=== PATIENT | female | born 1985 | race Caucasian/White ===

== ENCOUNTER 2020-02-16 10:28 | Inpatient (IN) | payer OTHER, SELFPAY ==
[2020-02-16] VITALS (7 sets, daily range): BP systolic 119–142; BP diastolic 69–89; PULSE 59–74; RESP 16–18; TEMP 36.6–37.2; O2SAT 94–100; BMI 49.7; BMI 49.4
--- NOTE | 2020-02-16 10:40 | CT_ITS ---
STUDY: CT ABDOMEN AND PELVIS WITH CONTRAST REASON FOR EXAM: Female, 34 years old. LLQ PAIN, ABSCESS, CHILLS RADIATION DOSAGE (If Supplied By Facility): CTDIvol = ( 17.06 ) mGy, DLP = ( 1476.28 ) mGycm TECHNIQUE: Transaxial images were obtained from the dome of the diaphragm to the symphysis pubis without oral contrast. IV 100mL Isovue-300 was administered. Sagittal and coronal images were reconstructed. Individualized dose optimization techniques were used for this CT. COMPARISON: None. FINDINGS: The visualized lung bases are unremarkable. The visualized portions of the heart are within normal limits. There is decreased attenuation of the liver consistent with steatosis. Normal gallbladder and extrahepatic biliary system. Normal spleen. Normal pancreas. Normal bilateral adrenal glands. Normal right kidney. Normal left kidney. Normal visualized stomach. Normal small intestine. Normal colon. The appendix is visualized and appears normal. Normal abdominal aorta. Normal inferior vena cava. There is borderline retroperitoneal lymphadenopathy with enlarged nodes no greater than 10mm in the short axis diameter. Normal urinary bladder. Small inguinal lymph nodes bilaterally. There is a 6.6 x 12.8 cm area of the subcutaneous edematous changes overlying the left groin. This is suggestive of cellulitis. No tracey abscess is seen. Normal abdominal wall. There are degenerative changes of the visualized lumbar spine. CT/Abdomen/Pelvis W IV Cont ONLY IMPRESSION: Findings suggest cellulitis in the area of the left groin as described. Electronically Signed: Brandon Darnell, at 12:17 EDT , Service support ,
[2020-02-16 11:00] LABS: Absolute Lymphocyte Count 3.99 X10^3/uL (0.83-4.51); Absolute Neutrophil Count 13.8 X10^3/uL (2.0-7.7); Basophil# 0.07 X10^3/uL; Basophil% 0.4 % (0-1); Eosinophil# 0.12 X10^3/uL; Eosinophils% 0.6 % (0-5); Hematocrit 46.3 % (37-47); Hemoglobin 15.3 g/dL (12.0-15.0); Lymphocyte # 3.99 X10^3/ul (4.0); Lymphocyte % 20.3 % (19-41); Mean Corpuscular Hgb 29.4 pg (27.0-32.0); Mean Platelet Vol. 11.6 fl (6.2-12.0); Monocyte# 1.64 X10^3/uL; Monocyte% 8.3 % (0-10); NRBC Flagged by Analyzer 0 % (0-5); Neutrophil # 13.75 X10^3/uL (2.7-7.7); Neutrophil % 69.7 % (47-70); POSITIVE DIFFERENTIAL YES; Platelet Count 220 K/mm3 (150-450); RBC Distribution Width CV 13.1 % (11.6-14.6); RBC Distribution Width SD 42.4 fl (35.1-43.9); White Blood Count 19.7 K/mm3 (4.4-11.0)
[2020-02-16 11:01] LABS: Differential Indicated SCAN CRITERIA MET
[2020-02-16 11:08] LABS: Bacteria 0 SEEN /hpf (None Seen); Mucous, Urine 0 SEEN /hpf (<or=2+); White Blood Cells 0 SEEN /hpf (0-5)
[2020-02-16] MEDS: Ondansetron 4 MG/2 ML Vial IV (11:09)
[2020-02-16] MEDS: Morphine 4 MG/ML Syringe IV (11:09)
[2020-02-16] MEDS: 0.9% Normal Saline 1,000 ML 1000 ML IV (11:09)
[2020-02-16 11:13] LABS: Anion Gap 6 (5-15); BUN 11 mg/dL (7-18); Calcium,Total 9.4 mg/dL (8.5-10.1); Chloride 102 mmol/L (98-107); Creatinine, Serum 0.85 mg/dL (0.55-1.02); EST Glomerular Filtration Rate 81 mL/min (>60); Est Glom Filt Rate - Afr Amer 98 mL/min (>60); Glucose 300 mg/dL (74-106); Potassium 4.2 mmol/L (3.5-5.1); Sodium Level 132 mmol/L (136-145)
--- NOTE | 2020-02-16 11:17 | ED.VISSUMM ---
- ER Visit Summary Date of Service: 02/16/20 Chief Complaint: Elevated blood sugar and left abdominal wall abscess History of Present Illness: The patient is a 34 F presenting to the ED for elevated blood sugars and abdominal wall abscess. She states she has had these abscesses in the past. She has had subjective fever and chills at home. She talked to her doctor yesterday who advised her to come in due to her blood sugar running high. She was started on Bactrim yesterday. Denies other complaints. Physical Examination: Vitals are stable. Patient is afebrile. Alert no acute distress. HEENT exam is unremarkable. Neck is supple. Lungs are clear and equal bilaterally. Heart is regular rate and rhythm. Abdomen is soft obese, left lower quadrant tenderness and induration Extremities are unremarkable. Skin is warm and dry. Remainder of exam is unremarkable. Emergency Department Course and Treatment: Patient was given IV fluids, morphine, Zofran. CBC shows white count 19.7. Chemistries show sodium 132, glucose 300. Urinalysis shows 0 white cells, 0-5 white blood cells, glucose. Blood cultures were sent. CT abdomen pelvis shows there is a 6.6 x 12.8 cm area of the subcutaneous edematous changes overlying the left groin. This is suggestive of cellulitis. No tracey abscess is seen. Patient was given Ancef IV. Discussed with hospitalist for observation. Disposition: Observation Impression: Abdominal wall cellulitis This note was generated with [employer] dictation software. It may contain incorrect words, spelling, and punctuation that were not noted in review of the chart prior to signing ED Disposition - Plan for ED Patient: Referrals: Amanda Wilkes MD [Primary Care Provider] -
[2020-02-16 11:52] LABS: Color, Urine Yellow (Yellow); Glucose, Dipstick 1000 mg/dl (Normal); Ketone-Dipstick 50 mg/dl (Negative); Leukocyte Esterase-Dipstick Negative /ul (Negative); Nitrite-Dipstick Negative (Negative); Occult Blood-Urine 25 /ul (Negative); Protein-Dipstick 30 mg/dl (Negative); Urine Bilirubin Dipstick Negative (Negative); Urine Clarity Sl. Cloudy (Clear); Urine Urobilinogen Normal (Normal)
[2020-02-16 12:04] LABS: Red Blood Cells-Urine 0-5 SEEN /hpf (0-5); Squamous Epithelial Cells - UA 0-5 SEEN /hpf (5-10)
[2020-02-16] MEDS: Cefazolin 1 GM/50 ML BAG IV ×2 (13:22→15:30)
--- NOTE | 2020-02-16 13:22 | NURSING ---
DR AMBROCIO CUTLER
--- NOTE | 2020-02-16 13:30 | NURSING ---
MED SURG OBS TERBETO ABD WALL CELLULITIS
--- NOTE | 2020-02-16 14:33 | PCM.HP.STD ---
Problem List (1) Type 2 diabetes mellitus Status: Chronic (2) Hyperlipidemia Status: Chronic (3) Hypertension Status: Chronic History of Present Illness Date of Admission: 02/16/20 Chief Complaint: Left groin redness. The patient is a 34 year old F who presents emergency room due to left groin/abdomen redness, firmness and pain. Patient reports she felt a bump in that area and now it is very painful to touch with increasing redness and induration. She reports fever and chills at home. Denies drainage in that area. She has a history of hidradenitis suppurativa requiring abscess drainage in the past. Patient reports her blood glucose has been out of control recently. She reports her last hemoglobin A1c was 13%. She denies nausea, vomiting. Denies other associated complaints. She has a past medical history of hypertension, hyperlipidemia, uncontrolled type 2 diabetes mellitus. Past Medical History Past Medical History (Chronic Problems): Chronic Problems Type 2 diabetes mellitus (Chronic) Hyperlipidemia (Chronic) Hypertension (Chronic) Allergies No Known Allergies Allergy (Verified 02/16/20 10:29) Home Medications: Ambulatory Orders Medication Instructions Recorded Atorvastatin Calcium [Lipitor] 40 mg PO QHS 02/16/20 Dulaglutide [Trulicity] 0.75 mg SQ QWEEK 02/16/20 Ergocalciferol [Vitamin D] 1 cap PO QWEEK 02/16/20 Insulin Glargine,Hum.rec.anlog 14 unit SUBCUT QHS 02/16/20 [Basaglar Kwikpen U-100] Labetalol HCl 100 mg PO BID 02/16/20 Sulfamethoxazole/Trimethoprim 1 ea PO BID 02/16/20 [Sulfamethoxazole-Tmp Ds Tablet] metFORMIN HCl [Glucophage] 1,000 mg PO BID 02/16/20 Surgical History: no surgical history Psychiatric History: No pertinent psych hx MENTAL TELEPATHIST History: No pertinent MENTAL TELEPATHIST history Lives: Alone Smoking Status: Current some day smoker Tobacco Use: Cigarettes Alcohol: None Drugs: None - *Family History Maternal History Items: - - Denies known maternal medical history including cardiac history. Paternal History Items: Diabetes, Heart Disease, Hypertension Review of Systems Constitutional: Reports: Chills, Fever. Denies: Weight Change HEENT: Denies: Head Aches, Sinus Congestion, Sinus Drainage Cardiovascular: Denies: Chest Pain, Palpitations Respiratory: Denies: Cough, Shortness of breath at rest, Sputum production Gastrointestinal: Denies: Abdominal Pain, Nausea, Vomiting Genitourinary: Denies: Dysuria Musculoskeletal: Denies: Joint Pain, Joint Tenderness Skin: Reports: - - Left groin/abdomen redness, firmness, pain. Neurological: Denies: Numbness, Tingling, Focal weakness Psychiatric: Denies: Anxiety, Depression, Homicidal Ideations, Suicidal Ideations Hematologic/ Lymphatic: Denies: Easy Bruising, Easy Bleeding VTE Information - Inpt Only VTE Present on Admission: No VTE Mechan Device Prophylaxis: None VTE Pharm Prophylaxis ordered?: No Reason prophylaxis not ordered:: Treatment Not Indicated - Physical Exam Vitals/I&O's: Vital Signs Temp Pulse Resp BP Pulse Ox 98.1 F 60 18 119/72 100 02/16/20 14:25 02/16/20 14:25 02/16/20 14:25 02/16/20 14:25 02/16/20 14:25 Oxygen Delivery Method Room Air Weight: 325 lb Body Mass Index (BMI) 49.4 Intake and Output for Last 24 Hours 02/14/20 02/15/20 02/16/20 23:59 23:59 23:59 Intake Total 1050 / 1050 Balance 1050 / 1050 General: Alert, Oriented x3, Cooperative HEENT: Atraumatic, PERRLA, EOMI, Normocephalic Neck: Supple, No JVD, Negative Carotid Bruits Lungs: Clear to auscultation, Normal air movement Cardiovascular: Regular rate, No murmurs Abdomen: Bowel Sounds Present, Soft, Non Tender, Non-Distended, Obese Extremities: No clubbing, No cyanosis, No edema, Capillary Refill Less than 3 Seconds Skin: - - Left groin and abdomen redness with large area of induration. Musculoskeletal: No Tenderness to Palpation of Joints or Extremities Neurological: Cranial nerves II-XII grossly intact Psych/Mental Status: Normal Affect, Appropriate Laboratory Results 02/16/20 10:49: WBC 19.7 H, RBC 5.20, Hgb 15.3 H, Hct 46.3, MCV 89.0, MCH 29.4, MCHC 33.0, RDW Std Deviation 42.4, RDW Coeff of Violeta 13.1, Plt Count 220, MPV 11.6, Immature Gran % (Auto) 0.700, Neut % (Auto) 69.7, Lymph % (Auto) 20.3, [place] % (Auto) 8.3, Eos % (Auto) 0.6, Baso % (Auto) 0.4, Absolute Neuts (auto) 13.8 H, Absolute Lymphs (auto) 3.99, Nucleated RBC % 0, Differential Comment COMMENT, Diff Path Review January02/16/20 10:49: Sodium 132 L, Potassium 4.2, Chloride 102, Carbon Dioxide 24.0, Anion Gap 6, BUN 11, Creatinine 0.85, Estim Creat Clear Calc 92.30, Est GFR (MDRD) Af Amer 98, Est GFR (MDRD) Non-Af 81, BUN/Creatinine Ratio 13.0, Glucose 300 H, Calcium 9.4 02/16/20 11:04: Urine Color Yellow, Urine Clarity Sl. Cloudy, Urine pH 6.0, Ur Specific [place] 1.020, Urine Protein 30 H, Urine Glucose (UA) 1000 H, Urine Ketones 50 H, Urine Occult Blood 25 H, Urine Nitrite Negative, Urine Bilirubin Negative, Urine Urobilinogen Normal, Ur Leukocyte Esterase Negative, Urine RBC 0-5 SEEN, Urine WBC 0 SEEN, Ur Squamous Epith Cells 0-5 SEEN, Urine Bacteria 0 SEEN, Urine Mucus 0 SEEN Current Medications Atorvastatin Calcium (Lipitor) 40 mg PO QHS [facility] Dextrose (D50w Syringe) 0 gm IV X1 PRN; Protocol PRN Reason: Hypoglycemia Glucagon () 1 mg IM .X1 PRN PRN Reason: Hypoglycemia Cefazolin Sodium 2 gm/ Sodium (Chloride) 110 mls @ 150 mls/hr IV Q8 [facility] Sodium Chloride () 250 mls @ 15 mls/hr IV .[id number] PRN PRN Reason: Saline Flush Sodium Chloride () 250 mls @ 15 mls/hr IV .[id number] PRN PRN Reason: Additional IVPB Infusion Cefazolin Sodium () 1 gm in 50 mls @ 150 mls/hr IV X1 ONE Stop: 02/16/20 15:04 Insulin Glargine (Lantus (Bkc)) 14 units SC QHS [facility] Insulin Human Lispro (Humalog Kwikpen (Bkc)) 0 unit SC ACHS [facility]; Protocol Labetalol HCl (Trandate) 100 mg PO BID [facility]formin [facility] ([facility]) [facility] Ondansetron HCl (Zofran) 4 mg IV Q8H PRN PRN PRN Reason: NAUSEA/VOMITING Oxycodone HCl (Oxyir) 10 mg PO Q4H PRN PRN PRN Reason: Pain Score 6-10/10 Sodium Chloride () 10 - 40 ml IV UD PRN PRN Reason: SALINE FLUSH Assessment/Plan 1. Sepsis secondary to abdominal wall cellulitis, history of hidradenitis suppurativa-CT of abdomen pelvis shows cellulitis, no abscess. Warm compress. IV cefazolin. PRN pain regimen. 2. Uncontrolled type 2 diabetes mellitus-on metformin, Trulicity with recent addition of Basaglar. Will increase long-acting to 20 units nightly with further titration. 3. Morbid obesity-encouraged diet lifestyle applications. 4. Hyperlipidemia-continue statin. 5. Tobacco dependence-current pack per day smoker. Encouraged cessation. Declines nicotine replacement patch. DVT prophylaxis-not indicated, low risk This patient was seen by SAUL Garces under the supervision of Dr. Miller.
[2020-02-16] MEDS: 0.9% Saline Lock 10 ML Syringe IV ×3 (15:30→21:07)
[2020-02-16] MEDS: Insulin Lispro 100 UNIT/ML INSULN.PEN SC ×2 (15:31→21:10)
[2020-02-16 15:41] LABS: Bedside Glucose 243 mg/dL (70-110)
[2020-02-16] MEDS: Ibuprofen 600 MG Tablet PO ×2 (16:17→23:15)
[2020-02-16] MEDS: metFORMIN HCl 1,000 MG Tablet 1000 MG PO (16:17)
[2020-02-16] MEDS: oxyCODONE 5 MG Tablet 10 MG PO (17:32)
[2020-02-16] MEDS: Cefazolin 2 GM in 0.9% Normal Saline 100 ML IV (21:07)
[2020-02-16] MEDS: Atorvastatin Calcium 40 MG Tablet PO (21:17)
[2020-02-16] MEDS: Labetalol 100 MG Tablet PO (21:17)
[2020-02-16 21:51] LABS: Bedside Glucose 248 mg/dL (70-110)
[2020-02-17] MEDS: 0.9% Saline Lock 10 ML Syringe IV ×6 (05:20→23:11)
[2020-02-17] MEDS: Ibuprofen 600 MG Tablet PO ×3 (05:20→23:11)
[2020-02-17] MEDS: Cefazolin 2 GM in 0.9% Normal Saline 100 ML IV ×3 (05:20→23:11)
[2020-02-17 05:25] VITALS: BP 138/75; PULSE 64; RESP 16; TEMP 37; O2SAT 99
[2020-02-17 05:46] LABS: Absolute Lymphocyte Count 3.98 X10^3/uL (0.83-4.51); Absolute Neutrophil Count 13.3 X10^3/uL (2.0-7.7); Basophil# 0.12 X10^3/uL; Basophil% 0.6 % (0-1); Eosinophil# 0.21 X10^3/uL; Eosinophils% 1.1 % (0-5); Hematocrit 46.1 % (37-47); Hemoglobin 14.6 g/dL (12.0-15.0); Lymphocyte # 3.98 X10^3/ul (4.0); Lymphocyte % 20.2 % (19-41); Mean Corp Hgb Conc 31.7 g/dL (32-36); Mean Corpuscular Hgb 29.1 pg (27.0-32.0); Mean Platelet Vol. 11.7 fl (6.2-12.0); Monocyte# 1.92 X10^3/uL; Monocyte% 9.7 % (0-10); NRBC Flagged by Analyzer 0 % (0-5); Neutrophil # 13.34 X10^3/uL (2.7-7.7); Neutrophil % 67.7 % (47-70); POSITIVE DIFFERENTIAL YES; Platelet Count 184 K/mm3 (150-450); RBC Distribution Width CV 13.2 % (11.6-14.6); RBC Distribution Width SD 44.7 fl (35.1-43.9); Red Blood Count 5.01 M/mm3 (4.2-5.4); White Blood Count 19.7 K/mm3 (4.4-11.0)
[2020-02-17 05:47] LABS: Differential Indicated SCAN CRITERIA MET
[2020-02-17 06:37] LABS: Differential Comment SCANNED
[2020-02-17] MEDS: Insulin Lispro 100 UNIT/ML INSULN.PEN SC ×4 (06:48→21:37)
[2020-02-17] MEDS: Ondansetron 4 MG/2 ML Vial IV (06:53)
[2020-02-17 06:55] LABS: Bedside Glucose 204 mg/dL (70-110)
[2020-02-17] MEDS: metFORMIN HCl 1,000 MG Tablet 1000 MG PO ×2 (08:04→15:59)
[2020-02-17 09:00] VITALS: BP 121/77; PULSE 76; RESP 16; RESP 18; TEMP 37; O2SAT 99
[2020-02-17 09:59] LABS: Pathologist Review Reviewed
[2020-02-17 10:01] LABS: Pathologist Review Reviewed
[2020-02-17] MEDS: Labetalol 100 MG Tablet PO ×2 (10:56→21:36)
[2020-02-17] MEDS: HYDROcodone Bitartrate/Apap 5/325 Tablet PO ×2 (11:25→18:24)
[2020-02-17 12:10] LABS: Bedside Glucose 238 mg/dL (70-110)
[2020-02-17] MEDS: Doxycycline 100 MG CAPSULE PO ×2 (12:28→21:36)
--- NOTE | 2020-02-17 13:49 | PCM.PN.HOSP ---
Reason for Visit: L groin cellulitis Subjective: Pt feels that the abx have not had any affect. She c/o swelling, pain, and warmth at the left groin. Hx HS with right groin wound requiring surgical drainage. No collection on CT. Pt c/o chills. Mild nausea. No vomiting. No diarrhea. No SOB/cough. Vitals/I&O's: Vital Signs Temp Pulse Resp BP Pulse Ox 98.6 F 76 18 121/77 H 99 02/17/20 09:00 02/17/20 09:00 02/17/20 09:00 02/17/20 09:00 02/17/20 09:00 Oxygen Delivery Method Room Air Weight: 325 lb Body Mass Index (BMI) 49.4 Intake and Output for Last 24 Hours 02/15/20 02/16/20 02/17/20 23:59 23:59 23:59 Intake Total 1210 / 1510 1523.50 / 1523.50 Balance 1210 / 1510 1523.50 / 1523.50 General: Alert, Oriented x3, Cooperative HEENT: Atraumatic, PERRLA, EOMI, Normocephalic Neck: Supple, No JVD, Negative Carotid Bruits Lungs: Clear to auscultation, Normal air movement Cardiovascular: Regular rate, No murmurs Abdomen: Bowel Sounds Present, Soft, Non Tender, Obese Extremities: No edema, Capillary Refill Less than 3 Seconds Skin: No rashes, No breakdown, - - left groin with warmth, erythema, tenderness, and induration. Musculoskeletal: No Tenderness to Palpation of Joints or Extremities Neurological: Cranial nerves II-XII grossly intact Psych/Mental Status: Normal Affect, Appropriate Laboratory Results 02/16/20 10:49: Diff Path Review Reviewed 02/16/20 15:27: POC Glucose 243 H 02/16/20 21:06: POC Glucose 248 H 02/17/20 05:14: WBC 19.7 H, RBC 5.01, Hgb 14.6, Hct 46.1, MCV 92.0, MCH 29.1, MCHC 31.7 L, RDW Std Deviation 44.7 H, RDW Coeff of Violeta 13.2, Plt Count 184, MPV 11.7, Immature Gran % (Auto) 0.700, Neut % (Auto) 67.7, Lymph % (Auto) 20.2, [place] % (Auto) 9.7, Eos % (Auto) 1.1, Baso % (Auto) 0.6, Absolute Neuts (auto) 13.3 H, Absolute Lymphs (auto) 3.98, Nucleated RBC % 0, Differential Comment SCANNED, Diff Path Review Reviewed 02/17/20 06:48: POC Glucose 204 H 02/17/20 12:05: POC Glucose 238 H Current Medications Hydrocodone Bitart/Acetaminophen ([place] 5mg-325mg) 2 tablet PO Q6H PRN PRN PRN Reason: Pain Score 6-10/10 Last Admin: 02/17/20 11:25 Dose: 2 tablet Documented by: Atorvastatin Calcium (Lipitor) 40 mg PO QHS [facility] Last Admin: 02/16/20 21:17 Dose: 40 mg Documented by: Dextrose (D50w Syringe) 0 gm IV X1 PRN; Protocol PRN Reason: Hypoglycemia Doxycycline Monohydrate (Doxycycline) 100 mg PO BID [facility] Last Admin: 02/17/20 12:28 Dose: 100 mg Documented by: Glucagon () 1 mg IM .X1 PRN PRN Reason: Hypoglycemia Sodium Chloride () 250 mls @ 15 mls/hr IV .[id number] PRN PRN Reason: Saline Flush Last Infusion: 02/17/20 06:57 Dose: 0 mls/hr Documented by: Sodium Chloride () 250 mls @ 15 mls/hr IV .[id number] PRN PRN Reason: Additional IVPB Infusion Ibuprofen (Motrin) 600 mg PO Q6H PRN PRN PRN Reason: Pain Score 1-10/10 Last Admin: 02/17/20 05:20 Dose: 600 mg Documented by: Insulin Glargine (Lantus (Bkc)) 25 units SC QHS [facility] Last Admin: 02/16/20 21:12 Dose: 25 u Documented by: Insulin Human Lispro (Humalog Kwikpen (Bk)) 0 unit SC [facility]; Protocol Last Admin: 02/17/20 12:21 Dose: 6 units Documented by: Labetalol HCl (Trandate) 100 mg PO BID [facility] Last Admin: 02/17/20 10:56 Dose: 100 mg Documented by: Metformin HCl (Glucophage) 1,000 mg PO BIDCM [facility] Last Admin: 02/17/20 08:04 Dose: 1,000 mg Documented by: Nicotine (Nicoderm Cq (Pbkc)) 21 mg TRANSDERM. DAILY [facility] Last Admin: 02/17/20 11:00 Dose: 21 mg Documented by: Ondansetron HCl (Zofran) 4 mg IV Q8H PRN PRN PRN Reason: NAUSEA/VOMITING Last Admin: 02/17/20 06:53 Dose: 4 mg Documented by: Sodium Chloride () 10 - 40 ml IV UD PRN PRN Reason: SALINE FLUSH Last Admin: 02/17/20 06:53 Dose: 10 ml Documented by: Medical Necessity - Tobacco Use Smoking Status: Current some day smoker Tobacco Use: Cigarettes Assessment/Plan 1. L groin cellulitis 2/2 Hydradenitis Suppuritiva - change abx from ancef to doxy. WBC persistently elevated. No fever/Minimal improvement. CT without collection. Pt needs weight loss and smoking cessation. Took 1 day of bactrim prior to admission. 2. Nicotine abuse - patch added 3. T2DM with Morbid obesity - review consultant consult. Metformin, Lantus, SSI. 4. HTN - o/p labetalol continued. 5. HLD - lipitor DVT ppx: early ambulation DC planning: minimal improvement. maintain on abx overnight. This patient was seen by Matthias Torres PA-C under the supervision of Dr. Miller
[2020-02-17 16:00] VITALS: BP 151/99; PULSE 65; RESP 16; TEMP 36.7; O2SAT 100
[2020-02-17 16:15] LABS: Bedside Glucose 262 mg/dL (70-110)
[2020-02-17] MEDS: Nicotine Polacrilex 2 MG GUM PO ×2 (18:13→20:35)
[2020-02-17 20:41] VITALS: BP 121/70; PULSE 63; RESP 16; TEMP 37.1; O2SAT 98
[2020-02-17] MEDS: Atorvastatin Calcium 40 MG Tablet PO (21:38)
[2020-02-17 21:46] LABS: Bedside Glucose 209 mg/dL (70-110)
[2020-02-18] VITALS (7 sets, daily range): BP systolic 109–157; BP diastolic 65–89; PULSE 58–78; RESP 16–18; TEMP 36.6–38.2; O2SAT 94–98
[2020-02-18] MEDS: HYDROcodone Bitartrate/Apap 5/325 Tablet PO ×3 (05:29→17:58)
[2020-02-18] MEDS: 0.9% Saline Lock 10 ML Syringe IV ×3 (05:29→14:06)
[2020-02-18] MEDS: Cefazolin 2 GM in 0.9% Normal Saline 100 ML IV (05:29)
[2020-02-18] MEDS: Nicotine Polacrilex 2 MG GUM PO ×5 (05:33→21:42)
[2020-02-18 05:57] LABS: Absolute Lymphocyte Count 3.68 X10^3/uL (0.83-4.51); Absolute Neutrophil Count 11.5 X10^3/uL (2.0-7.7); Basophil# 0.06 X10^3/uL; Basophil% 0.4 % (0-1); Eosinophils% 1.2 % (0-5); Hemoglobin 14.8 g/dL (12.0-15.0); Lymphocyte # 3.68 X10^3/ul (4.0); Lymphocyte % 21.6 % (19-41); Mean Corp Hgb Conc 30.8 g/dL (32-36); Mean Corpuscular Hgb 28.5 pg (27.0-32.0); Mean Corpuscular Volume 92.3 fL (81-99); Mean Platelet Vol. 11.8 fl (6.2-12.0); Monocyte# 1.43 X10^3/uL; Monocyte% 8.4 % (0-10); NRBC Flagged by Analyzer 0 % (0-5); Neutrophil % 67.6 % (47-70); Platelet Count 223 K/mm3 (150-450); RBC Distribution Width SD 44.2 fl (35.1-43.9)
[2020-02-18] MEDS: Insulin Lispro 100 UNIT/ML INSULN.PEN SC ×4 (06:39→16:41)
[2020-02-18 06:45] LABS: Bedside Glucose 230 mg/dL (70-110)
[2020-02-18] MEDS: metFORMIN HCl 1,000 MG Tablet 1000 MG PO ×2 (07:34→16:42)
[2020-02-18] MEDS: Ibuprofen 600 MG Tablet PO ×2 (10:18→23:47)
[2020-02-18] MEDS: Labetalol 100 MG Tablet PO ×2 (10:19→21:51)
[2020-02-18] MEDS: Doxycycline 100 MG CAPSULE PO (10:19)
--- NOTE | 2020-02-18 10:35 | PCM.PN.HOSP ---
Reason for Visit: L groin HS Subjective: Pt feels that her cellulitis is not improved. She has ongoing severe pain. There is no open area or drainage. She has no fever/chills. No N/V/D. No cough/SOB Vitals/I&O's: Vital Signs Temp Pulse Resp BP Pulse Ox 98.0 F 58 L 18 123/76 H 98 02/18/20 09:13 02/18/20 09:13 02/18/20 10:12 02/18/20 09:13 02/18/20 09:13 Oxygen Delivery Method Room Air Weight: 325 lb Body Mass Index (BMI) 49.4 Intake and Output for Last 24 Hours 02/16/20 02/17/20 02/18/20 23:59 23:59 23:59 Intake Total 1210 / 1510 2159.25 / 2159.25 1568.0 / 1568.0 Balance 1210 / 1510 2159.25 / 2159.25 1568.0 / 1568.0 General: Alert, Oriented x3, Cooperative HEENT: Atraumatic, PERRLA, EOMI, Normocephalic Neck: Supple, No JVD, Negative Carotid Bruits Lungs: Clear to auscultation, Normal air movement Cardiovascular: Regular rate, No murmurs Abdomen: Bowel Sounds Present, Soft, Non Tender, Obese Extremities: No edema, Capillary Refill Less than 3 Seconds Skin: - - somewhat less indurated today. otherwise no change. Musculoskeletal: No Tenderness to Palpation of Joints or Extremities Neurological: Cranial nerves II-XII grossly intact Psych/Mental Status: Normal Affect, Appropriate Laboratory Results 02/17/20 12:05: POC Glucose 238 H 02/17/20 15:57: POC Glucose 262 H 02/17/20 21:35: POC Glucose 209 H 02/18/20 05:20: WBC 17.0 H, RBC 5.20, Hgb 14.8, Hct 48.0 H, MCV 92.3, MCH 28.5, MCHC 30.8 L, RDW Std Deviation 44.2 H, RDW Coeff of Violeta 13.0, Plt Count 223, MPV 11.8, Immature Gran % (Auto) 0.800, Neut % (Auto) 67.6, Lymph % (Auto) 21.6, [place] % (Auto) 8.4, Eos % (Auto) 1.2, Baso % (Auto) 0.4, Absolute Neuts (auto) 11.5 H, Absolute Lymphs (auto) 3.68, Nucleated RBC % 0 02/18/20 06:38: POC Glucose 230 H Current Medications Hydrocodone Bitart/Acetaminophen ([place] 5mg-325mg) 2 tablet PO Q6H PRN PRN PRN Reason: Pain Score 6-10/10 Last Admin: 02/18/20 05:29 Dose: 2 tablet Documented by: Atorvastatin Calcium (Lipitor) 40 mg PO QHS [facility] Last Admin: 02/17/20 21:38 Dose: 40 mg Documented by: Dextrose (D50w Syringe) 0 gm IV X1 PRN; Protocol PRN Reason: Hypoglycemia Doxycycline Monohydrate (Doxycycline) 100 mg PO BID [facility] Last Admin: 02/18/20 10:19 Dose: 100 mg Documented by: Glucagon () 1 mg IM .X1 PRN PRN Reason: Hypoglycemia Sodium Chloride () 250 mls @ 15 mls/hr IV .[id number] PRN PRN Reason: Saline Flush Last Infusion: 02/18/20 06:47 Dose: 0 mls/hr Documented by: Sodium Chloride () 250 mls @ 15 mls/hr IV .[id number] PRN PRN Reason: Additional IVPB Infusion Ampicillin Sodium/Sulbactam (Sodium 3 gm/ Sodium Chloride) 112 mls @ 150 mls/hr IV Q8 [facility] Ibuprofen (Motrin) 600 mg PO Q6H PRN PRN PRN Reason: Pain Score 1-10/10 Last Admin: 02/18/20 10:18 Dose: 600 mg Documented by: Insulin Glargine (Lantus (Bkc)) 25 units SC QHS [facility] Last Admin: 02/17/20 21:37 Dose: 25 u Documented by: Insulin Human Lispro (Humalog Kwikpen (Bkc)) 0 unit SC [facility]; Protocol Last Admin: 02/18/20 06:39 Dose: 6 units Documented by: Labetalol HCl (Trandate) 100 mg PO BID [facility] Last Admin: 02/18/20 10:19 Dose: 100 mg Documented by: [facility] Last Admin: 02/18/20 07:34 Dose: 1,000 mg Documented by: Nicotine (Nicoderm Cq (Pbkc)) 21 mg TRANSDERM. DAILY [facility] Last Admin: 02/18/20 10:18 Dose: 21 mg Documented by: Nicotine Polacrilex ([place] Nicotine (Bkc)) 2 mg PO Q2H PRN PRN PRN Reason: Nicotine Craving Last Admin: 02/18/20 10:21 Dose: 2 mg Documented by: Ondansetron HCl (Zofran) 4 mg IV Q8H PRN PRN PRN Reason: NAUSEA/VOMITING Last Admin: 02/17/20 06:53 Dose: 4 mg Documented by: Sodium Chloride () 10 - 40 ml IV UD PRN PRN Reason: SALINE FLUSH Last Admin: 02/18/20 05:29 Dose: 10 ml Documented by: STROKE Vital Signs/Narrative: Vital Signs Temp Pulse Resp BP Pulse Ox 02/18/20 10:12 18 02/18/20 09:13 98.0 F 58 L 16 123/76 H 98 Medical Necessity - Tobacco Use Smoking Status: Current some day smoker Tobacco Use: Cigarettes Assessment/Plan 1. L groin cellulitis 2/2 Hydradenitis Suppurativa - ancef changed to unasyn. continue doxy. consult Dr. Asencio. WBC slightly improved. afeb. 2. Nicotine abuse - patch, gum. 3. T2DM with Morbid obesity - shoe repairer apprentice consult. Metformin, Lantus, SSI. 4. HTN - o/p labetalol continued. 5. HLD - lipitor DVT ppx: early ambulation DC planning: pt may need surgery. This patient was seen by Matthias Torres PA-C under the supervision of Dr. Franz
[2020-02-18 11:40] LABS: Bedside Glucose 233 mg/dL (70-110)
[2020-02-18 13:17] LABS: Erythrocyte Sedimentation Rate 72 mm/hr (0-20)
--- NOTE | 2020-02-18 13:28 | CASEMGMT ---
RN CM ASSISTANT EDUCATION DIRECTOR CM to room to meet with patient for initial transition planning/care coordination assessment. RN ROSI introduced self and role at [facility]. Pt voices understanding and consents to assessment at this time. Pt resting in bed in no distress at this time. Pt is A/O at this time and answers all questions appropriately. Care providers, pharmacy, and demographics verified/updated at this time. PCP: Dr Wilkes Specialists: None Preferred Pharmacy: [facility] Insurance: [facility] Prescription Benefit: Yes Living Will/HPOA: States does not have LW or HCPOA . Interested in more information and would like to talk with SW. SW, Ivis Resendiz, made aware. Pt also provided information on advanced directives and given Social Service rac card with number to call as an out-pt, if SW is unable to talk with her prior to being discharged. Pt voices understanding. LNOK: Mom, Humaira Sher Living Arrangements: Lives with her significant other in 2nd story apartment. States she does not have any difficulty with the stairs. State her significant other has cerebral palsy and she helps to care for him. Pt is independent. Transportation: Pt states drives self and states no transportation concerns at this time. States her car is here @ [facility] and plans on driving herself home if able to @ d/c. Pt states if she is unable to drive herself home, that she does have someone she can call to take her home. DME: Has a glucometer--states it is working properly and she has all the needed supplies. HHC/SNF: No history of either. Tonnage Compilation Clerk has been consulted d/t DM. Pt made aware eligibility manager would be coming to talk with her and also provided her with Rac Card for [facility]. Pt wishes to return home and states has no concerns with going home at time of discharge. CM to follow for any discharge planning/needs. Pt voices no concerns/needs at this time. Advised pt to ask for CM if any further questions/concerns/needs arise. Voices understanding. PLAN: Home Order has been placed for C/S Dr Asencio. Pt may need surgery. Unkown at this time if pt will need wound vac or assistance w/dressing changes. CM to follow and re-assess for any discharge needs. Sita MARTINEZ RN, CM
[2020-02-18 13:56] LABS: Hemoglobin A1c 11.7 % (3.8-5.6)
[2020-02-18 13:58] LABS: ALB/GLOB Ratio 0.6 RATIO (0.9-2.4); AST(SGOT) 26 U/L (15-37); Alanine Aminotransfer ALT/SGPT 39 U/L (13-56); Albumin, Serum 2.8 g/dL (3.2-5.0); Alkaline Phosphatase 83 U/L (45-117); Anion Gap 8 (5-15); BUN 13 mg/dL (7-18); BUN/Creat Ratio 17.7 RATIO (10-20); Calcium,Total 9.1 mg/dL (8.5-10.1); Chloride 105 mmol/L (98-107); Creatinine, Serum 0.74 mg/dL (0.55-1.02); EST Glomerular Filtration Rate 95 mL/min (>60); Est Glom Filt Rate - Afr Amer 115 mL/min (>60); Estimated Creatinine Clearance 106.02 ml/min; Globulin 4.8 g/dL (2.2-4.2); Glucose 214 mg/dL (74-106); Magnesium 1.7 mg/dL (1.6-2.6); Potassium 3.8 mmol/L (3.5-5.1); Protein, Total 7.6 g/dL (6.4-8.2); Sodium Level 136 mmol/L (136-145)
[2020-02-18] MEDS: HYDROmorphone 0.5 MG/0.5 ML SYRINGE IV ×2 (14:06→21:32)
--- NOTE | 2020-02-18 14:26 | CASEMGMT ---
Social Work Note SW received referral for advanced directives. SW in to speak with pt. SW introduced self and role at [facility]. Pt completed HCPOA only, denied wanting to complete Living Will at this time. Original HCPOA provided to pt, copy on pt's chart. Ivis Resendiz ELECTRONIC GAME DEVELOPER, DONKEY DOCTOR
--- NOTE | 2020-02-18 14:48 | PCM.RX.CS ---
Consult Pharmacy has been consulted to manage selected antiobiotic: Vancomycin Type of Consult: New start Suspected Infection: Skin/Soft tissue Prior Doses of Antibiotics Received/Current Regimen: Received loading dose of 2gm iv x1. Labs: Sodium 136 mmol/L (136-145) 02/18/20 13:06 Potassium 3.8 mmol/L (3.5-5.1) 02/18/20 13:06 Chloride 105 mmol/L (98-107) 02/18/20 13:06 Carbon Dioxide 23.0 mmol/L (21.0-32.0) 02/18/20 13:06 Anion Gap 8 (5-15) 02/18/20 13:06 BUN 13 mg/dL (7-18) 02/18/20 13:06 Creatinine 0.74 mg/dL (0.55-1.02) 02/18/20 13:06 Est GFR (MDRD) Af Amer 115 mL/min (>60) 02/18/20 13:06 Est GFR (MDRD) Non-Af 95 mL/min (>60) 02/18/20 13:06 BUN/Creatinine Ratio 17.7 RATIO (10-20) 02/18/20 13:06 Glucose 214 mg/dL (74-106) H 02/18/20 13:06 Microbiology: Microbiology 02/16/20 13:15 Blood Culture (Wb) - Right Forearm Blood Culture - Preliminary No growth in 48 hours. 02/16/20 13:20 Blood Culture (Wb) - Right Hand Blood Culture - Preliminary No growth in 48 hours. Weight used for dosin kg Estimated Creatinine Clearance: 92ml/min Goal Trough: 15-20 mcg/mL Pharmacy Plan for Drug Dosing: Will begin 1250mg iv q8h starting 8hrs after loading dose. Trough level ordered for before 4th total dose on 02.19.20. Pharmacy Service will continue to monitor and adjust dosing as required. Follow-Up Labs: Trough Vancomycin - 02.19.20 @1330 before 1400 dose
[2020-02-18 16:26] LABS: Bedside Glucose 203 mg/dL (70-110)
[2020-02-18] MEDS: Atorvastatin Calcium 40 MG Tablet PO (21:50)
[2020-02-18 23:46] LABS: Bedside Glucose 203 mg/dL (70-110)
[2020-02-19] MEDS: HYDROmorphone 0.5 MG/0.5 ML SYRINGE IV ×4 (05:18→18:05)
[2020-02-19] MEDS: Nicotine Polacrilex 2 MG GUM PO ×4 (05:25→20:17)
[2020-02-19 05:30] VITALS: BP 143/70; PULSE 64; RESP 18; TEMP 36.4; O2SAT 95
[2020-02-19] MEDS: HYDROcodone Bitartrate/Apap 5/325 Tablet PO ×3 (07:11→21:47)
[2020-02-19] MEDS: 0.9% Saline Lock 10 ML Syringe IV ×4 (07:14→23:16)
[2020-02-19 07:15] VITALS: TEMP 36.4
[2020-02-19 07:52] LABS: Absolute Lymphocyte Count 4.11 X10^3/uL (0.83-4.51); Absolute Neutrophil Count 10.4 X10^3/uL (2.0-7.7); Basophil# 0.05 X10^3/uL; Basophil% 0.3 % (0-1); Eosinophil# 0.24 X10^3/uL; Eosinophils% 1.5 % (0-5); Hematocrit 44.7 % (37-47); Hemoglobin 14.1 g/dL (12.0-15.0); Lymphocyte # 4.11 X10^3/ul (4.0); Lymphocyte % 25.2 % (19-41); Mean Corp Hgb Conc 31.5 g/dL (32-36); Mean Corpuscular Hgb 28.5 pg (27.0-32.0); Mean Corpuscular Volume 90.5 fL (81-99); Mean Platelet Vol. 11.8 fl (6.2-12.0); Monocyte# 1.43 X10^3/uL; Monocyte% 8.8 % (0-10); NRBC Flagged by Analyzer 0 % (0-5); Neutrophil # 10.39 X10^3/uL (2.7-7.7); Neutrophil % 63.7 % (47-70); Platelet Count 264 K/mm3 (150-450); RBC Distribution Width SD 42.9 fl (35.1-43.9); Red Blood Count 4.94 M/mm3 (4.2-5.4); White Blood Count 16.3 K/mm3 (4.4-11.0)
[2020-02-19] MEDS: Insulin Lispro 100 UNIT/ML INSULN.PEN SC ×5 (08:04→16:40)
[2020-02-19 08:06] LABS: Bedside Glucose 215 mg/dL (70-110)
[2020-02-19 08:34] LABS: Anion Gap 4 (5-15); BUN 9 mg/dL (7-18); BUN/Creat Ratio 13.8 RATIO (10-20); Calcium,Total 9.1 mg/dL (8.5-10.1); Chloride 107 mmol/L (98-107); Cholesterol 89 mg/dL (200); Creatinine, Serum 0.65 mg/dL (0.55-1.02); EST Glomerular Filtration Rate 109 mL/min (>60); Est Glom Filt Rate - Afr Amer 132 mL/min (>60); Glucose 208 mg/dL (74-106); High Density Lipoprotein 20 mg/dL; Potassium 4.3 mmol/L (3.5-5.1); Sodium Level 137 mmol/L (136-145); Triglycerides 117 mg/dL; Very Low Density Lipoprotein 23 mg/dL (5-40)
--- NOTE | 2020-02-19 08:43 | CON.PCM_ITS ---
Reason for Consult Date of Consultation: 02/19/20 History of Present Illness: The patient is a 34 year old F presented to the ER due to left groin pain/cellulitis. Patient states her discomfort started on Friday and continued to get worse. Patient was placed on p.o. antibiotics initially yesterday was changed to Zosyn and Vanco as her white blood cell count did not change too much from admission she was 19s initially on admission and yesterday she was still 17. Patient's initial CT of abdomen pelvis on admit showed inflammation/cellulitis with CT no obvious fluid collection. Patient is a diabetic her blood sugars are not controlled her A1c is 11.5 patient states at home her blood sugars running at 300s currently here other in the 200s. Patient states she does have history of hidradenitis her last issue was in 2018 she states she has had a previous I&D it was in the right groin but denies any further surgery or treatment for this. Patient states the discomfort started more medially and increased laterally. Yesterday patient did have some serous drainage from this area initial bedside ultrasound not showing obvious fluid collection some edema and small areas of the tracks. Patient states that last night the area that had the serous drainage opened up and was draining purulent foul-smelling material. Patient's white blood cell count this morning is mid 16. Patient is scheduled for surgery with Dr. Asencio with plastics on Friday at 1 PM. Past Medical History Past Medical History (Chronic Problems): Chronic Problems Type 2 diabetes mellitus (Chronic) Hyperlipidemia (Chronic) Hypertension (Chronic) Allergies No Known Allergies Allergy (Verified 02/16/20 10:29) Home Medications: Ambulatory Orders Medication Instructions Recorded Atorvastatin Calcium [Lipitor] 40 mg PO QHS 02/16/20 Dulaglutide [Trulicity] 0.75 mg SQ QWEEK 02/16/20 Ergocalciferol [Vitamin D] 1 cap PO QWEEK 02/16/20 Insulin Glargine,Hum.rec.anlog 14 unit SUBCUT QHS 02/16/20 [Basaglar Kwikpen U-100] Labetalol HCl 100 mg PO BID 02/16/20 Sulfamethoxazole/Trimethoprim 1 ea PO BID 02/16/20 [Sulfamethoxazole-Tmp Ds Tablet] metFORMIN HCl [Glucophage] 1,000 mg PO BID 02/16/20 Surgical History: no surgical history Psychiatric History: No pertinent psych hx 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 Paternal History Items: Diabetes, Heart Disease, Hypertension Review of Systems Constitutional: Denies: Anorexia, Fever HEENT: Denies: Difficulty Swallowing Cardiovascular: Denies: Chest Pain Respiratory: Denies: Shortness of Breath Gastrointestinal: Reports: Abdominal Pain - Left groin left lower abdomen. Denies: Nausea, Vomiting Genitourinary: Denies: Dysuria Musculoskeletal: Denies: Joint Tenderness Skin: Reports: - - Erythema to the left groin, open wound draining purulent material Neurological: Denies: Balance problems Psychiatric: Denies: Anxiety, Depression Hematologic/ Lymphatic: Denies: Easy Bruising, Easy Bleeding - Physical Exam Vitals/I&O's: Vital Signs Temp Pulse Resp BP Pulse Ox 97.5 F L 64 18 143/70 H 95 02/19/20 07:15 02/19/20 05:30 02/19/20 05:30 02/19/20 05:30 02/19/20 05:30 Oxygen Delivery Method Room Air Weight: 325 lb Body Mass Index (BMI) 49.4 Intake and Output for Last 24 Hours 02/17/20 02/18/20 02/19/20 23:59 23:59 23:59 Intake Total 2159.25 / 2159.25 5283.0 / 5283.0 1325 / 1325 Balance 2159.25 / 2159.25 5283.0 / 5283.0 1325 / 1325 General: Alert, Oriented x3, Cooperative, No apparent distress HEENT: Atraumatic Lungs: Normal air movement Cardiovascular: Regular rate Abdomen: Soft, Non-Distended, Obese, Tender - Tender in the left lower abdomen adjacent to the left groin, left groin has open wound about 7 cm x 7 cm has a current tissue plug but with slight pressure will drain purulent material, erythema extends about 8 cm medially and 10 to 15 cm lateral from this open wound., Positive tenderness palpation Skin: - - See abdomen for description of left groin abscess/open wound draining Neurological: Cranial nerves II-XII grossly intact Psych/Mental Status: Normal Affect Microbiology Past 72 Hours 02/16/20 13:15 Blood Culture (Wb) - Right Forearm Blood Culture - Preliminary No growth in 48 hours. 02/16/20 13:20 Blood Culture (Wb) - Right Hand Blood Culture - Preliminary No growth in 48 hours. Laboratory Results 02/18/20 05:20: ESR 72 H 02/18/20 05:20: Hemoglobin A1c 11.7 H 02/18/20 11:34: POC Glucose 233 H 02/18/20 13:06: Sodium 136, Potassium 3.8, Chloride 105, Carbon Dioxide 23.0, Anion Gap 8, BUN 13, Creatinine 0.74, Estim Creat Clear Calc 106.02, Est GFR (MDRD) Af Amer 115, Est GFR (MDRD) Non-Af 95, BUN/Creatinine Ratio 17.7, Glucose 214 H, Calcium 9.1, Magnesium 1.7, Total Bilirubin 0.30, AST 26, ALT 39, Alkaline Phosphatase 83, C-React Prot Ext Range 148.00 H, Total Protein 7.6, Albumin 2.8 L, Globulin 4.8 H, Albumin/Globulin Ratio 0.6 L 02/18/20 16:20: POC Glucose 203 H 02/18/20 21:48: POC Glucose 203 H 02/19/20 06:50: WBC 16.3 H, RBC 4.94, Hgb 14.1, Hct 44.7, MCV 90.5, MCH 28.5, MCHC 31.5 L, RDW Std Deviation 42.9, RDW Coeff of Violeta 13.0, Plt Count 264, MPV 11.8, Immature Gran % (Auto) 0.500, Neut % (Auto) 63.7, Lymph % (Auto) 25.2, [place] % (Auto) 8.8, Eos % (Auto) 1.5, Baso % (Auto) 0.3, Absolute Neuts (auto) 10.4 H, Absolute Lymphs (auto) 4.11, Nucleated RBC % 0 02/19/20 06:50: Sodium 137, Potassium 4.3, Chloride 107, Carbon Dioxide 26.0, Anion Gap 4 L, BUN 9, Creatinine 0.65, Estim Creat Clear Calc 120.70, Est GFR (MDRD) Af Amer 132, Est GFR (MDRD) Non-Af 109, BUN/Creatinine Ratio 13.8, Glucose 208 H, Calcium 9.1, Triglycerides 117, Cholesterol 89, LDL Cholesterol 46, VLDL Cholesterol 23, HDL Cholesterol 20 L 02/19/20 07:59: POC Glucose 215 H Current Medications Hydrocodone Bitart/Acetaminophen ([place] 5mg-325mg) 2 tablet PO Q6H PRN PRN PRN Reason: Pain Score 3-5/10 Last Admin: 02/19/20 07:11 Dose: 2 tablet Documented by: Atorvastatin Calcium (Lipitor) 40 mg PO QHS [facility] Last Admin: 02/18/20 21:50 Dose: 40 mg Documented by: Dextrose (D50w Syringe) 0 gm IV X1 PRN; Protocol PRN Reason: Hypoglycemia Glucagon () 1 mg IM .X1 PRN PRN Reason: Hypoglycemia Hydromorphone HCl (Dilaudid Inj) 0.5 mg IV Q3H PRN PRN PRN Reason: Pain Score 6-10/10 Last Admin: 02/19/20 05:18 Dose: 0.5 mg Documented by: Sodium Chloride () 250 mls @ 15 mls/hr IV .[id number] PRN PRN Reason: Saline Flush Last Infusion: 02/18/20 06:47 Dose: 0 mls/hr Documented by: Sodium Chloride () 250 mls @ 15 mls/hr IV .[id number] PRN PRN Reason: Additional IVPB Infusion Vancomycin IV Pharmacy to Dose (1 ea/ Sodium Chloride) 500 mls @ 250 mls/hr IV PRN PRN; Protocol PRN Reason: Rx to Dose Piperacillin Sod/Tazobactam (Sod 3.375 gm/ Sodium Chloride) 50 mls @ 12.5 mls/hr IV Q8 [facility] Last Admin: 02/19/20 07:50 Dose: 12.5 mls/hr Documented by: Vancomycin HCl 1,250 mg/ (Sodium Chloride) 275 mls @ 167 mls/hr IV Q8H [facility] Last Infusion: 02/19/20 07:24 Dose: Infused Documented by: Ibuprofen (Motrin) 600 mg PO Q6H PRN PRN PRN Reason: Pain Score 1-10/10 Last Admin: 02/18/20 23:47 Dose: 600 mg Documented by: Insulin Glargine (Lantus (Bkc)) 25 units SC QHS [facility] Last Admin: 02/18/20 21:49 Dose: 25 u Documented by: Insulin Human Lispro (Humalog Kwikpen (Bkc)) 0 unit SC TIDAC [facility]; Protocol Last Admin: 02/19/20 08:04 Dose: 6 units Documented by: Insulin Human Lispro (Humalog Kwikpen (Bkc)) 5 unit SC LUNCH [facility] Insulin Human Lispro (Humalog Kwikpen (Bkc)) 5 unit SC BREAKFAST [facility] Insulin Human Lispro (Humalog Kwikpen (Bkc)) 8 unit SC DINNER [facility] Labetalol HCl (Trandate) 100 mg PO BID [facility] Last Admin: 02/18/20 21:51 Dose: 100 mg Documented by: Lidocaine/Epinephrine (Lidocaine 2%/Epi 1:[id number] Mdv) 1 ml INFILT X1 ONE Stop: 02/19/20 08:40 [facility] Last Admin: 02/18/20 16:42 Dose: 1,000 mg Documented by: Nicotine (Nicoderm Cq ([facility])) 21 mg TRANSDERM. DAILY [facility] Last Admin: 02/18/20 10:18 Dose: 21 mg Documented by: Nicotine Polacrilex (Rugby Nicotine ([facility])) 2 mg PO Q2H PRN PRN PRN Reason: Nicotine Craving Last Admin: 02/19/20 05:25 Dose: 2 mg Documented by: Ondansetron HCl (Zofran) 4 mg IV Q8H PRN PRN PRN Reason: NAUSEA/VOMITING Last Admin: 02/17/20 06:53 Dose: 4 mg Documented by: Sodium Chloride () 10 - 40 ml IV UD PRN PRN Reason: SALINE FLUSH Last Admin: 02/19/20 07:14 Dose: 10 ml Documented by: Assessment/Plan 34-year-old female with left groin abscess history of hidradenitis Plan for incision and drainage of this area as it is open and draining and check a culture. Risk benefits were discussed with the patient and she agreed to proceed. Patient is on the schedule for Friday at [address] Asencio for likely excision of this area due to her hidradenitis. Celsa Lyons M.D. Pager: [phone] [facility] [address] [place] [address], [facility], [address] [place] [address] Office: [phone] Inpatient E&M: 49441 Init Hosp L2
[2020-02-19 08:48] VITALS: BP 152/82; PULSE 67; RESP 18; TEMP 36.6; O2SAT 98
[2020-02-19] MEDS: metFORMIN HCl 1,000 MG Tablet 1000 MG PO ×2 (08:51→16:40)
[2020-02-19] MEDS: Labetalol 100 MG Tablet PO (08:53)
--- NOTE | 2020-02-19 09:25 | PCM.OPRPT ---
Report of Operation Date of Procedure: 02/19/20 Pre-Operative Diagnosis: Left groin abscess, hidradenitis Post-Operative Diagnosis: Same Surgery/Procedure Performed:: Incision and drainage of left groin abscess Type of Anesthesia:: Local Special Medications: Patient previously on antibiotics on the floor Zosyn and vancomycin Specimen's removed: Culture of abscess fluid Estimated Blood Loss (mL): <10 cc Description of Procedure: 34-year-old female with a left groin abscess risk benefits were discussed patient she elected to proceed with incision and drainage Description of procedure: The left groin was already draining but did have a plug of tissue, the area was prepped with Betadine. Patient did receive a total of 1 mg of Dilaudid at the beginning of the procedure/during the procedure. The plug of tissue/purulent material was removed and patient had about 20 cc of purulent drainage, the initial wound opening was about 7 mm x 7 mm this was enlarged with a 15 blade scalpel after local anesthesia of 2% lidocaine with epinephrine total of 10 cc to 2-1/2 cm x 2 cm. The cavity did extend medially about 5 cm and laterally 3 cm, loculations were broken up/probed. Wound was copiously irrigated until it is no more purulent material obtained and the drainage was clear. Wound was packed with small Kerlix soaked in saline. This was dressed with an ABD pad. Patient tolerated procedure well. - Complications none
[2020-02-19 12:01] LABS: Bedside Glucose 170 mg/dL (70-110)
[2020-02-19 12:54] LABS: M R Staph aureus DNA By PCR Negative (Negative); Probe Check PASS; Specimen Processing Control PASS; Staph aureus DNA By PCR NEGATIVE (Negative)
--- NOTE | 2020-02-19 13:43 | PCM.PN.HOSP ---
Reason for Visit: left inguinal HS Vitals/I&O's: Vital Signs Temp Pulse Resp BP Pulse Ox 97.8 F 67 18 152/82 H 98 02/19/20 08:48 02/19/20 08:48 02/19/20 08:48 02/19/20 08:48 02/19/20 08:48 Oxygen Delivery Method Room Air Weight: 325 lb 0.017 oz Body Mass Index (BMI) 49.4 Intake and Output for Last 24 Hours 02/17/20 02/18/20 02/19/20 23:59 23:59 23:59 Intake Total 2159.25 / 215.25 5283.0 / 5283.0 1675 / 1675 Balance 2159.25 / 215.25 5283.0 / 5283.0 1675 / 1675 General: Alert, Oriented x3, Cooperative HEENT: Atraumatic, PERRLA, EOMI, Normocephalic Neck: Supple, No JVD, Negative Carotid Bruits Lungs: Clear to auscultation, Normal air movement Cardiovascular: Regular rate, No murmurs Abdomen: Bowel Sounds Present, Soft, Non Tender, Obese Extremities: No edema, Capillary Refill Less than 3 Seconds Skin: - - wound opened this AM, otherwise minimal change Musculoskeletal: No Tenderness to Palpation of Joints or Extremities Neurological: Cranial nerves II-XII grossly intact Psych/Mental Status: Normal Affect, Appropriate Microbiology Past 72 Hours 02/16/20 13:15 Blood Culture (Wb) - Right Forearm Blood Culture - Preliminary No growth in 48 hours. 02/16/20 13:20 Blood Culture (Wb) - Right Hand Blood Culture - Preliminary No growth in 48 hours. Laboratory Results 02/18/20 05:20: Hemoglobin A1c 11.7 H 02/18/20 13:06: Sodium 136, Potassium 3.8, Chloride 105, Carbon Dioxide 23.0, Anion Gap 8, BUN 13, Creatinine 0.74, Estim Creat Clear Calc 106.02, Est GFR (MDRD) Af Amer 115, Est GFR (MDRD) Non-Af 95, BUN/Creatinine Ratio 17.7, Glucose 214 H, Calcium 9.1, Magnesium 1.7, Total Bilirubin 0.30, AST 26, ALT 39, Alkaline Phosphatase 83, C-React Prot Ext Range 148.00 H, Total Protein 7.6, Albumin 2.8 L, Globulin 4.8 H, Albumin/Globulin Ratio 0.6 L 02/18/20 16:20: POC Glucose 203 H 02/18/20 21:48: POC Glucose 203 H 02/19/20 06:50: WBC 16.3 H, RBC 4.94, Hgb 14.1, Hct 44.7, MCV 90.5, MCH 28.5, MCHC 31.5 L, RDW Std Deviation 42.9, RDW Coeff of Violeta 13.0, Plt Count 264, MPV 11.8, Immature Gran % (Auto) 0.500, Neut % (Auto) 63.7, Lymph % (Auto) 25.2, [place] % (Auto) 8.8, Eos % (Auto) 1.5, Baso % (Auto) 0.3, Absolute Neuts (auto) 10.4 H, Absolute Lymphs (auto) 4.11, Nucleated RBC % 0 02/19/20 06:50: Sodium 137, Potassium 4.3, Chloride 107, Carbon Dioxide 26.0, Anion Gap 4 L, BUN 9, Creatinine 0.65, Estim Creat Clear Calc 120.70, Est GFR (MDRD) Af Amer 132, Est GFR (MDRD) Non-Af 109, BUN/Creatinine Ratio 13.8, Glucose 208 H, Calcium 9.1, Triglycerides 117, Cholesterol 89, LDL Cholesterol 46, VLDL Cholesterol 23, HDL Cholesterol 20 L 02/19/20 07:59: POC Glucose 215 H 02/19/20 08:53: S.aureus Protein A PCR NEGATIVE, MRSA (PCR) Negative 02/19/20 11:52: POC Glucose 170 H 02/19/20 13:15: Vancomycin Trough Pending Current Medications Hydrocodone Bitart/Acetaminophen ([place] 5mg-325mg) 2 tablet PO Q6H PRN PRN PRN Reason: Pain Score 3-5/10 Last Admin: 02/19/20 07:11 Dose: 2 tablet Documented by: Atorvastatin Calcium (Lipitor) 40 mg PO QHS [facility] Last Admin: 02/18/20 21:50 Dose: 40 mg Documented by: Dextrose (D50w Syringe) 0 gm IV X1 PRN; Protocol PRN Reason: Hypoglycemia Glucagon () 1 mg IM .X1 PRN PRN Reason: Hypoglycemia Hydromorphone HCl (Dilaudid Inj) 0.5 mg IV Q3H PRN PRN PRN Reason: Pain Score 6-10/10 Last Admin: 02/19/20 08:56 Dose: 0.5 mg Documented by: Sodium Chloride () 250 mls @ 15 mls/hr IV .[id number] PRN PRN Reason: Saline Flush Last Infusion: 02/18/20 06:47 Dose: 0 mls/hr Documented by: Sodium Chloride () 250 mls @ 15 mls/hr IV .[id number] PRN PRN Reason: Additional IVPB Infusion Vancomycin IV Pharmacy to Dose (1 ea/ Sodium Chloride) 500 mls @ 250 mls/hr IV PRN PRN; Protocol PRN Reason: Rx to Dose Piperacillin Sod/Tazobactam (Sod 3.375 gm/ Sodium Chloride) 50 mls @ 100 mls/hr IV Q8 [facility] Last Infusion: 02/19/20 12:15 Dose: Infused Documented by: Vancomycin HCl 1,250 mg/ (Sodium Chloride) 275 mls @ 167 mls/hr IV Q8H [facility] Last Infusion: 02/19/20 07:24 Dose: Infused Documented by: Ibuprofen (Motrin) 600 mg PO Q6H PRN PRN PRN Reason: Pain Score 1-10/10 Last Admin: 02/18/20 23:47 Dose: 600 mg Documented by: Insulin Glargine (Lantus (Bkc)) 25 units SC QHS [facility] Last Admin: 02/18/20 21:49 Dose: 25 u Documented by: Insulin Human Lispro (Humalog Kwikpen (Bkc)) 0 unit SC TIDAC [facility]; Protocol Last Admin: 02/19/20 11:54 Dose: 3 units Documented by: Insulin Human Lispro (Humalog Kwikpen ([facility])) 5 unit SC LUNCH [facility] Last Admin: 02/19/20 11:54 Dose: 5 units Documented by: Insulin Human Lispro (Humalog Kwikpen ([facility])) 5 unit SC BREAKFAST [facility] Last Admin: 02/19/20 08:52 Dose: 5 units Documented by: Insulin Human Lispro (Humalog Kwikpen (B[facility])) 8 unit SC DINNER [facility] Labetalol HCl (Trandate) 100 mg PO BID [facility] Last Admin: 02/19/20 08:53 Dose: 100 mg Documented by: Metformin HCl (Glucophage) 1,000 mg PO BIDCM [facility] Last Admin: 02/19/20 08:51 Dose: 1,000 mg Documented by: Nicotine (Nicoderm Cq ([facility])) 21 mg TRANSDERM. DAILY [facility] Last Admin: 02/19/20 08:52 Dose: 21 mg Documented by: Nicotine Polacrilex (Rugby Nicotine ([facility])) 2 mg PO Q2H PRN PRN PRN Reason: Nicotine Craving Last Admin: 02/19/20 09:04 Dose: 2 mg Documented by: Ondansetron HCl (Zofran) 4 mg IV Q8H PRN PRN PRN Reason: NAUSEA/VOMITING Last Admin: 02/17/20 06:53 Dose: 4 mg Documented by: Sodium Chloride () 10 - 40 ml IV UD PRN PRN Reason: SALINE FLUSH Last Admin: 02/19/20 07:14 Dose: 10 ml Documented by: Venlafaxine HCl (Effexor Xr) 75 mg PO DAILY [facility] Medical Necessity - Tobacco Use Smoking Status: Current some day smoker Tobacco Use: Cigarettes Assessment/Plan 1. L groin cellulitis 2/2 Hydradenitis Suppurativa - Vanc / Zosyn. Gen surgery lanced and drained it this AM. Cx sent. Surgery with Dr. Asencio Friday for further debridement. Minimal improvement in WBC count and pt did have fever 100.8 last night. ESR 72, CRP 148 2. Nicotine abuse - patch, gum. 3. 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 Metformin, Lantus, SSI. Insulin therapy is being adjusted to optimize blood sugar. A1C 11.7. 4. HTN - o/p labetalol continued. 5. HLD - lipitor 6. Depression - effexor started. DVT ppx: early ambulation DC planning: pt go to OR friday for further I/D. This patient was seen by Matthias Torres PA-C under the supervision of Dr. Franz
[2020-02-19] MEDS: Venlafaxine XR 75 MG Capsule PO (14:14)
[2020-02-19 14:23] VITALS: BP 144/72; PULSE 65; RESP 18; TEMP 36.8; O2SAT 98
[2020-02-19 14:30] LABS: Vancomycin, Trough Level 7.4 ug/mL (5.0-15.0)
--- NOTE | 2020-02-19 14:55 | PCM.RX.CS ---
Consult Pharmacy has been consulted to manage selected antiobiotic: Vancomycin Type of Consult: Follow-up Suspected Infection: Skin/Soft tissue Prior Doses of Antibiotics Received/Current Regimen: 1250MG IV GIVEN 02/18 @ 0530 AND 02/17 @ 2135 Labs: Sodium 137 mmol/L (136-145) 02/19/20 06:50 Potassium 4.3 mmol/L (3.5-5.1) 02/19/20 06:50 Chloride 107 mmol/L (98-107) 02/19/20 06:50 Carbon Dioxide 26.0 mmol/L (21.0-32.0) 02/19/20 06:50 Anion Gap 4 (5-15) L 02/19/20 06:50 BUN 9 mg/dL (7-18) 02/19/20 06:50 Creatinine 0.65 mg/dL (0.55-1.02) 02/19/20 06:50 Est GFR (MDRD) Af Amer 132 mL/min (>60) 02/19/20 06:50 Est GFR (MDRD) Non-Af 109 mL/min (>60) 02/19/20 06:50 BUN/Creatinine Ratio 13.8 RATIO (10-20) 02/19/20 06:50 Glucose 208 mg/dL (74-106) H 02/19/20 06:50 Vancomycin Trough 7.4 ug/mL (5.0-15.0) 02/19/20 13:15 Microbiology: Microbiology 02/16/20 13:15 Blood Culture (Wb) - Right Forearm Blood Culture - Preliminary No growth in 48 hours. 02/16/20 13:20 Blood Culture (Wb) - Right Hand Blood Culture - Preliminary No growth in 48 hours. Estimated Creatinine Clearance: 120 Goal Trough: 15-20 mcg/mL Pharmacy Plan for Drug Dosin. 8 hour trough came back subtherapeutic at 7.4 mg/kg (goal 15-20) 2. Will increase dose to 1750mg Q8H starting at 1500 3. Trough ordered prior to 4th dose 4. Pharmacy Service will continue to monitor and adjust dosing as required. Labs to be done on [date and time ordered]: 02/20/2020 @ 1436
[2020-02-19] MEDS: Insulin Lispro 100 UNIT/ML INSULN.PEN 8 UNIT SC (16:41)
[2020-02-19 17:01] LABS: Bedside Glucose 169 mg/dL (70-110)
[2020-02-19] MEDS: Magnesium Oxide 400 MG Tablet 800 MG PO (18:05)
[2020-02-19] MEDS: Lisinopril 5 MG Tablet PO (19:20)
[2020-02-19 21:37] LABS: Microalbumin,Random Urine 47.7 mg/L (NO RANGE EST.); Microalbumin:Creatinine Ratio 49.9 mg/g CRE (<30 mg/g CRE)
[2020-02-19] MEDS: Atorvastatin Calcium 40 MG Tablet PO (21:51)
[2020-02-19 22:25] LABS: Bedside Glucose 175 mg/dL (70-110)
[2020-02-19 22:56] VITALS: BP 158/84; PULSE 54; RESP 18; TEMP 37; O2SAT 97
[2020-02-20] MEDS: Nicotine Polacrilex 2 MG GUM PO ×3 (04:22→19:51)
[2020-02-20] MEDS: HYDROcodone Bitartrate/Apap 5/325 Tablet PO ×2 (04:29→11:33)
[2020-02-20 04:32] VITALS: BP 140/93; PULSE 54; RESP 18; TEMP 36.6; O2SAT 97
[2020-02-20] MEDS: 0.9% Saline Lock 10 ML Syringe IV ×3 (05:12→22:01)
[2020-02-20] MEDS: Enoxaparin 40 MG/0.4 ML Syringe SC (05:18)
[2020-02-20 06:24] LABS: Absolute Lymphocyte Count 3.92 X10^3/uL (0.83-4.51); Absolute Neutrophil Count 7.6 X10^3/uL (2.0-7.7); Basophil# 0.08 X10^3/uL; Basophil% 0.6 % (0-1); Eosinophil# 0.28 X10^3/uL; Eosinophils% 2.2 % (0-5); Hematocrit 43.7 % (37-47); Hemoglobin 13.9 g/dL (12.0-15.0); Lymphocyte # 3.92 X10^3/ul (4.0); Lymphocyte % 30.5 % (19-41); Mean Corp Hgb Conc 31.8 g/dL (32-36); Mean Corpuscular Hgb 28.9 pg (27.0-32.0); Mean Corpuscular Volume 90.9 fL (81-99); Monocyte# 0.91 X10^3/uL; Monocyte% 7.1 % (0-10); NRBC Flagged by Analyzer 0 % (0-5); Neutrophil # 7.59 X10^3/uL (2.7-7.7); Platelet Count 270 K/mm3 (150-450); RBC Distribution Width CV 12.7 % (11.6-14.6); RBC Distribution Width SD 42.5 fl (35.1-43.9); Red Blood Count 4.81 M/mm3 (4.2-5.4); White Blood Count 12.9 K/mm3 (4.4-11.0)
--- NOTE | 2020-02-20 08:54 | PN.SURG_ITS ---
Subjective: Patient states left groin feels much better, white blood count down to 12.9 - Physical Exam Vitals/I&O's: Vital Signs Temp Pulse Resp BP Pulse Ox 97.9 F 54 L 18 140/93 H 97 02/20/20 04:32 02/20/20 04:32 02/20/20 04:32 02/20/20 04:32 02/20/20 04:32 Oxygen Delivery Method Room Air Weight: 325 lb 0.017 oz Body Mass Index (BMI) 49.4 Intake and Output for Last 24 Hours 02/18/20 02/19/20 02/20/20 23:59 23:59 23:59 Intake Total 5283.0 / 5283.0 2400 / 2400 450 / 450 Balance 5283.0 / 5283.0 2400 / 2400 450 / 450 General: Alert, Oriented x3, Cooperative, No apparent distress Abdomen: - - Left groin erythema resolved, still having some purulent drainage on ABD, wet-to-dry dressing, tender to palpation, there is some thinning of the skin medially or the track goes. Microbiology Past 72 Hours 02/19/20 13:45 Mucosa - Nasopharyngeal Coronavirus COVID-19 PCR - Final 02/16/20 13:15 Blood Culture (Wb) - Right Forearm Blood Culture - Preliminary No growth in 48 hours. 02/16/20 13:20 Blood Culture (Wb) - Right Hand Blood Culture - Preliminary No growth in 48 hours. Laboratory Results 02/19/20 08:53: S.aureus Protein A PCR NEGATIVE, MRSA (PCR) Negative 02/19/20 11:52: POC Glucose 170 H 02/19/20 13:15: Vancomycin Trough 7.4 02/19/20 16:39: POC Glucose 169 H 02/19/20 21:02: Ur Random Microalbumin 47.7, Urine Creatinine 95.60, Microalb/Creat Ratio 49.9 H 02/19/20 21:49: POC Glucose 175 H 02/20/20 05:30: WBC 12.9 H, RBC 4.81, Hgb 13.9, Hct 43.7, MCV 90.9, MCH 28.9, MCHC 31.8 L, RDW Std Deviation 42.5, RDW Coeff of Violeta 12.7, Plt Count 270, MPV 12.0, Immature Gran % (Auto) 0.600, Neut % (Auto) 59.0, Lymph % (Auto) 30.5, [place] % (Auto) 7.1, Eos % (Auto) 2.2, Baso % (Auto) 0.6, Absolute Neuts (auto) 7.6, Absolute Lymphs (auto) 3.92, Nucleated RBC % 0 Current Medications Hydrocodone Bitart/Acetaminophen ([place] 5mg-325mg) 2 tablet PO Q6H PRN PRN PRN Reason: Pain Score 3-5/10 Last Admin: 02/20/20 04:29 Dose: 2 tablet Documented by: Atorvastatin Calcium (Lipitor) 40 mg PO QHS [facility] Last Admin: 02/19/20 21:51 Dose: 40 mg Documented by: Dextrose (D50w Syringe) 0 gm IV X1 PRN; Protocol PRN Reason: Hypoglycemia Enoxaparin Sodium (Lovenox) 40 mg SC DAILY@0600 [facility] Last Admin: 02/20/20 05:18 Dose: 40 mg Documented by: Glucagon () 1 mg IM .X1 PRN PRN Reason: Hypoglycemia Hydromorphone HCl (Dilaudid Inj) 0.5 mg IV Q3H PRN PRN PRN Reason: Pain Score 6-10/10 Last Admin: 02/19/20 18:05 Dose: 0.5 mg Documented by: Sodium Chloride () 250 mls @ 15 mls/hr IV .[id number] PRN PRN Reason: Saline Flush Last Infusion: 02/18/20 06:47 Dose: 0 mls/hr Documented by: Sodium Chloride () 250 mls @ 15 mls/hr IV .[id number] PRN PRN Reason: Additional IVPB Infusion Piperacillin Sod/Tazobactam (Sod 3.375 gm/ Sodium Chloride) 50 mls @ 12.5 mls/hr IV Q8 [facility] Last Admin: 02/20/20 05:12 Dose: 12.5 mls/hr Documented by: Insulin Glargine (Lantus (Bkc)) 27 units SC QHS [facility] Last Admin: 02/19/20 21:51 Dose: 27 u Documented by: Insulin Human Lispro (Humalog Kwikpen (Bk)) 0 unit SC TIDAC [facility]; Protocol Last Admin: 02/19/20 16:40 Dose: 3 units Documented by: Insulin Human Lispro (Humalog Kwikpen (Bkc)) 5 unit SC LUNCH [facility] Last Admin: 02/19/20 11:54 Dose: 5 units Documented by: Insulin Human Lispro (Humalog Kwikpen (Bkc)) 5 unit SC BREAKFAST [facility] Last Admin: 02/19/20 08:52 Dose: 5 units Documented by: Insulin Human Lispro (Humalog Kwikpen (Bk)) 8 unit SC DINNER [facility] Last Admin: 02/19/20 16:41 Dose: 8 units Documented by: Lisinopril (Zestril) 5 mg PO DAILY [facility] Metformin HCl (Glucophage) 1,000 mg PO BIDCM [facility] Last Admin: 02/19/20 16:40 Dose: 1,000 mg Documented by: Nicotine (Nicoderm Cq ([facility])) 21 mg TRANSDERM. DAILY [facility] Last Admin: 02/19/20 08:52 Dose: 21 mg Documented by: Nicotine Polacrilex ([place] Nicotine ([facility])) 2 mg PO Q2H PRN PRN PRN Reason: Nicotine Craving Last Admin: 02/20/20 04:22 Dose: 2 mg Documented by: Ondansetron HCl (Zofran) 4 mg IV Q8H PRN PRN PRN Reason: NAUSEA/VOMITING Last Admin: 02/17/20 06:53 Dose: 4 mg Documented by: Oxycodone HCl (Oxyir) 5 mg PO Q6H PRN PRN PRN Reason: Pain Score 6-10/10 Sodium Chloride () 10 - 40 ml IV UD PRN PRN Reason: SALINE FLUSH Last Admin: 02/20/20 05:12 Dose: 20 ml Documented by: Venlafaxine HCl (Effexor Xr) 75 mg PO DAILY [facility] Last Admin: 02/19/20 14:14 Dose: 75 mg Documented by: Medical Necessity - Tobacco Use Smoking Status: Current some day smoker Tobacco Use: Cigarettes Assessment/Plan 34-year-old female with left groin abscess history of hidradenitis Patient's erythema has resolved, still draining some purulent material, white blood cell count improved continue antibiotics, culture pending. Likely patient will still need wide excision by Dr. Asencio on Friday as her multiple tracks as part of the cavity. Celsa Lyons M.D. Pager: [phone] [facility] [address] [place] [address], Outpatient [place], [address] [place] [address] Office: [phone] Inpatient E&M: 50699 Subs Hosp L1
[2020-02-20 09:03] VITALS: BP 141/53; PULSE 54; RESP 16; TEMP 36.6; O2SAT 98
[2020-02-20] MEDS: Lisinopril 5 MG Tablet PO (09:10)
[2020-02-20] MEDS: Insulin Lispro 100 UNIT/ML INSULN.PEN SC ×4 (09:11→11:28)
[2020-02-20] MEDS: Venlafaxine XR 75 MG Capsule PO (09:11)
[2020-02-20] MEDS: metFORMIN HCl 1,000 MG Tablet 1000 MG PO ×2 (09:11→17:11)
[2020-02-20 09:21] LABS: Bedside Glucose 256 mg/dL (70-110)
[2020-02-20 11:40] LABS: Bedside Glucose 157 mg/dL (70-110)
--- NOTE | 2020-02-20 13:07 | PN_ITS ---
Reason for Visit: left inguinal HS Subjective: pt reports that she feels much improved today. She has significantly less groin pain. No issues overnight. Ambulating without issues. No fever or chills. No cough/SOB. Pt agreeable to OR tomorrow if necessary. Vitals/I&O's: Vital Signs Temp Pulse Resp BP Pulse Ox 97.8 F 54 L 16 141/53 H 98 02/20/20 09:03 02/20/20 09:03 02/20/20 09:03 02/20/20 09:03 02/20/20 09:03 Oxygen Delivery Method Room Air Weight: 325 lb 0.017 oz Body Mass Index (BMI) 49.4 Intake and Output for Last 24 Hours 02/18/20 02/19/20 02/20/20 23:59 23:59 23:59 Intake Total 5283.0 / 5283.0 2400 / 2400 1500 / 1500 Balance 5283.0 / 5283.0 2400 / 2400 1500 / 1500 General: Alert, Oriented x3, Cooperative HEENT: Atraumatic, PERRLA, EOMI, Normocephalic Neck: Supple, No JVD, Negative Carotid Bruits Lungs: Clear to auscultation, Normal air movement Cardiovascular: Regular rate, No murmurs Abdomen: Bowel Sounds Present, Soft, Non Tender, Obese Extremities: No edema, Capillary Refill Less than 3 Seconds Skin: - - erythema improved. tenderness improved. Musculoskeletal: No Tenderness to Palpation of Joints or Extremities Neurological: Cranial nerves II-XII grossly intact Psych/Mental Status: Normal Affect, Appropriate, Alert and oriented to time, place, person, mood and affect Microbiology Past 72 Hours 02/19/20 08:53 Wound - Abdominal Wound Culture - Preliminary No growth-Final to follow 02/19/20 13:45 Mucosa - Nasopharyngeal Coronavirus COVID-19 PCR - Final 02/16/20 13:15 Blood Culture (Wb) - Right Forearm Blood Culture - P reliminary No growth in 48 hours. 02/16/20 13:20 Blood Culture (Wb) - Right Hand Blood Culture - Preliminary No growth in 48 hours. Laboratory Results 02/19/20 13:15: Vancomycin Trough 7.4 02/19/20 16:39: POC Glucose 169 H 02/19/20 21:02: Ur Random Microalbumin 47.7, Urine Creatinine 95.60, Microalb/Creat Ratio 49.9 H 02/19/20 21:49: POC Glucose 175 H 02/20/20 05:30: WBC 12.9 H, RBC 4.81, Hgb 13.9, Hct 43.7, MCV 90.9, MCH 28.9, MCHC 31.8 L, RDW Std Deviation 42.5, RDW Coeff of Violeta 12.7, Plt Count 270, MPV 12.0, Immature Gran % (Auto) 0.600, Neut % (Auto) 59.0, Lymph % (Auto) 30.5, [place] % (Auto) 7.1, Eos % (Auto) 2.2, Baso % (Auto) 0.6, Absolute Neuts (auto) 7.6, Absolute Lymphs (auto) 3.92, Nucleated RBC % 0 02/20/20 09:02: POC Glucose 256 H 02/20/20 11:27: POC Glucose 157 H Current Medications Hydrocodone Bitart/Acetaminophen ([place] 5mg-325mg) 2 tablet PO Q6H PRN PRN PRN Reason: Pain Score 3-5/10 Last Admin: 02/20/20 11:33 Dose: 2 tablet Documented by: Atorvastatin Calcium (Lipitor) 40 mg PO QHS [facility] Last Admin: 02/19/20 21:51 Dose: 40 mg Documented by: Dextrose (D50w Syringe) 0 gm IV X1 PRN; Protocol PRN Reason: Hypoglycemia Enoxaparin Sodium (Lovenox) 40 mg SC DAILY@0600 [facility] Last Admin: 02/20/20 05:18 Dose: 40 mg Documented by: Glucagon () 1 mg IM .X1 PRN PRN Reason: Hypoglycemia Hydromorphone HCl (Dilaudid Inj) 0.5 mg IV Q3H PRN PRN PRN Reason: Pain Score 6-10/10 Last Admin: 02/19/20 18:05 Dose: 0.5 mg Documented by: Sodium Chloride () 250 mls @ 15 mls/hr IV .[id number] PRN PRN Reason: Saline Flush Last Infusion: 02/18/20 06:47 Dose: 0 mls/hr Documented by: Sodium Chloride () 250 mls @ 15 mls/hr IV .[id number] PRN PRN Reason: Additional IVPB Infusion Piperacillin Sod/Tazobactam (Sod 3.375 gm/ Sodium Chloride) 50 mls @ 12.5 mls/hr IV Q8 [facility] Last Infusion: 02/20/20 09:15 Dose: Infused Documented by: Insulin Glargine (Lantus ([facility])) 27 units SC QHS [facility] Last Admin: 02/19/20 21:51 Dose: 27 u Documented by: Insulin Human Lispro (Humalog Kwikpen ([facility])) 0 unit SC TIDAC [facility]; Protocol Last Admin: 02/20/20 11:28 Dose: 3 units Documented by: Insulin Human Lispro (Humalog Kwikpen ([facility])) 5 unit SC LUNCH [facility] Last Admin: 02/20/20 11:27 Dose: 5 units Documented by: Insulin Human Lispro (Humalog Kwikpen ([facility])) 5 unit SC BREAKFAST [facility] Last Admin: 02/20/20 09:11 Dose: 5 units Documented by: Insulin Human Lispro (Humalog Kwikpen ([facility])) 8 unit SC DINNER [facility] Last Admin: 02/19/20 16:41 Dose: 8 units Documented by: Lisinopril (Zestril) 5 mg PO DAILY [facility] Last Admin: 02/20/20 09:10 Dose: 5 mg Documented by: Metformin HCl (Glucophage) 1,000 mg PO BIDCM [facility] Last Admin: 02/20/20 09:11 Dose: 1,000 mg Documented by: Nicotine (Nicoderm Cq ([facility])) 21 mg TRANSDERM. DAILY [facility] Last Admin: 02/20/20 09:11 Dose: 21 mg Documented by: Nicotine Polacrilex ([place]ug[place] Nicotine ([facility])) 2 mg PO Q2H PRN PRN PRN Reason: Nicotine Craving Last Admin: 02/20/20 04:22 Dose: 2 mg Documented by: Ondansetron HCl (Zofran) 4 mg IV Q8H PRN PRN PRN Reason: NAUSEA/VOMITING Last Admin: 02/17/20 06:53 Dose: 4 mg Documented by: Oxycodone HCl (Oxyir) 5 mg PO Q6H PRN PRN PRN Reason: Pain Score 6-10/10 Sodium Chloride () 10 - 40 ml IV UD PRN PRN Reason: SALINE FLUSH Last Admin: 02/20/20 05:12 Dose: 20 ml Documented by: Venlafaxine HCl (Effexor Xr) 75 mg PO DAILY [facility] Last Admin: 02/20/20 09:11 Dose: 75 mg Documented by: Medical Necessity - Tobacco Use Smoking Status: Current some day smoker Tobacco Use: Cigarettes Assessment/Plan 1. L groin cellulitis 2/2 Hydradenitis Suppurativa - Vanc / Zosyn. Gen surgery lanced and drained it yesterday. Cx sent - no growth, blood cultures neg. Surgery with Dr. Asencio Friday for further debridement. Fever resolved. WBC markedly improved. 2. Nicotine abuse - patch, gum. 3. 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 Metformin, Lantus, SSI. Insulin therapy is being adjusted to optimize blood sugar. A1C 11.7. 4. HTN - lebatolol stopped, lisinopril started. likely can go up to 10 but will wait to see what her pressure does with surgery tomorrow. 5. HLD - lipitor 6. Depression - effexor started. DVT ppx: early ambulation DC planning: pt go to OR friday for further I/D. This patient was seen by Matthias Torres PA-C under the supervision of Dr. Franz
[2020-02-20 13:55] VITALS: BP 145/91; PULSE 69; RESP 16; TEMP 36.4; O2SAT 98
[2020-02-20 16:25] LABS: Bedside Glucose 107 mg/dL (70-110)
[2020-02-20] MEDS: Insulin Lispro 100 UNIT/ML INSULN.PEN 8 UNIT SC (17:10)
[2020-02-20] MEDS: oxyCODONE 5 MG Tablet PO (18:25)
[2020-02-20 20:00] VITALS: BP 135/65; PULSE 61; RESP 20; TEMP 36.8; O2SAT 99
[2020-02-20] MEDS: Atorvastatin Calcium 40 MG Tablet PO (22:00)
[2020-02-20 22:10] LABS: Bedside Glucose 131 mg/dL (70-110)
[2020-02-21] VITALS (13 sets, daily range): BP systolic 137–172; BP diastolic 75–101; PULSE 46–67; RESP 16–18; TEMP 36.4–36.8; O2SAT 92–100; BMI 49.4
[2020-02-21] MEDS: oxyCODONE 5 MG Tablet PO ×2 (03:11→20:01)
--- NOTE | 2020-02-21 05:00 | EKG12_ITS ---
Test Reason : AM EKG Blood Pressure : / mmHG Vent. Rate : 055 BPM Atrial Rate : 055 BPM P-R Int : 170 ms QRS Dur : 106 ms QT Int : 458 ms P-R-T Axes : 027 053 049 degrees QTc Int : 438 ms Sinus bradycardia Otherwise normal ECG No previous ECGs available Confirmed by INGA WORTHINGTON, ROXANNA ([id number]), editorial manager GANGA MA ([id number]) on 02/22/2020 1:50:04 PM Referred By: RONDA Confirmed By:ROXANNA XIONG MD
[2020-02-21 06:05] LABS: Absolute Lymphocyte Count 4.04 X10^3/uL (0.83-4.51); Absolute Neutrophil Count 6.8 X10^3/uL (2.0-7.7); Basophil# 0.06 X10^3/uL; Basophil% 0.5 % (0-1); Eosinophil# 0.34 X10^3/uL; Eosinophils% 2.8 % (0-5); Hematocrit 44.5 % (37-47); Hemoglobin 14.6 g/dL (12.0-15.0); Lymphocyte # 4.04 X10^3/ul (4.0); Lymphocyte % 33.3 % (19-41); Mean Corp Hgb Conc 32.8 g/dL (32-36); Mean Corpuscular Volume 88.5 fL (81-99); Mean Platelet Vol. 11.1 fl (6.2-12.0); Monocyte# 0.81 X10^3/uL; Monocyte% 6.7 % (0-10); NRBC Flagged by Analyzer 0 % (0-5); Neutrophil % 56.1 % (47-70); Platelet Count 334 K/mm3 (150-450); RBC Distribution Width CV 12.5 % (11.6-14.6); RBC Distribution Width SD 40.4 fl (35.1-43.9); Red Blood Count 5.03 M/mm3 (4.2-5.4); White Blood Count 12.1 K/mm3 (4.4-11.0)
[2020-02-21] MEDS: Nicotine Polacrilex 2 MG GUM PO ×3 (06:28→22:18)
[2020-02-21 06:35] LABS: Anion Gap 5 (5-15); BUN 9 mg/dL (7-18); BUN/Creat Ratio 13.7 RATIO (10-20); Calcium,Total 9.3 mg/dL (8.5-10.1); Chloride 101 mmol/L (98-107); Creatinine, Serum 0.66 mg/dL (0.55-1.02); EST Glomerular Filtration Rate 108 mL/min (>60); Est Glom Filt Rate - Afr Amer 130 mL/min (>60); Estimated Creatinine Clearance 118.87 ml/min; Glucose 143 mg/dL (74-106); Potassium 3.8 mmol/L (3.5-5.1); Sodium Level 137 mmol/L (136-145)
[2020-02-21 07:01] LABS: Bedside Glucose 137 mg/dL (70-110)
[2020-02-21 07:43] LABS: Internal QC Validated? YES +Cl - CLEAR BKGD
[2020-02-21 07:45] LABS: Pregnancy, Urine Negative Negative
--- NOTE | 2020-02-21 09:12 | NURSING ---
Pt resting in bed with eyes closed snoring. dressing to the left groin had been changed at 6am by sewing machines salesperson RN. pt being picked up for surgery at noon so will leave dressing in place. pt will most likely get a wound VAC post op.
--- NOTE | 2020-02-21 10:45 | NURSING ---
AM MEDS NOT GIVEN DUE TO PT NPO FOR OR TODAY
--- NOTE | 2020-02-21 11:16 | CON.PCM_ITS ---
Reason for Consult Date of Consultation: 02/21/20 Reason for Consultation: Draining hidradenitis abscess left lateral abdominal wall skin crease with extension into the inguinal area. REFERRING PHYSICIAN: Dr. Franz. ATTENDANT COIN OPERATED LAUNDRY: Dr. Asencio. History of Present Illness: The patient is a 34 year old F who was admitted because of a worsening hidradenits in her left groin/abdomen with increasing redness, firmness and pain. She had fever and chills at home. She has a history of hidradenitis suppurativa requiring abscess drainage in the past. Her WBC on admission was 19.7 and it has decreased to 12.1. She was started on Vancomycin and Zosyn. CT showed small inguinal lymph nodes bilaterally. There is a 6.6 x 12.8 cm area of the subcutaneous edematous changes overlying the left groin. This is suggestive of cellulitis. No tracey abscess is seen. On 02/19/20, there was some purulent drainage noted. Dr. Lyons from General Surgery performed an I&D procedure with improvement in her symptomatology. Saline wet to dry dressing changes were started. Wound culture thus far is negative. Her MRSA DNA by PCR was negative. The Vancomycin was stopped and she continues on Zosyn. Patient has diabetes mellitus and her HgbA1c at this admission was 11.7. I was asked to evaluate this patient for surgical options for treatment. Past Medical History Past Medical History (Chronic Problems): Chronic Problems Abdominal panniculus, symptomatic (Chronic) Smoker (Chronic) Obesity (Chronic) Hidradenitis (Chronic) Type 2 diabetes mellitus (Chronic) Hyperlipidemia (Chronic) Hypertension (Chronic) Allergies No Known Allergies Allergy (Verified 02/16/20 10:29) Home Medications: Ambulatory Orders Medication Instructions Recorded Atorvastatin Calcium [Lipitor] 40 mg PO QHS 02/16/20 Dulaglutide [Trulicity] 0.75 mg SQ QWEEK 02/16/20 Ergocalciferol [Vitamin D] 1 cap PO QWEEK 02/16/20 Insulin Glargine,Hum.rec.anlog 14 unit SUBCUT QHS 02/16/20 [Basaglar Kwikpen U-100] Labetalol HCl 100 mg PO BID 02/16/20 Sulfamethoxazole/Trimethoprim 1 ea PO BID 02/16/20 [Sulfamethoxazole-Tmp Ds Tablet] metFORMIN HCl [Glucophage] 1,000 mg PO BID 02/16/20 Surgical History: no surgical history Psychiatric History: No pertinent psych hx 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 Paternal History Items: Diabetes, Heart Disease, Hypertension Review of Systems Comment: Constitutional: Reports: Chills, Fever. Denies: Weight Change. HEENT: Denies: Head Aches, Sinus Congestion, Sinus Drainage. Cardiovascular: Denies: Chest Pain, Palpitations. Respiratory: Denies: Cough, Shortness of breath at rest, Sputum production. Gastrointestinal: Denies: Abdominal Pain, Nausea, Vomiting. Genitourinary: Denies: Dysuria. Musculoskeletal: Denies: Joint Pain, Joint Tenderness. Skin: Reports: - - Left groin/abdomen redness, firmness, pain. Neurological: Denies: Numbness, Tingling, Focal weakness. Psychiatric: Denies: Anxiety, Depression, Homicidal Ideations, Suicidal Ideations. Hematologic/ Lymphatic: Denies: Easy Bruising, Easy Bleeding Patient Problems: Active and Suspected Problems Panniculitis (Acute) Necrotizing soft tissue infection (Acute) Abdominal wall abscess (Acute) - Physical Exam Vitals/I&O's: General: Alert, Oriented x3, Cooperative HEENT: PERRLA, EOMI. Neck: Supple, Nontender. No cervical adenopathy. Lungs: Clear to auscultation. Cardiovascular: Regular rate. Abdomen: Soft, Non-Distended, Obese. In the left lateral abdominal wall skin crease is a draining hidradenitis abscess wound. A lot of tunnelling and undermining noted toward the inguinal area. Redness and induration has improved. Tenderness to palpation. Extremities: No clubbing, No cyanosis, No edema, Capillary Refill Less than 3 Seconds. Neurological: Cranial nerves II-XII grossly intact Psych/Mental Status: Normal Affect, Appropriate Vital Signs Temp Pulse Resp BP Pulse Ox 97.8 F 46 L 18 169/101 H 97 02/21/20 09:30 02/21/20 09:30 02/21/20 09:30 02/21/20 09:30 02/21/20 09:30 Oxygen Delivery Method Room Air Weight: 325 lb 0.017 oz Body Mass Index (BMI) 49.4 Intake and Output for Last 24 Hours 02/19/20 02/20/20 02/21/20 23:59 23:59 23:59 Intake Total 2400 / 2400 2550 / 2550 400 / 400 Balance 2400 / 2400 2550 / 2550 400 / 400 Microbiology Past 72 Hours 02/19/20 08:53 Wound - Abdominal Gram Stain - Final 02/19/20 08:53 Wound - Abdominal Wound Culture - Preliminary No growth-Final to follow 02/19/20 13:45 Mucosa - Nasopharyngeal Coronavirus COVID-19 PCR - Final 02/16/20 13:15 Blood Culture (Wb) - Right Forearm Blood Culture - Preliminary No growth in 48 hours. 02/16/20 13:20 Blood Culture (Wb) - Right Hand Blood Culture - Preliminary No growth in 48 hours. Laboratory Results 02/20/20 11:27: POC Glucose 157 H 02/20/20 16:19: POC Glucose 107 02/20/20 20:08: Urine Test Negative 02/20/20 22:04: POC Glucose 131 H 02/21/20 05:35: WBC 12.1 H, RBC 5.03, Hgb 14.6, Hct 44.5, MCV 88.5, MCH 29.0, MCHC 32.8, RDW Std Deviation 40.4, RDW Coeff of Violeta 12.5, Plt Count 334, MPV 11.1, Immature Gran % (Auto) 0.600, Neut % (Auto) 56.1, Lymph % (Auto) 33.3, [place] % (Auto) 6.7, Eos % (Auto) 2.8, Baso % (Auto) 0.5, Absolute Neuts (auto) 6.8, Absolute Lymphs (auto) 4.04, Nucleated RBC % 0 02/21/20 05:35: Sodium 137, Potassium 3.8, Chloride 101, Carbon Dioxide 31.0, Anion Gap 5, BUN 9, Creatinine 0.66, Estim Creat Clear Calc 118.87, Est GFR (MDRD) Af Amer 130, Est GFR (MDRD) Non-Af 108, BUN/Creatinine Ratio 13.7, Glucose 143 H, Calcium 9.3 02/21/20 06:54: POC Glucose 137 H Current Medications Acetaminophen (Tylenol) 650 mg PO Q6H PRN PRN PRN Reason: Pain or Fever Atorvastatin Calcium (Lipitor) 40 mg PO QHS COUNT INCLUDES THE [facility] Last Admin: 02/20/20 22:00 Dose: 40 mg Documented by: Dextrose (D50w Syringe) 0 gm IV X1 PRN; Protocol PRN Reason: Hypoglycemia Enoxaparin Sodium (Lovenox) 40 mg SC DAILY@0600 COUNT INCLUDES THE [facility] Last Admin: 02/21/20 06:13 Dose: Not Given Documented by: Glucagon () 1 mg IM .X1 PRN PRN Reason: Hypoglycemia Sodium Chloride () 250 mls @ 15 mls/hr IV .[id number] PRN PRN Reason: Saline Flush Last Infusion: 02/18/20 06:47 Dose: 0 mls/hr Documented by: Sodium Chloride () 250 mls @ 15 mls/hr IV .[id number] PRN PRN Reason: Additional IVPB Infusion Piperacillin Sod/Tazobactam (Sod 3.375 gm/ Sodium Chloride) 50 mls @ 12.5 mls/hr IV Q8 COUNT INCLUDES THE [facility] Last Infusion: 02/21/20 10:13 Dose: Infused Documented by: Insulin Glargine (Lantus (Bkc)) 28 units SC QHS COUNT INCLUDES THE [facility] Last Admin: 02/20/20 22:05 Dose: Not Given Documented by: Insulin Human Lispro (Humalog Kwikpen (Bkc)) 0 unit SC TIDAC COUNT INCLUDES THE [facility]; Protocol Last Admin: 02/21/20 06:55 Dose: Not Given Documented by: Insulin Human Lispro (Humalog Kwikpen (Bkc)) 5 unit SC LUNCH COUNT INCLUDES THE [facility] Last Admin: 02/20/20 11:27 Dose: 5 units Documented by: Insulin Human Lispro (Humalog Kwikpen (Bkc)) 5 unit SC BREAKFAST COUNT INCLUDES THE [facility] Last Admin: 02/21/20 10:25 Dose: Not Given Documented by: Insulin Human Lispro (Humalog Kwikpen (Bkc)) 8 unit SC DINNER COUNT INCLUDES THE [facility] Last Admin: 02/20/20 17:10 Dose: 8 units Documented by: Lisinopril (Zestril) 5 mg PO DAILY COUNT INCLUDES THE [facility] Last Admin: 02/20/20 09:10 Dose: 5 mg Documented by: Metformin HCl (Glucophage) 1,000 mg PO BIDCM COUNT INCLUDES THE [facility] Last Admin: 02/21/20 10:08 Dose: Not Given Documented by: Nicotine (Nicoderm Cq (Pbkc)) 21 mg TRANSDERM. DAILY COUNT INCLUDES THE [facility] Last Admin: 02/20/20 09:11 Dose: 21 mg Documented by: Nicotine Polacrilex (Rugby Nicotine (Bkc)) 2 mg PO Q2H PRN PRN PRN Reason: Nicotine Craving Last Admin: 02/21/20 06:28 Dose: 2 mg Documented by: Ondansetron HCl (Zofran) 4 mg IV Q8H PRN PRN PRN Reason: NAUSEA/VOMITING Last Admin: 02/17/20 06:53 Dose: 4 mg Documented by: Oxycodone HCl (Oxyir) 5 - 10 mg PO Q6H PRN PRN PRN Reason: Pain Score 6-10/10 Last Admin: 02/21/20 03:11 Dose: 5 mg Documented by: Sodium Chloride () 10 - 40 ml IV UD PRN PRN Reason: SALINE FLUSH Last Admin: 02/20/20 22:01 Dose: 10 ml Documented by: Venlafaxine HCl (Effexor Xr) 75 mg PO DAILY COUNT INCLUDES THE [facility] Last Admin: 02/20/20 09:11 Dose: 75 mg Documented by: Assessment/Plan All Active Problems Panniculitis (Acute) Necrotizing soft tissue infection (Acute) Abdominal wall abscess (Acute) 1. Draining hidradenitis abscess left lateral abdominal wall skin crease with extension into inguinal area. 2. Necrotizing soft tissue infection. 3. Hidradenitis. 4. Diabetes mellitus. 5. Obesity. 6. Smoker. 7. s/p I&D of hidradenitis abscess. 8. Abdominal panniculus with panniculitis. Continue Zosyn antibiotics. The wound culture is negative thus far. At present, getting saline wet to dry dressing changes to the draining hidradenitis abscess wound left lateral abdominal wall skin crease. Patient needs wider excision of this draining hidradenitis abscess including surrounding sinus tracts with debridement of skin, subcutaneous tissue, and fascia for necrotizing soft tissue infection. Any extension into the inguinal area and/or vulval area will be excised as well. A panniculectomy may be needed. The wound will be left open and wound care started with the VAC. Tissue that is removed at the time of surgery will be sent to Pathology for analysis to rule out carcinoma and to Microbiology for culture. A positive culture will necessitate antibiotic therapy. Patient is aware the wound will be left open initially and it may be large. She voices understanding. After discharge, will followup at the [facility]. If there is a plateau in the healing process, can then proceed with delayed closure with skin grafting. However, before proceeding with an elective skin graft in the future, her HgbA1c needs to be less than 8. At present it is 11.7. Anticipate increased metabolic demands from the infection and surgery. Will check a Prealbumin. Encourage nutritional supplementation with protein to help the healing process. Surgery will be done urgently today under general anesthesia. The patient is at risk for developing necrotizing infection that may extend to the fascia and muscle. Patient was informed of the risks and complications of the procedure including alternatives to surgery. These were discussed with the patient personally. Patient voices understanding and wishes to proceed. Encouraged patient to stop smoking as it may have deleterious effects on wound healing. Procedure Criteria Procedure Type: Essential Procedure Essential: Yes Criteria Statement: On 12/07/2019 the [facility] [place] [facility] Health ([facility]) Public Order signed by [facility] Director Aaliyah Verma M.D., regarding the Management of Non-Essential Surgeries and Procedures for the purpose of preserving Personal Protective Equipment (PPE) and critical hospital capacity and resources within [place] went into effect as of 12/08/2019 at 5:00PM. According to the [facility] Public Order: This action will remain in full force and effect until the State of Emergency declared by the Governor no longer exists or the Director of the [facility] rescinds or modifies this Order. This [facility] order stated all non-essential or elective surgeries and procedures that utilize PPE should be delayed unless there is undue risk to the current or future health of a patient. After reviewing the aforementioned [facility] Public Order and the patient's clinical case, I have determined that the scheduled procedure meets the criteria to go forward. Risk to Patient if Procedure Delayed: Risk of rapidly worsening to severe symptoms if delayed Inpatient E&M: 54401 Init Hosp L3 - -57 Modifier ICD-10 - L02.211, L73.2, M79.89, E11.9, E66.9, E65, M79.3, F17.200
[2020-02-21] MEDS: Lisinopril 5 MG Tablet PO (11:27)
--- NOTE | 2020-02-21 11:28 | NURSING ---
PT BP 162/101 - DR HOWARD NOTIFIED, ORDERED TO GIVE LISINOPRIL WITH SIP OF H2O
[2020-02-21 11:45] LABS: Bedside Glucose 137 mg/dL (70-110)
[2020-02-21] MEDS: Lactated Ringers 1,000 ML 100 ML IV (12:15)
--- NOTE | 2020-02-21 13:00 | HID_PTH ---
PATIENT: ROSALINO BRUSH LOC: MS3 U#:[id number] AGE/SX: 34/F ROOM: [facility] RE02/18/[address]: Dr. Jr Krishna MD : [id number] BED: 1 DIS: 02/22/2020 SPEC #: [id number] RECD: 02/22/20 07:25 STATUS: SERGEY REQ #: [id number] VICENTA: 02/21/20 13:[address]: Gibson Asencio DEPT: SURGICAL PATHOLOGY RECD BY: Guillermo Gonzalez ENTERED: 02/22/20 09:36 SP TYPE: Hidradenit OTHR DR: MD Dr. Jeff Bolton DO Dr. Prakash Chand, MD Dr. Tamera Robotham, MD Tissues: Abdomen, NOS Procedures: Special Stain Group I Surgery Specimen Level III AFB Stain (control) GMS Stain (control) HEADER OPERATION: Excisional debridement skin, subcutaneous tissue and fascia PRE-OP DIAGNOSIS: Draining hidradenitis abscess left lateral abdominal wall skin crease with extension into inguinal area TISSUE SUBMITTED: Left lateral abdominal wall skin crease / left inguinal area tissue MICROSCOPIC DIAGNOSIS Left lateral abdominal wall skin crease/left inguinal area tissue, debridement: A piece of skin with underlying tissue with ulceration, acute and chronic inflammation and abscess formation. Special stains for acid fast bacilli and fungi are negative for organisms; matched controls are appropriate. SJ:joselin 02/23/20 MICROSCOPIC DESCRIPTION Slides are reviewed. GROSS DESCRIPTION Received in fixative is one container labeled with the patient's name and designated skin and soft tissue of left lateral abdominal wall/inguinal region. The specimen consists of an irregular fragment of pink-frost skin with attached yellow fatty tissue measuring 19 x 13 cm and a depth of excision measuring 5 cm. The cutaneous surface displays a linear scar measuring 16.8 cm in length. Two areas within the scar show ulceration. The smaller ulcerated area measures 1.5 cm in greatest dimension. The larger ulcer measures 3 x 1.5 cm and has a depth of 2 cm. No cutaneous mass lesions are identified. Serial sections of the remainder of the tissue do not reveal mass lesions. Waterproof Bag Cutting Machine Operator sections from both ulcerated areas are submitted in two cassettes as follows: 1 - larger ulcerated area, 2 - smaller ulcerated area. / AM:joselin 02/22/20 TC:2 CPT: 87528, 12782 x2
--- NOTE | 2020-02-21 14:13 | OP.PCM_ITS ---
Report of Operation Date of Procedure: 02/21/20 Pre-Operative Diagnosis: 1. Draining hidradenitis abscess left lateral ab dominal wall skin crease with extension into inguinal area. 2. Necrotizing soft tissue infection. 3. Hidradenitis. 4. Diabetes mellitus. 5. Obesity. 6. Smoker. 7. s/p I&D of hidradenitis abscess. 8. Abdominal panniculus with panniculitis. Post-Operative Diagnosis: 1. Draining hidradenitis abscess left lateral abdominal wall skin crease. 2. Hidradenitis abscess left inguinal area. 3. Necrotizing soft tissue infection. 4. Hidradenitis. 5. Diabetes mellitus. 6. Obesity. 7. Smoker. 8. s/p I&D of hidradenitis abscess. 9. Abdominal panniculus with panniculitis. Surgery/Procedure Performed:: 1. Surgical preparation left abdominal wall skin crease with excisional debridement skin, subcutaneous tissue, and fascia for necrotizing soft tissue hidradenitis abscess infection. 2. Surgical preparation left inguinal area with excision necrotizing soft tissue hidradenitis abscess infection. Description of Surgical Findings:: The patient is a 34 year old F who was admitted because of a worsening hidradenits in her left groin/abdomen with increasing redness, firmness and pain. She had fever and chills at home. She has a history of hidradenitis suppurativa requiring abscess drainage in the past. Her WBC on admission was 19.7 and it has decreased to 12.1. She was started on Vancomycin and Zosyn. CT showed small inguinal lymph nodes bilaterally. There is a 6.6 x 12.8 cm area of the subcutaneous edematous changes overlying the left groin. This is suggestive of cellulitis. No tracey abscess is seen. On 02/19/20, there was some purulent drainage noted. Dr. Lyons from General Surgery performed an I&D procedure with improvement in her symptomatology. Saline wet to dry dressing changes were started. Wound culture thus far is negative. Her MRSA DNA by PCR was negative. The Vancomycin was stopped and she continues on Zosyn. Patient has diabetes mellitus and her HgbA1c at this admission was 11.7. I was asked to evaluate this patient for surgical options for treatment. Patient was informed of the risks and complications of the procedure including alternatives to surgery. These were discussed with the patient personally. Patient voices understanding and wishes to proceed. Encouraged patient to stop smoking as it may have deleterious effects on wound healing. Size of left abdominal wall and left inguinal area defect - 13 x 31 x 5 cm. boom stick man: None Type of Anesthesia:: General Specimen's removed: Left abdominal wall skin crease and left inguinal hidradenitis abscess infection to Pathology and Microbiology. Drains: None. Estimated Blood Loss (mL): 50 ml. Description of Procedure: Patient was taken to OR in supine position and was placed under general anesthesia. The left abdominal wall, left inguinal area and left vulval area were prepped and draped in the usual fashion. SCD's were placed for DVT prophylaxis. Perioperative antibiotics were given intravenously. Using xylocaine with epinephrine, the draining abscess area was infiltrated. After waiting 5 minutes for the anesthetic to take effect, I proceeded with incision and drainage around the draining abscess area left abdominal wall skin crease. Some pus was seen in the subcutaneous tissue. A lot of fat necrosis was present. The necrotic tissue extended past Kendall's fascia down to the abdomi nal wall fascia. The abdominal wall fascia appeared viable. The fat necrosis was excised and debrided. There was a lot of undermining and surrounding induration that was also excised and debrided to open up any further areas of infection and to make the wound care easier after surgery with the VAC. There was extension of the infection into the left inguinal area. Further incision and drainage was performed in the left inguinal area. Some pus was seen in the subcutaneous tissue. A lot of fat necrosis was present. The necrotic tissue extended down to the muscular fascia which appeared viable. Infection extended medially toward the vulval and mons pubis area but did not involve the vulva at this time. The fat necrosis was excised and debrided. There was a thin skin bridge between the left abdominal wall skin crease area wound and the left inguinal area wound which was excised to make it one larger wound to help with wound care with the VAC postoperatively. Some of the tissue was sent to Pathology for analysis to rule out carcinoma and some of the tissue was sent to Microbiology for culture. A positive culture may necessitate antibiotic therapy. Hemostasis was obtained with electrocautery. The wound was irrigated with saline. The size of the defect involving the left abdominal wall skin crease area and the left inguinal area was 13 x 31 x 5 cm or 403 cm2. The large wound was dressed with Mepitel nonadherent dressing followed by Kerlix gauze and Betadine followed by dry Kerlix gauze and ABD pads compression dressing followed by a compression KIERAN wrap. Patient tolerated the procedure well and was sent to PACU in satisfactory condition. Patient will be sent upstairs for continued postop care. The VAC will be applied tomorrow. After discharge, she will followup at the Wound Center. If a plateau develops in the healing process, then can proceed with delayed closure with skin grafting. For any skin grafting procedure, the HgbA1c needs to be less than 8. During this admission it was 11.7. Anticipate increased metabolic demands from the infection and from the surgical wound. Will encourage nutritional supplementation with protein to help the healing process. Grafts/Implants Used: None. - Complications None. - Admit VTE Documentation VTE Present on Admission: No VTE Mechan Device Prophylaxis: SCD's VTE Pharm Prophylaxis ordered?: Yes Surgery Charges CPT - 78531 ICD-10 - L02.211, L73.2, M79.89, E11.9, E66.9, E65, M79.3, F17.200 61705 L02.214, L73.2, M79.89, E11.9, E66.9, E65, M79.3, F17.200
--- NOTE | 2020-02-21 14:34 | PN_ITS ---
<Matthias Torres - Last Filed: 02/21/20 14:34> Patient Problems: Active and Suspected Problems Panniculitis (Acute) Necrotizing soft tissue infection (Acute) Abdominal wall abscess (Acute) Reason for Visit: left groin HS Subjective: Patient seen and examined pre op in chair at bedside in [facility]. pain improved. no fever/chills. no cough/SOB. agreeable to surgery. Vitals/I&O's: Vital Signs Temp Pulse Resp BP Pulse Ox 98.2 F 67 16 156/96 H 94 02/21/20 14:26 02/21/20 14:26 02/21/20 14:26 02/21/20 14:26 02/21/20 14:26 Oxygen Delivery Method Room Air Weight: 325 lb 0.017 oz Body Mass Index (BMI) 49.4 Intake and Output for Last 24 Hours 02/19/20 02/20/20 02/21/20 23:59 23:59 23:59 Intake Total 2400 / 2400 2550 / 2550 400 / 400 Balance 2400 / 2400 2550 / 2550 400 / 400 General: Alert, Oriented x3, Cooperative HEENT: Atraumatic, PERRLA, EOMI, Normocephalic Neck: Supple, No JVD, Negative Carotid Bruits Lungs: Clear to auscultation, Normal air movement Cardiovascular: Regular rate, No murmurs Abdomen: Bowel Sounds Present, Soft, Non Tender, Obese Extremities: No edema, Capillary Refill Less than 3 Seconds Skin: No rashes, No breakdown Musculoskeletal: No Tenderness to Palpation of Joints or Extremities Neurological: Cranial nerves II-XII grossly intact Psych/Mental Status: Normal Affect, Appropriate, Alert and oriented to time, place, person, mood and affect Microbiology Past 72 Hours 02/16/20 13:15 Blood Culture (Wb) - Right Forearm Blood Culture - Final No growth in 5 days. 02/16/20 13:20 Blood Culture (Wb) - Right Hand Blood Culture - Final No growth in 5 days. 02/19/20 08:53 Wound - Abdominal Gram Stain - Final 02/19/20 08:53 Wound - Abdominal Wound Culture - Preliminary No growth-Final to follow 02/19/20 13:45 Mucosa - Nasopharyngeal Coronavirus COVID-19 PCR - Final Laboratory Results 02/20/20 16:19: POC Glucose 107 02/20/20 20:08: Urine Test Negative 02/20/20 22:04: POC Glucose 131 H 02/21/20 05:35: WBC 12.1 H, RBC 5.03, Hgb 14.6, Hct 44.5, MCV 88.5, MCH 29.0, MCHC 32.8, RDW Std Deviation 40.4, RDW Coeff of Violeta 12.5, Plt Count 334, MPV 11.1, Immature Gran % (Auto) 0.600, Neut % (Auto) 56.1, Lymph % (Auto) 33.3, Park % (Auto) 6.7, Eos % (Auto) 2.8, Baso % (Auto) 0.5, Absolute Neuts (auto) 6.8, Absolute Lymphs (auto) 4.04, Nucleated RBC % 0 02/21/20 05:35: Sodium 137, Potassium 3.8, Chloride 101, Carbon Dioxide 31.0, Anion Gap 5, BUN 9, Creatinine 0.66, Estim Creat Clear Calc 118.87, Est GFR (MDRD) Af Amer 130, Est GFR (MDRD) Non-Af 108, BUN/Creatinine Ratio 13.7, Glucose 143 H, Calcium 9.3 02/21/20 06:54: POC Glucose 137 H 02/21/20 11:25: POC Glucose 137 H Current Medications Acetaminophen (Tylenol) 650 mg PO Q6H PRN PRN PRN Reason: Pain or Fever Atorvastatin Calcium (Lipitor) 40 mg PO QHS [facility] Last Admin: 02/20/20 22:00 Dose: 40 mg Documented by: Dextrose (D50w Syringe) 0 gm IV X1 PRN; Protocol PRN Reason: Hypoglycemia Enoxaparin Sodium (Lovenox) 40 mg SC DAILY@0600 [facility] Last Admin: 02/21/20 06:13 Dose: Not Given Documented by: Glucagon () 1 mg IM .X1 PRN PRN Reason: Hypoglycemia Sodium Chloride () 250 mls @ 15 mls/hr IV .[id number] PRN PRN Reason: Saline Flush Last Infusion: 02/18/20 06:47 Dose: 0 mls/hr Documented by: Sodium Chloride () 250 mls @ 15 mls/hr IV .[id number] PRN PRN Reason: Additional IVPB Infusion Piperacillin Sod/Tazobactam (Sod 3.375 gm/ Sodium Chloride) 50 mls @ 12.5 mls/hr IV Q8 [facility] Last Admin: 02/21/20 14:01 Dose: 12.5 mls/hr Documented by: Lactated Ringer's () 1,000 mls @ 100 mls/hr IV .Q10H [facility] Last Admin: 02/21/20 12:15 Dose: 100 mls/hr Documented by: Insulin Glargine (Lantus (Bk)) 28 units SC QHS [facility] Last Admin: 02/20/20 22:05 Dose: Not Given Documented by: Insulin Human Lispro (Humalog Kwikpen ([facility])) 0 unit SC TIDAC [facility]; Protocol Last Admin: 02/21/20 06:55 Dose: Not Given Documented by: Insulin Human Lispro (Humalog Kwikpen ([facility])) 5 unit SC LUNCH [facility] Last Admin: 02/20/20 11:27 Dose: 5 units Documented by: Insulin Human Lispro (Humalog Kwikpen ([facility])) 5 unit SC BREAKFAST [facility] Last Admin: 02/21/20 10:25 Dose: Not Given Documented by: Insulin Human Lispro (Humalog Kwikpen ([facility])) 8 unit SC DINNER [facility] Last Admin: 02/20/20 17:10 Dose: 8 units Documented by: Lisinopril (Zestril) 5 mg PO DAILY [facility] Last Admin: 02/21/20 11:27 Dose: 5 mg Documented by: Metformin HCl (Glucophage) 1,000 mg PO BIDCM [facility] Last Admin: 02/21/20 10:08 Dose: Not Given Documented by: Nicotine (Nicoderm Cq (kc)) 21 mg TRANSDERM. DAILY [facility] Last Admin: 02/20/20 09:11 Dose: 21 mg Documented by: Nicotine Polacrilex (Rugby Nicotine (Bkc)) 2 mg PO Q2H PRN PRN PRN Reason: Nicotine Craving Last Admin: 02/21/20 06:28 Dose: 2 mg Documented by: Ondansetron HCl (Zofran) 4 mg IV Q8H PRN PRN PRN Reason: NAUSEA/VOMITING Last Admin: 02/17/20 06:53 Dose: 4 mg Documented by: Oxycodone HCl (Oxyir) 5 - 10 mg PO Q6H PRN PRN PRN Reason: Pain Score 6-10/10 Last Admin: 02/21/20 03:11 Dose: 5 mg Documented by: Sodium Chloride () 10 - 40 ml IV UD PRN PRN Reason: SALINE FLUSH Last Admin: 02/20/20 22:01 Dose: 10 ml Documented by: Venlafaxine HCl (Effexor Xr) 75 mg PO DAILY [facility] Last Admin: 02/20/20 09:11 Dose: 75 mg Documented by: STROKE Vital Signs/Narrative: Vital Signs Temp Pulse Resp BP Pulse Ox 02/21/20 14:26 98.2 F 67 16 156/96 H 94 02/21/20 11:29 97.9 F 47 L 18 162/101 H 98 02/21/20 11:21 97.9 F 47 L 18 162/101 H 98 Medical Necessity - Tobacco Use Smoking Status: Current some day smoker Tobacco Use: Cigarettes Assessment/Plan All Active Problems Panniculitis (Acute) Necrotizing soft tissue infection (Acute) Abdominal wall abscess (Acute) 1. L groin cellulitis 2/2 Hydradenitis Suppurativa - Vanc / Zosyn. Gen surgery lanced and drained it yesterday. Cx sent - no growth, blood cultures neg. Surgery with Dr. Asencio today POD#0: surgical excision. Fever resolved. WBC improved. Covid neg. 2. Nicotine abuse - patch, gum. 3. T2DM with Morbid obesity - orthotics prosthetics technician consult. Metformin, Lantus, SSI. Insulin therapy is being adjusted to optimize blood sugar. A1C 11.7. 4. HTN - lebatolol stopped, lisinopril started. 5. HLD - lipitor 6. Depression - effexor started. DVT ppx: early ambulation DC planning: Monitor post op overnight This patient was seen by Matthias Torres PA-C under the supervision of Dr. Krishna <Jr Krishna - Last Filed: 02/21/20 15:24> Reason for Visit: Follow-up for left groin hidradenitis. History of hidradenitis supra T. Briana in bilateral axillary and groin region Vitals/I&O's: Vital Signs Temp Pulse Resp BP Pulse Ox 98.2 F 46 L 18 171/98 H 95 02/21/20 14:26 02/21/20 15:00 02/21/20 15:00 02/21/20 15:00 02/21/20 15:00 Oxygen Flow Rate (L/min) 2 Oxygen Delivery Method Nasal Cannula Weight: 325 lb 0.017 oz Body Mass Index (BMI) 49.4 Intake and Output for Last 24 Hours 02/19/20 02/20/20 02/21/20 23:59 23:59 23:59 Intake Total 2400 / 2400 2550 / 2550 570 / 570 Balance 2400 / 2400 2550 / 2550 570 / 570 General: Alert, Oriented x3, Cooperative HEENT: Atraumatic, PERRLA, EOMI, Normocephalic Neck: Supple, No JVD, Negative Carotid Bruits Lungs: Clear to auscultation, Normal air movement Cardiovascular: Regular rate, No murmurs Abdomen: Bowel Sounds Present, Soft, Non Tender, Obese Extremities: No edema, Capillary Refill Less than 3 Seconds Skin: Ulcer/ Wound - Ulcer over the left groin region with abscess, purulent drainage, induration, tenderness suggestive of cellulitis of surrounding region Musculoskeletal: No Tenderness to Palpation of Joints or Extremities Neurological: Cranial nerves II-XII grossly intact Psych/Mental Status: Normal Affect, Appropriate Microbiology Past 72 Hours 02/16/20 13:15 Blood Culture (Wb) - Right Forearm Blood Culture - Final No growth in 5 days. 02/16/20 13:20 Blood Culture (Wb) - Right Hand Blood Culture - Final No growth in 5 days. 02/19/20 08:53 Wound - Abdominal Gram Stain - Final 02/19/20 08:53 Wound - Abdominal Wound Culture - Preliminary No growth-Final to follow 02/19/20 13:45 Mucosa - Nasopharyngeal Coronavirus COVID-19 PCR - Final Laboratory Results 02/20/20 16:19: POC Glucose 107 02/20/20 20:08: Urine Test Negative 02/20/20 22:04: POC Glucose 131 H 02/21/20 05:35: WBC 12.1 H, RBC 5.03, Hgb 14.6, Hct 44.5, MCV 88.5, MCH 29.0, MCHC 32.8, RDW Std Deviation 40.4, RDW Coeff of Violeta 12.5, Plt Count 334, MPV 11.1, Immature Gran % (Auto) 0.600, Neut % (Auto) 56.1, Lymph % (Auto) 33.3, Park % (Auto) 6.7, Eos % (Auto) 2.8, Baso % (Auto) 0.5, Absolute Neuts (auto) 6.8, Absolute Lymphs (auto) 4.04, Nucleated RBC % 0 02/21/20 05:35: Sodium 137, Potassium 3.8, Chloride 101, Carbon Dioxide 31.0, Anion Gap 5, BUN 9, Creatinine 0.66, Estim Creat Clear Calc 118.87, Est GFR (MDRD) Af Amer 130, Est GFR (MDRD) Non-Af 108, BUN/Creatinine Ratio 13.7, Glucose 143 H, Calcium 9.3 02/21/20 06:54: POC Glucose 137 H 02/21/20 11:25: POC Glucose 137 H 02/21/20 14:32: POC Glucose 143 H Current Medications Acetaminophen (Tylenol) 650 mg PO Q6H PRN PRN PRN Reason: Pain or Fever Atorvastatin Calcium (Lipitor) 40 mg PO QHS [facility] Last Admin: 02/20/20 22:00 Dose: 40 mg Documented by: Dextrose (D50w Syringe) 0 gm IV X1 PRN; Protocol PRN Reason: Hypoglycemia Enoxaparin Sodium (Lovenox) 40 mg SC DAILY@0600 [facility] Last Admin: 02/21/20 06:13 Dose: Not Given Documented by: Glucagon () 1 mg IM .X1 PRN PRN Reason: Hypoglycemia Sodium Chloride () 250 mls @ 15 mls/hr IV .[id number] PRN PRN Reason: Saline Flush Last Infusion: 02/18/20 06:47 Dose: 0 mls/hr Documented by: Sodium Chloride () 250 mls @ 15 mls/hr IV .[id number] PRN PRN Reason: Additional IVPB Infusion Piperacillin Sod/Tazobactam (Sod 3.375 gm/ Sodium Chloride) 50 mls @ 12.5 mls/hr IV Q8 [facility] Last Infusion: 02/21/20 15:00 Dose: Infused Documented by: Lactated Ringer's () 1,000 mls @ 100 mls/hr IV .Q10H [facility] Last Admin: 02/21/20 12:15 Dose: 100 mls/hr Documented by: Insulin Glargine (Lantus (Bkc)) 28 units SC QHS [facility] Last Admin: 02/20/20 22:05 Dose: Not Given Documented by: Insulin Human Lispro (Humalog Kwikpen ([facility])) 0 unit SC TIDAC [facility]; Protocol Last Admin: 02/21/20 06:55 Dose: Not Given Documented by: Insulin Human Lispro (Humalog Kwikpen ([facility])) 5 unit SC LUNCH [facility] Last Admin: 02/20/20 11:27 Dose: 5 units Documented by: Insulin Human Lispro (Humalog Kwikpen ([facility])) 5 unit SC BREAKFAST [facility] Last Admin: 02/21/20 10:25 Dose: Not Given Documented by: Insulin Human Lispro (Humalog Kwikpen ([facility])) 8 unit SC DINNER [facility] Last Admin: 02/20/20 17:10 Dose: 8 units Documented by: Lisinopril (Zestril) 5 mg PO DAILY [facility] Last Admin: 02/21/20 11:27 Dose: 5 mg Documented by: Metformin HCl (Glucophage) 1,000 mg PO BIDCM [facility] Last Admin: 02/21/20 10:08 Dose: Not Given Documented by: Nicotine (Nicoderm Cq ([facility])) 21 mg TRANSDERM. DAILY [facility] Last Admin: 02/20/20 09:11 Dose: 21 mg Documented by: Nicotine Polacrilex (Rugby Nicotine ([facility])) 2 mg PO Q2H PRN PRN PRN Reason: Nicotine Craving Last Admin: 02/21/20 06:28 Dose: 2 mg Documented by: Ondansetron HCl (Zofran) 4 mg IV Q8H PRN PRN PRN Reason: NAUSEA/VOMITING Last Admin: 02/17/20 06:53 Dose: 4 mg Documented by: Oxycodone HCl (Oxyir) 5 - 10 mg PO Q4H PRN PRN PRN Reason: Pain Score 4-10/10 Sodium Chloride () 10 - 40 ml IV UD PRN PRN Reason: SALINE FLUSH Last Admin: 02/20/20 22:01 Dose: 10 ml Documented by: Venlafaxine HCl (Effexor Xr) 75 mg PO DAILY [facility] Last Admin: 02/20/20 09:11 Dose: 75 mg Documented by: STROKE Vital Signs/Narrative: Vital Signs Temp Pulse Resp BP Pulse Ox 02/21/20 15:00 46 L 18 171/98 H 95 02/21/20 14:45 48 L 18 172/75 H 97 02/21/20 14:30 64 16 154/91 H 92 02/21/20 14:26 98.2 F 67 16 156/96 H 94 02/21/20 11:29 97.9 F 47 L 18 162/101 H 98 02/21/20 11:21 97.9 F 47 L 18 162/101 H 98 Assessment/Plan This patient was seen in conjunction with Matthias KEY. I have independently interviewed and examined the patient and reviewed pertinent history, examination findings, laboratory and plan of management. I have reviewed the note and agree with the documented findings with the few additional points. In brief, patient is admitted for left inguinal region hidradenitis abscess involving left lateral abdominal wall skin crease, necrotizing soft tissue infection/deep tissue infection. Patient on broad-spectrum antibiotic vancomycin and Zosyn. Dr. Asencio is consulted. Patient had excisional debridement of skin, subcutaneous tissue and fascia for necrotizing deep tissue infection and drainage of abscess. Surgical tissue cultures are pending. Patient has other chronic comorbidities which include type 2 diabetes mellitus, morbid obesity, hypertension, dyslipidemia and depression. I have discussed my assessment with Matthias KEY and orders have been reviewed. Inpatient E&M: [id number] Subs Hosp L2
[2020-02-21 14:36] LABS: Bedside Glucose 143 mg/dL (70-110)
[2020-02-21] MEDS: Venlafaxine XR 75 MG Capsule PO (16:08)
[2020-02-21] MEDS: 0.9% Saline Lock 10 ML Syringe IV (16:12)
[2020-02-21] MEDS: HYDROmorphone 1 MG/ML Syringe IV ×2 (16:12→22:18)
[2020-02-21 17:05] LABS: Bedside Glucose 123 mg/dL (70-110)
[2020-02-21] MEDS: 0.9% Normal Saline 1,000 ML 100 ML IV (17:47)
[2020-02-21] MEDS: metFORMIN HCl 1,000 MG Tablet 1000 MG PO (17:48)
[2020-02-21] MEDS: Insulin Lispro 100 UNIT/ML INSULN.PEN 8 UNIT SC (17:48)
[2020-02-21] MEDS: Atorvastatin Calcium 40 MG Tablet PO (22:10)
[2020-02-21 22:20] LABS: Bedside Glucose 152 mg/dL (70-110)
[2020-02-22] MEDS: oxyCODONE 5 MG Tablet PO ×3 (03:45→15:40)
[2020-02-22 03:51] VITALS: BP 143/89; PULSE 47; RESP 16; TEMP 36.6; O2SAT 97
[2020-02-22 05:40] LABS: Absolute Lymphocyte Count 3.93 X10^3/uL (0.83-4.51); Absolute Neutrophil Count 8.2 X10^3/uL (2.0-7.7); Basophil# 0.08 X10^3/uL; Basophil% 0.6 % (0-1); Eosinophil# 0.33 X10^3/uL; Eosinophils% 2.4 % (0-5); Hematocrit 42.1 % (37-47); Hemoglobin 13.5 g/dL (12.0-15.0); Lymphocyte # 3.93 X10^3/ul (4.0); Lymphocyte % 28.8 % (19-41); Mean Corp Hgb Conc 32.1 g/dL (32-36); Mean Corpuscular Hgb 29.1 pg (27.0-32.0); Mean Corpuscular Volume 90.7 fL (81-99); Mean Platelet Vol. 10.9 fl (6.2-12.0); Monocyte# 0.96 X10^3/uL; NRBC Flagged by Analyzer 0 % (0-5); Neutrophil # 8.24 X10^3/uL (2.7-7.7); Neutrophil % 60.5 % (47-70); Platelet Count 318 K/mm3 (150-450); RBC Distribution Width CV 12.5 % (11.6-14.6); RBC Distribution Width SD 41.7 fl (35.1-43.9); Red Blood Count 4.64 M/mm3 (4.2-5.4); White Blood Count 13.6 K/mm3 (4.4-11.0)
[2020-02-22] MEDS: Enoxaparin 40 MG/0.4 ML Syringe SC (06:00)
[2020-02-22 06:09] LABS: Anion Gap 7 (5-15); BUN 11 mg/dL (7-18); BUN/Creat Ratio 18.1 RATIO (10-20); Calcium,Total 8.6 mg/dL (8.5-10.1); Chloride 100 mmol/L (98-107); Creatinine, Serum 0.61 mg/dL (0.55-1.02); EST Glomerular Filtration Rate 118 mL/min (>60); Est Glom Filt Rate - Afr Amer 143 mL/min (>60); Estimated Creatinine Clearance 128.61 ml/min; Glucose 133 mg/dL (74-106); Potassium 4.1 mmol/L (3.5-5.1); Prealbumin 10.8 mg/dL (20.0-40.0); Sodium Level 136 mmol/L (136-145)
[2020-02-22] MEDS: HYDROmorphone 1 MG/ML Syringe IV (07:55)
[2020-02-22] MEDS: 0.9% Saline Lock 10 ML Syringe IV (07:56)
[2020-02-22 07:58] VITALS: BP 165/102; PULSE 58; RESP 18; TEMP 36.6; O2SAT 94
[2020-02-22] MEDS: metFORMIN HCl 1,000 MG Tablet 1000 MG PO (08:09)
[2020-02-22] MEDS: Insulin Lispro 100 UNIT/ML INSULN.PEN SC ×2 (08:11→12:22)
[2020-02-22] MEDS: Nicotine Polacrilex 2 MG GUM PO (08:12)
[2020-02-22 08:21] LABS: Bedside Glucose 146 mg/dL (70-110)
--- NOTE | 2020-02-22 10:30 | NURSING ---
Pt had been up in the bathroom and was able to void prior to this nurse placing the wound VAC. pt tolerated VAC application well.
--- NOTE | 2020-02-22 10:55 | NURSING ---
wound photo: left lower abdomen
--- NOTE | 2020-02-22 10:59 | DCINST_ITS ---
- Discharge Diagnoses Current Active Problems: Current Active and Chronic Problems Type 2 diabetes mellitus (Chronic) Hyperlipidemia (Chronic) Hypertension (Chronic) You will use the following diet at home:: Calorie/Carbohydrate Controlled (specify 1200, 1400, etc) - 1800 yasmin / day, Cardiac Your food should be the consistency of: Regular Your liquids should be the consistency of: Regular/Thin Discharge Activity: Return to Normal Activity, - - You need complete smoking cessation to prevent recurrence and to help facilitate wound healing. Allergies/Adverse Reactions: Allergies No Known Allergies Allergy (Verified 02/16/20 10:29) Medications to take at Discharge Atorvastatin Calcium [Lipitor] 40 mg PO QHS 02/16/20 Dulaglutide [Trulicity] 0.75 mg SQ QWEEK 02/16/20 Ergocalciferol [Vitamin D] 1 cap PO QWEEK 02/16/20 metFORMIN HCl [Glucophage] 1,000 mg PO BID 02/16/20 Acetaminophen [Tylenol Tablet] 650 mg PO Q6H PRN PRN tablet 02/22/20 Amox/Clavulanate Tablet [Augmentin Tablet] 875 mg PO Q12H #20 tab 02/22/20 Doxycycline [Vibramycin] 100 mg PO BID #20 cap 02/22/20 Insulin Glargine [Lantus SoloStar Pen] 28 units SC QHS pen 02/22/20 Lisinopril [Zestril] 5 mg PO DAILY #30 tab 02/22/20 Venlafaxine XR [Effexor Xr] 75 mg PO DAILY #30 cap 02/22/20 The following prescriptions were given: Amox/Clavulanate Tablet [Augmentin Tablet] 875 mg PO Q12H #20 tab Transmission Status: Pending to [facility] Venlafaxine XR [Effexor Xr] 75 mg PO DAILY #30 cap Transmission Status: Pending to [facility] Doxycycline [Vibramycin] 100 mg PO BID #20 cap Transmission Status: Pending to [facility] Lisinopril [Zestril] 5 mg PO DAILY #30 tab Transmission Status: Pending to [facility] Primary Care Physician: Amanda Wilkes MD [Primary Care Provider] - Please follow up with your Primary Care Physician in: 1-2 weeks Test Results: Test results from this visit will be discussed in further detail at your follow- up appointment, if applicable. Please Follow Up With: Gibson Asencio MD When: 1-2 weeks Proposed Discharge Date: 02/22/20
[2020-02-22] MEDS: Venlafaxine XR 75 MG Capsule PO (11:44)
[2020-02-22] MEDS: Lisinopril 5 MG Tablet PO (11:44)
--- NOTE | 2020-02-22 11:45 | CASEMGMT ---
Addendum entered by Ivis Dooley 02/22/20 14:46: DELROY ARANDA received call back from [facility] and they are able to accept the patient. DELROY ARANDA updated patient and wound nurse regarding HHC setup with [facility]. Original Note: DELROY ARANDA updated by wound nurse that patient will need HHC for wound vac changes. DELROY ARANDA in to discuss HHC with patient. List of HHC agencies given to patient and she would like [facility]. DELROY ARANDA sent referral to [facility] and awaiting acceptance.
[2020-02-22 12:11] LABS: Bedside Glucose 148 mg/dL (70-110)
--- NOTE | 2020-02-22 13:27 | PCM.DC.SUM ---
<Matthias Torres - Last Filed: 02/22/20 13:40> Discharge Date and Diagnosis Date of Admission: 02/16/20 Date of Discharge: 02/22/20 - Primary Discharge Diagnosis Acute Problems: Left groin hydradenitis suppuritiva with cellulitis and abscess gram positive sal Nicotine abuse T2DM with morbid obesity HTN HLD Depression - Secondary Discharge Diagnosis Chronic Problems: Chronic Problems Abdominal panniculus, symptomatic (Chronic) Smoker (Chronic) Obesity (Chronic) Hidradenitis (Chronic) Type 2 diabetes mellitus (Chronic) Hyperlipidemia (Chronic) Hypertension (Chronic) Hospital Course and Treatment Imaging Results: CT/Abdomen/Pelvis W IV Cont ONLY IMPRESSION: Findings suggest cellulitis in the area of the left groin as described. Consultations 02/19/20 19:08 Consult: Onc/Wound/pest control service sales agent Routine Comment: Reason for Consult:: wound dressing Plastics: Luis M Gen Surgery: [facility] Operations: - - excisional debridement left groin Procedures: - Summary of Care Provided: Hospital Course: The patient is a 34 year old F with pmhx of hydradenitis suppuritiva with prior debridement of right groin wounds, who presented to the ER with left groin redness and pain. She had leukocytosis of 19.7k and ultimately had fever. She was felt to have cellulitis of the left groin 2/2 [address] She had a [address] that did not demonstrate an underlying abcess. She was placed on ancef and failed to have significant improvement. Doxy was added and she continued to have increased pain with minimal improvement of the left groin. She was placed on vanc and zosyn. Gen surgery was consulted and opened the wound at the bedside with copious foul smelling pus. A significant amount of wound tracking was appreciated and further debridement in the OR was recommended. Dr. Asencio took her to the OR for excisional debridement 02/21/20. A wound vac was placed. She did well post op with good improvement in pain and leukocytosis. She was transitioned to 10 days of augmentin and doxy to complete as an outpatient. She will need follow up with the wound care center and Dr. Asencio in 1-2 weeks and with her PCP in 1-2 weeks. Also of note she had very poorly controlled blood sugars while here and she had significant increases to lantus made that she will need to continue at home. She was provided with diabetic diet education. She also had notable evidence of depression and was started on venlafaxine. She was transitioned from lebatolol to lisinopril for blood pressure control. She was educated on the importance of quitting smoking and controlling her blood sugars with regards to wound healing and control of HS. She was discharged home in stable condition with home health care and a wound vac. This patient was seen by Matthias Torres PA-C under the supervision of Dr. Krishna. [] - Physical Exam Vitals/I&O's: Vital Signs Temp Pulse Resp BP Pulse Ox 97.8 F 58 L 18 165/102 H 94 02/22/20 07:58 02/22/20 07:58 02/22/20 07:58 02/22/20 07:58 02/22/20 07:58 Oxygen Flow Rate (L/min) 2 Oxygen Delivery Method Room Air Weight: 325 lb 0.017 oz Body Mass Index (BMI) 49.4 Intake and Output for Last 24 Hours 02/20/20 02/21/20 02/22/20 23:59 23:59 23:59 Intake Total 2550 / 2550 485 / 485 Balance 2550 / 2550 485 / 485 General: Alert, Oriented x3, Cooperative HEENT: Atraumatic, PERRLA, EOMI, Normocephalic Neck: Supple, No JVD, Negative Carotid Bruits Lungs: Clear to auscultation, Normal air movement Cardiovascular: Regular rate, No murmurs Abdomen: Bowel Sounds Present, Soft, Non Tender, Obese Extremities: No edema, Capillary Refill Less than 3 Seconds Skin: No rashes, No breakdown Musculoskeletal: No Tenderness to Palpation of Joints or Extremities Neurological: Cranial nerves II-XII grossly intact Psych/Mental Status: Normal Affect, Appropriate, Alert and oriented to time, place, person, mood and affect Microbiology Past 72 Hours 02/19/20 08:53 Wound - Abdominal Gram Stain - Final 02/19/20 08:53 Wound - Abdominal Wound Culture - Preliminary Gram positive sal 02/21/20 Unknown Tissue - Abdominal Gram Stain - Final 02/21/20 Unknown Tissue - Abdominal Wound Culture - Preliminary No growth-Final to follow 02/16/20 13:15 Blood Culture (Wb) - Right Forearm Blood Culture - Final No growth in 5 days. 02/16/20 13:20 Blood Culture (Wb) - Right Hand Blood Culture - Final No growth in 5 days. 02/19/20 13:45 Mucosa - Nasopharyngeal Coronavirus COVID-19 PCR - Final Laboratory Results 02/21/20 14:32: POC Glucose 143 H 02/21/20 16:59: POC Glucose 123 H 02/21/20 22:12: POC Glucose 152 H 02/22/20 05:15: WBC 13.6 H, RBC 4.64, Hgb 13.5, Hct 42.1, MCV 90.7, MCH 29.1, MCHC 32.1, RDW Std Deviation 41.7, RDW Coeff of Violeta 12.5, Plt Count 318, MPV 10.9, Immature Gran % (Auto) 0.700, Neut % (Auto) 60.5, Lymph % (Auto) 28.8, [place] % (Auto) 7.0, Eos % (Auto) 2.4, Baso % (Auto) 0.6, Absolute Neuts (auto) 8.2 H, Absolute Lymphs (auto) 3.93, Nucleated RBC % 0 02/22/20 05:15: Sodium 136, Potassium 4.1, Chloride 100, Carbon Dioxide 29.0, Anion Gap 7, BUN 11, Creatinine 0.61, Estim Creat Clear Calc 128.61, Est GFR (MDRD) Af Amer 143, Est GFR (MDRD) Non-Af 118, BUN/Creatinine Ratio 18.1, Glucose 133 H, Calcium 8.6, Prealbumin 10.8 L 02/22/20 08:00: POC Glucose 146 H 02/22/20 11:54: POC Glucose 148 H Current Medications Acetaminophen (Tylenol) 650 mg PO Q6H PRN PRN PRN Reason: Pain or Fever Atorvastatin Calcium (Lipitor) 40 mg PO QHS COUNTS INCLUDE 234 BEDS AT THE [facility] Last Admin: 02/21/20 22:10 Dose: 40 mg Documented by: Dextrose (D50w Syringe) 0 gm IV X1 PRN; Protocol PRN Reason: Hypoglycemia Diazepam (Valium) 5 mg PO 4X/DAY PRN PRN PRN Reason: SPASMS Enoxaparin Sodium (Lovenox) 40 mg SC DAILY@0600 COUNTS INCLUDE 234 BEDS AT THE [facility] Last Admin: 02/22/20 06:00 Dose: 40 mg Documented by: Glucagon () 1 mg IM .X1 PRN PRN Reason: Hypoglycemia Hydromorphone HCl (Dilaudid Inj) 1 mg IV Q3H PRN PRN PRN Reason: Pain Score 6-10/10 Last Admin: 02/22/20 07:55 Dose: 1 mg Documented by: Sodium Chloride () 250 mls @ 15 mls/hr IV .[id number] PRN PRN Reason: Saline Flush Last Infusion: 02/21/20 15:21 Dose: Infused Documented by: Sodium Chloride () 250 mls @ 15 mls/hr IV .[id number] PRN PRN Reason: Additional IVPB Infusion Piperacillin Sod/Tazobactam (Sod 3.375 gm/ Sodium Chloride) 50 mls @ 12.5 mls/hr IV Q8 COUNTS INCLUDE 234 BEDS AT THE [facility] Last Infusion: 02/22/20 10:00 Dose: Infused Documented by: Sodium Chloride () 1,000 mls @ 100 mls/hr IV .Q10H COUNTS INCLUDE 234 BEDS AT THE [facility] Last Infusion: 02/22/20 06:01 Dose: 0 mls/hr Documented by: Insulin Glargine (Lantus (Bkc)) 28 units SC QHS COUNTS INCLUDE 234 BEDS AT THE [facility] Last Admin: 02/21/20 22:10 Dose: 28 units Documented by: Insulin Human Lispro (Humalog Kwikpen (Bkc)) 0 unit SC TIDAC COUNTS INCLUDE 234 BEDS AT THE [facility]; Protocol Last Admin: 02/22/20 12:04 Dose: Not Given Documented by: Insulin Human Lispro (Humalog Kwikpen (Bkc)) 5 unit SC LUNCH COUNTS INCLUDE 234 BEDS AT THE [facility] Last Admin: 02/22/20 12:22 Dose: 5 units Documented by: Insulin Human Lispro (Humalog Kwikpen (Bkc)) 5 unit SC BREAKFAST COUNTS INCLUDE 234 BEDS AT THE [facility] Last Admin: 02/22/20 08:11 Dose: 5 units Documented by: Insulin Human Lispro (Humalog Kwikpen (Bkc)) 8 unit SC DINNER COUNTS INCLUDE 234 BEDS AT [facility] Last Admin: 02/21/20 17:48 Dose: 8 units Documented by: Lisinopril (Zestril) 5 mg PO DAILY COUNTS INCLUDE 234 BEDS AT [facility] Last Admin: 02/22/20 11:44 Dose: 5 mg Documented by: Metformin HCl (Glucophage) 1,000 mg PO BIDCM COUNTS INCLUDE 234 BEDS AT THE [facility] Last Admin: 02/22/20 08:09 Dose: 1,000 mg Documented by: Nicotine (Nicoderm Cq (Pbkc)) 21 mg TRANSDERM. DAILY COUNTS INCLUDE 234 BEDS AT THE [facility] Last Admin: 02/22/20 11:44 Dose: 21 mg Documented by: Nicotine Polacrilex (Rugby Nicotine (Bkc)) 2 mg PO Q2H PRN PRN PRN Reason: Nicotine Craving Last Admin: 02/22/20 08:12 Dose: 2 mg Documented by: Nutritional Formula ([facility] - [place] Flavor) [facility] Last Admin: 02/22/20 08:09 Dose: 1 packet Documented by: Ondansetron HCl (Zofran) 4 mg IV Q8H PRN PRN PRN Reason: NAUSEA/VOMITING Last Admin: 02/17/20 06:53 Dose: 4 mg Documented by: Oxycodone HCl (Oxyir) 5 - 10 mg PO Q4H PRN PRN PRN Reason: Pain Score 4-10/10 Last Admin: 02/22/20 11:52 Dose: 10 mg Documented by: Sodium Chloride () 10 - 40 ml IV UD PRN PRN Reason: SALINE FLUSH Last Admin: 02/22/20 07:56 Dose: 10 ml Documented by: Venlafaxine HCl (Effexor Xr) 75 mg PO DAILY COUNTS INCLUDE 234 BEDS AT THE [facility] Last Admin: 02/22/20 11:44 Dose: 75 mg Documented by: Discharge Diet: Low fat/ Low Cholesterol, 1800 Calorie Control Diet, 2000 mg Sodium Diet Discharge Activity: Return to Normal Activity, - - You need complete smoking cessation to prevent recurrence and to help facilitate wound healing. Home Medications: Medications to take at Discharge Atorvastatin Calcium [Lipitor] 40 mg PO QHS 02/16/20 Dulaglutide [Trulicity] 0.75 mg SQ QWEEK 02/16/20 Ergocalciferol [Vitamin D] 1 cap PO QWEEK 02/16/20 metFORMIN HCl [Glucophage] 1,000 mg PO BID 02/16/20 Acetaminophen [Tylenol Tablet] 650 mg PO Q6H PRN PRN tab 02/22/20 Amox/Clavulanate Tablet [Augmentin Tablet] 875 mg PO Q12H #20 tab 02/22/20 Doxycycline [Vibramycin] 100 mg PO BID #20 cap 02/22/20 Insulin Glargine [Lantus SoloStar Pen] 28 units SUBCUT QHS pen 06/02/20 Lisinopril [Zestril] 5 mg PO DAILY #30 tab 02/22/20 Oxycodone [Oxyir] 5 mg PO Q4H PRN PRN 3 Days #18 tab 02/22/20 Venlafaxine XR [Effexor Xr] 75 mg PO DAILY #30 cap 02/22/20 Following Prescrptions Were Given to Patient: Amox/Clavulanate Tablet [Augmentin Tablet] 875 mg PO Q12H #20 tab Transmission Status: Received by [address] Venlafaxine XR [Effexor Xr] 75 mg PO DAILY #30 cap Transmission Status: Received by [address] Oxycodone [Oxyir] 5 mg PO Q4H PRN PRN 3 Days #18 tab PRN Reason: Pain Score 6-10/10 Transmission Status: Received by [address] Doxycycline [Vibramycin] 100 mg PO BID #20 cap Transmission Status: Received by [address] Lisinopril [Zestril] 5 mg PO DAILY #30 tab Transmission Status: Received by [address] Primary Care Physician: Amanda Wilkes MD [Primary Care Provider] - Please follow up with your Primary Care Physician in: 1-2 weeks Please Follow Up With: Gibson Asencio MD When: 1-2 weeks Disposition: Home with Home Health Minutes spent on discharge:: 35 Patient Condition:: Stable Medical Necessity - Tobacco Use Smoking Status: Current some day smoker Tobacco Use: Cigarettes Meaningful Use Info Meaningful Use Diagnoses (Choose all that apply): None applicable <Jr Krishna - Last Filed: 02/22/20 14:09> Discharge Date and Diagnosis - Secondary Discharge Diagnosis Chronic Problems: Chronic Problems Abdominal panniculus, symptomatic (Chronic) Smoker (Chronic) Obesity (Chronic) Hidradenitis (Chronic) Type 2 diabetes mellitus (Chronic) Hyperlipidemia (Chronic) Hypertension (Chronic) Hospital Course and Treatment Consultations 02/19/20 19:08 Consult: Onc/Wound/pest control service sales agent Routine Comment: Reason for Consult:: wound dressing Summary of Care Provided: This patient was seen in conjunction with Matthias KEY. I have independently interviewed and examined the patient and reviewed pertinent history, examination findings, laboratory and plan of management. I have reviewed the note and agree with the documented findings with the few additional points. In brief, patient is admitted for left inguinal region hidradenitis abscess involving left lateral abdominal wall skin crease, necrotizing soft tissue infection/deep tissue infection. Patient on broad-spectrum antibiotic vancomycin and Zosyn. Dr. Asencio is consulted. Patient had excisional debridement of skin, subcutaneous tissue and fascia for necrotizing deep tissue infection and drainage of abscess. Preliminary wound culture from 02/18 shows gram-positive sal 2+. Surgical tissue culture from 02/20 are still pending with Gram stain showing no growth. Discussed with ID. Patient is discharged on 10 days of Augmentin and doxycycline with follow-up with wound care center and Dr. Asencio in 1 week. Patient has poorly controlled diabetes mellitus type 2 with A1c 11.7%. While in the hospital blood sugar was controlled, last Accu-Chek glucose 133. Advised to follow-up PCP and pressure sealer and tester. Patient has other chronic comorbidities which include morbid obesity, hypertension, dyslipidemia and depression. I have discussed my assessment with Matthias KEY and orders have been reviewed. [] Discharge medication reconciliation done. Discharge follow-up instructions completed. Discharge process discussed with the patient and all questions were answered to patient's satisfaction. Total time spent, exact 35 minutes on discharge meds reconciliation, examination, coordination of care with nurses and ancillary staff, review of imaging and blood test and discussion with the patient on follow-up instructions Objective: In the morning patient had difficulty in voiding urine with retention of urine. Patient had bowel movement yesterday. No fever or chills. - Physical Exam Vitals/I&O's: Vital Signs Temp Pulse Resp BP Pulse Ox 97.8 F 58 L 18 165/102 H 94 02/22/20 07:58 02/22/20 07:58 02/22/20 07:58 02/22/20 07:58 02/22/20 07:58 Oxygen Flow Rate (L/min) 2 Oxygen Delivery Method Room Air Weight: 325 lb 0.017 oz Body Mass Index (BMI) 49.4 Intake and Output for Last 24 Hours 02/20/20 02/21/20 02/22/20 23:59 23:59 23:59 Intake Total 2550 / 2550 485 / 485 Balance 2550 / 2550 485 / 485 General: Alert, Oriented x3, Cooperative HEENT: Atraumatic, PERRLA, EOMI, Normocephalic Neck: Supple, No JVD, Negative Carotid Bruits Lungs: Clear to auscultation, Normal air movement Cardiovascular: Regular rate, Regular Rhythm, Normal S1, Normal S2, No murmurs Abdomen: Bowel Sounds Present, Soft, Non Tender, Obese Extremities: No edema, Capillary Refill Less than 3 Seconds Skin: Ulcer/ Wound - Surgical debridement wound over left groin/inguinal region. Chronic hidradenitis scar over right inguinal region. Musculoskeletal: No Tenderness to Palpation of Joints or Extremities, No Muscle Wasting Neurological: Cranial nerves II-XII grossly intact, Deep Tendon Reflexes 2+/4 and Symmetrical, Neuro grossly intact Psych/Mental Status: Normal Affect, Appropriate Microbiology Past 72 Hours 02/19/20 08:53 Wound - Abdominal Gram Stain - Final 02/19/20 08:53 Wound - Abdominal Wound Culture - Preliminary Gram positive sal 02/21/20 Unknown Tissue - Abdominal Gram Stain - Final 02/21/20 Unknown Tissue - Abdominal Wound Culture - Preliminary No growth-Final to follow 02/16/20 13:15 Blood Culture (Wb) - Right Forearm Blood Culture - Final No growth in 5 days. 02/16/20 13:20 Blood Culture (Wb) - Right Hand Blood Culture - Final No growth in 5 days. 02/19/20 13:45 Mucosa - Nasopharyngeal Coronavirus COVID-19 PCR - Final Laboratory Results 02/21/20 14:32: POC Glucose 143 H 02/21/20 16:59: POC Glucose 123 H 02/21/20 22:12: POC Glucose 152 H 02/22/20 05:15: WBC 13.6 H, RBC 4.64, Hgb 13.5, Hct 42.1, MCV 90.7, MCH 29.1, MCHC 32.1, RDW Std Deviation 41.7, RDW Coeff of Violeta 12.5, Plt Count 318, MPV 10.9, Immature Gran % (Auto) 0.700, Neut % (Auto) 60.5, Lymph % (Auto) 28.8, [place] % (Auto) 7.0, Eos % (Auto) 2.4, Baso % (Auto) 0.6, Absolute Neuts (auto) 8.2 H, Absolute Lymphs (auto) 3.93, Nucleated RBC % 0 02/22/20 05:15: Sodium 136, Potassium 4.1, Chloride 100, Carbon Dioxide 29.0, Anion Gap 7, BUN 11, Creatinine 0.61, Estim Creat Clear Calc 128.61, Est GFR (MDRD) Af Amer 143, Est GFR (MDRD) Non-Af 118, BUN/Creatinine Ratio 18.1, Glucose 133 H, Calcium 8.6, Prealbumin 10.8 L 02/22/20 08:00: POC Glucose 146 H 02/22/20 11:54: POC Glucose 148 H Current Medications Acetaminophen (Tylenol) 650 mg PO Q6H PRN PRN PRN Reason: Pain or Fever Atorvastatin Calcium (Lipitor) 40 mg PO QHS COUNTS INCLUDE 234 BEDS AT [facility] Last Admin: 02/21/20 22:10 Dose: 40 mg Documented by: Dextrose (D50w Syringe) 0 gm IV X1 PRN; Protocol PRN Reason: Hypoglycemia Diazepam (Valium) 5 mg PO 4X/DAY PRN PRN PRN Reason: SPASMS Enoxaparin Sodium (Lovenox) 40 mg SC DAILY@0600 COUNTS INCLUDE 234 BEDS AT [facility] Last Admin: 02/22/20 06:00 Dose: 40 mg Documented by: Glucagon () 1 mg IM .X1 PRN PRN Reason: Hypoglycemia Hydromorphone HCl (Dilaudid Inj) 1 mg IV Q3H PRN PRN PRN Reason: Pain Score 6-10/10 Last Admin: 02/22/20 07:55 Dose: 1 mg Documented by: Sodium Chloride () 250 mls @ 15 mls/hr IV .[id number] PRN PRN Reason: Saline Flush Last Infusion: 02/21/20 15:21 Dose: Infused Documented by: Sodium Chloride () 250 mls @ 15 mls/hr IV .[id number] PRN PRN Reason: Additional IVPB Infusion Piperacillin Sod/Tazobactam (Sod 3.375 gm/ Sodium Chloride) 50 mls @ 12.5 mls/hr IV Q8 COUNTS INCLUDE 234 BEDS AT [facility] Last Infusion: 02/22/20 10:00 Dose: Infused Documented by: Sodium Chloride () 1,000 mls @ 100 mls/hr IV .Q10H COUNTS INCLUDE 234 BEDS AT [facility] Last Infusion: 02/22/20 06:01 Dose: 0 mls/hr Documented by: Insulin Glargine (Lantus (Bkc)) 28 units SC QHS COUNTS INCLUDE 234 BEDS AT [facility] Last Admin: 02/21/20 22:10 Dose: 28 units Documented by: Insulin Human Lispro (Humalog Kwikpen ([facility])) 0 unit SC TIDAC COUNTS INCLUDE 234 BEDS AT [facility]; Protocol Last Admin: 02/22/20 12:04 Dose: Not Given Documented by: Insulin Human Lispro (Humalog Kwikpen ([facility])) 5 unit SC LUNCH COUNTS INCLUDE 234 BEDS AT [facility] Last Admin: 02/22/20 12:22 Dose: 5 units Documented by: Insulin Human Lispro (Humalog Kwikpen ([facility])) 5 unit SC BREAKFAST COUNTS INCLUDE 234 BEDS AT [facility] Last Admin: 02/22/20 08:11 Dose: 5 units Documented by: Insulin Human Lispro (Humalog Kwikpen ([facility])) 8 unit SC DINNER COUNTS INCLUDE 234 BEDS AT [facility] Last Admin: 02/21/20 17:48 Dose: 8 units Documented by: Lisinopril (Zestril) 5 mg PO DAILY COUNTS INCLUDE 234 BEDS AT [facility] Last Admin: 02/22/20 11:44 Dose: 5 mg Documented by: Metformin HCl (Glucophage) 1,000 mg PO BIDCM COUNTS INCLUDE 234 BEDS AT [facility] Last Admin: 02/22/20 08:09 Dose: 1,000 mg Documented by: Nicotine (Nicoderm Cq ([facility])) 21 mg TRANSDERM. DAILY COUNTS INCLUDE 234 BEDS AT [facility] Last Admin: 02/22/20 11:44 Dose: 21 mg Documented by: Nicotine Polacrilex (Rugby Nicotine ([facility])) 2 mg PO Q2H PRN PRN PRN Reason: Nicotine Craving Last Admin: 02/22/20 08:12 Dose: 2 mg Documented by: Nutritional Formula (Juan - [place] Flavor) 1 packet PO BIDCM COUNTS INCLUDE 234 BEDS AT [facility] Last Admin: 02/22/20 08:09 Dose: 1 packet Documented by: Ondansetron HCl (Zofran) 4 mg IV Q8H PRN PRN PRN Reason: NAUSEA/VOMITING Last Admin: 02/17/20 06:53 Dose: 4 mg Documented by: Oxycodone HCl (Oxyir) 5 - 10 mg PO Q4H PRN PRN PRN Reason: Pain Score 4-10/10 Last Admin: 02/22/20 11:52 Dose: 10 mg Documented by: Sodium Chloride () 10 - 40 ml IV UD PRN PRN Reason: SALINE FLUSH Last Admin: 02/22/20 07:56 Dose: 10 ml Documented by: Venlafaxine HCl (Effexor Xr) 75 mg PO DAILY COUNTS INCLUDE 234 BEDS AT [facility] Last Admin: 02/22/20 11:44 Dose: 75 mg Documented by: Inpatient E&M: [id number] SNF Disch >30 Min
--- NOTE | 2020-02-22 14:44 | NURSING ---
Pt switched over to the home VAC. reviewed alarms, leaks, etc. with patient. proof of delivery form signed and faxed back to [facility]. Pt denies further questions or concerns at this time.
[2020-02-22 15:40] VITALS: BP 158/89; PULSE 68; RESP 18; TEMP 36.7; O2SAT 97
--- NOTE | 2020-02-22 23:29 | PN.SURG_ITS ---
Subjective: Postop #1 Patient is resting comfortably. VAC applied today. - Physical Exam Vitals/I&O's: Vital Signs Temp Pulse Resp BP Pulse Ox 98.0 F 68 18 158/89 H 97 02/22/20 15:40 02/22/20 15:40 02/22/20 15:40 02/22/20 15:40 02/22/20 15:40 Oxygen Flow Rate (L/min) 2 Oxygen Delivery Method Room Air Weight: 325 lb 0.017 oz Body Mass Index (BMI) 49.4 Intake and Output for Last 24 Hours 02/20/20 02/21/20 02/22/20 23:59 23:59 23:59 Intake Total 2550 / 2550 1999. 935 / 935 Output Total 800 / 800 Balance 2550 / 2550 135 / 135 General: Alert, Oriented x3 HEENT: PERRLA, EOMI Oral: Moist Mucosa Neck: Supple Abdomen: Soft, Non-Distended Skin: Ulcer/ Wound - left lateral abdominal wall skin crease wound and left inguinal wound are stable. No active bleeding seen. VAC placed today. Neurological: Cranial nerves II-XII grossly intact Psych/Mental Status: Normal Affect, Appropriate Microbiology Past 72 Hours 02/19/20 08:53 Wound - Abdominal Gram Stain - Final 02/19/20 08:53 Wound - Abdominal Wound Culture - Preliminary Gram positive sal 02/21/20 Unknown Tissue - Abdominal Gram Stain - Final 02/21/20 Unknown Tissue - Abdominal Wound Culture - Preliminary No growth-Final to follow 02/16/20 13:15 Blood Culture (Wb) - Right Forearm Blood Culture - Final No growth in 5 days. 02/16/20 13:20 Blood Culture (Wb) - Right Hand Blood Culture - Final No growth in 5 days. Laboratory Results 02/22/20 05:15: WBC 13.6 H, RBC 4.64, Hgb 13.5, Hct 42.1, MCV 90.7, MCH 29.1, MCHC 32.1, RDW Std Deviation 41.7, RDW Coeff of Violeta 12.5, Plt Count 318, MPV 10.9, Immature Gran % (Auto) 0.700, Neut % (Auto) 60.5, Lymph % (Auto) 28.8, [place] % (Auto) 7.0, Eos % (Auto) 2.4, Baso % (Auto) 0.6, Absolute Neuts (auto) 8.2 H, Absolute Lymphs (auto) 3.93, Nucleated RBC % 0 02/22/20 05:15: Sodium 136, Potassium 4.1, Chloride 100, Carbon Dioxide 29.0, Anion Gap 7, BUN 11, Creatinine 0.61, Estim Creat Clear Calc 128.61, Est GFR (MDRD) Af Amer 143, Est GFR (MDRD) Non-Af 118, BUN/Creatinine Ratio 18.1, Glucose 133 H, Calcium 8.6, Prealbumin 10.8 L 02/22/20 08:00: POC Glucose 146 H 02/22/20 11:54: POC Glucose 148 H Medical Necessity - Tobacco Use Smoking Status: Current some day smoker Tobacco Use: Cigarettes Assessment/Plan All Active Problems Abscess of left groin (Acute) Panniculitis (Acute) Necrotizing soft tissue infection (Acute) Abdominal wall abscess (Acute) 1. Draining hidradenitis abscess left lateral abdominal wall skin crease with extension into inguinal area. 2. Necrotizing soft tissue infection. 3. Hidradenitis. 4. Diabetes mellitus. 5. Obesity. 6. Smoker. 7. s/p I&D of hidradenitis abscess. 8. Abdominal panniculus with panniculitis. Continue Zosyn antibiotics. The wound culture is negative thus far. VAC applied today. To be changed three times per week at 150 mmHg continuous suction. After discharge, will followup at the [facility]. If there is a plateau in the healing process, can then proceed with delayed closure with skin grafting. However, before proceeding with an elective skin graft in the future, her HgbA1c needs to be less than 8. At present it is 11.7. Anticipate increased metabolic demands from the infection and surgery. Prealbumin was 10.8. Encourage nutritional supplementation with protein to help the healing process. After discharge, will followup at the Wound Center. Encouraged patient to stop smoking as it may have deleterious effects on wound healing.
== END 2020-02-22 15:57 | disposition home health service (06) | DRG 854 ==
LOC: ED 12:10 → MS3 17:10
PROVIDERS: Anesthesiology; Internal Medicine; Physician Assistant; Surgery; Admitting Provider Internal Medicine; Emergency Provider Emergency Medicine; PCP Internal Medicine; Visit Provider Internal Medicine
PROC: 0JB80ZZ Excision of Abdomen Subcutaneous Tissue and Fascia, Open Approach (ICD-10-PCS; principal; 2020-02-21 12:45)
DX: A41.9 Sepsis, unspecified organism (principal); Z68.42 Body mass index [BMI] 45.0-49.9, adult; E11.52 Type 2 diabetes mellitus with diabetic peripheral angiopathy with gangrene; L03.311 Cellulitis of abdominal wall; L03.314 Cellulitis of groin; L02.214 Cutaneous abscess of groin; L02.211 Cutaneous abscess of abdominal wall; L73.2 Hidradenitis suppurativa; E66.01 Morbid (severe) obesity due to excess calories; E11.65 Type 2 diabetes mellitus with hyperglycemia; I10 Essential (primary) hypertension; E78.5 Hyperlipidemia, unspecified; F32.9 Major depressive disorder, single episode, unspecified; B96.89 Other specified bacterial agents as the cause of diseases classified elsewhere; F17.210 Nicotine dependence, cigarettes, uncomplicated; Z91.11 Patient's noncompliance with dietary regimen; E88.81 Metabolic syndrome and other insulin resistance; M79.3 Panniculitis, unspecified
CPT/HCPCS: 36415; 74177; 80048; 80053; 80061; 80202; 81001; 81025; 82043; 82570; 82962; 83036; 83735; 84134; 85025; 85652; 86140; 87040; 87070; 87075; 87077; 87102; 87205; 87206; 87635; 87640; 88304; 88312; 93005; 97802; 99284; G2023; J7030; J7040; J7050; J7120; Q9967; A4216; J2405; U0004

== ENCOUNTER 2020-03-20 11:00 | Outpatient (RCR) | payer OTHER, SELFPAY ==
[2020-02-21 11:29] VITALS: BMI 49.4
[2020-03-06 11:37] VITALS: BP 134/80; PULSE 91; RESP 22; TEMP 36.2; BMI 47.2
--- NOTE | 2020-03-06 14:46 | PCM.WC.PN ---
Type of Wound Date of Service: 03/06/20 Chief Complaint: Open hidradenitis wound left lateral abdominal wall and left inguinal area. History of Wound: Surgery 02/21/20 - 1. Surgical preparation left abdominal wall skin crease with excisional debridement skin, subcutaneous tissue, and fascia for necrotizing soft tissue hidradenitis abscess infection. 2. Surgical preparation left inguinal area with excision necrotizing soft tissue hidradenitis abscess infection. Wound care - VAC. Operative culture - Prevotella bivia. She was treated with Augmentin and Doxycycline and has finished them. Prealbumin from 02/22/20 was 10.8. Encourage nutritional supplementation with protein to help the healing process. Today she denies fever. Her appetite is ok. Progress of Wound: Improved. - Physical Exam Vital Signs Temp Pulse Resp BP 97.2 F L 91 22 H 134/80 H 03/06/20 11:37 03/06/20 11:37 03/06/20 11:37 03/06/20 11:37 Wound Measurements and Assessment WC - Nurse 1 - General Ulcer Measurement Start: 03/06/20 11:32 Freq: Status: Active Protocol: Activity Type Activity Date Activity User E-Sign Co-Sign Detail Recorded Client Recorded Date Recorded By Document 03/06/20 11:37 DL [id number] 03/06/20 11:57 DL 03/06/20 11:37 Wound Center Nurse 1 [Ulcer Assessment] #1 L LOWER ABD QUAD POST OP -Combined with other wound No -Current Size (cm) - Length 35 -Current Size (cm) - Width 6 -Current Size (cm) - Depth 6 -Total Square Cm 210 -Date of Last Picture (Recall this 03/06/20 field) -Photo Taken Yes -Epithelialization None Present -Tunneling No -Undermining/Tunneling No -Circular Undermining No -Wound Margin Distinct, Outline Attached -Granulation Amt Large (67-100%) -Granulation Quality Red -Slough/Fibrin Yes -Necrosis Amt Small (1-33%) -Necrotic Tissue Type Adherent Slough -Texture (Beatrice-wound Skin Appearance) Assessed, Scarring -Moisture (Beatrice-wound Skin Appearance Assessed ) -Color (Beatrice-wound Skin Appearance) Assessed, Erythema -Temperature (Beatrice-wound Skin No Abnormality Appearance) (Pt Warm) -Tenderness on Palpation (Beatrice-wound Yes Skin Appearance) -Ulcer Cleansing SOAPY WATER -Foul Odor after Cleansing No -Anesthetic Used 4% Lidocaine Solution WC - Nurse 2 - General Ulcer CM Notes Start: 03/06/20 11:32 Freq: Status: Active Protocol: Activity Type Activity Date Activity User E-Sign Co-Sign Detail Recorded Client Recorded Date Recorded By Document 03/06/20 12:28 [id number] 03/06/20 12:29 03/06/20 12:28 Wound Center Nurse 2 [Procedure/Treatment] -Correct Patient No -Correct Side, Site, Position No -Correct Procedure No -Procedure Performed No -Wound/Ulcer Outcome Not Healed [See Physician Procedure note for Specifics] Pain Scale: 0-10 Numeric [Pain] -Is Patient Pain Free? Yes Debridement Note Post-Debridement Measurements/Treatment WC - Nurse 2 - General Ulcer CM Notes Start: 03/06/20 11:32 Freq: Status: Active Protocol: Activity Type Activity Date Activity User E-Sign Co-Sign Detail Recorded Client Recorded Date Recorded By Document 03/06/20 12:28 [id number] 03/06/20 12:29 03/06/20 12:28 Wound Center Nurse 2 #1 L LOWER ABD QUAD POST OP -Correct Patient No -Correct Side, Site, Position No -Correct Procedure No -Procedure Performed No -Wound/Ulcer Outcome Not Healed Pain Scale: 0-10 Numeric Is Patient Pain Free? Yes Wound debrided: #1 Left lateral abdominal wall and left inguinal area. Laterality: Left Wound Grade/Stage: 2. No debridement was completed today - she had recent surgery 02/21/20. Assessment/Plan Assessment: 1. Draining hidradenitis abscess left lateral abdominal wall skin crease. 2. Hidradenitis abscess left inguinal area. 3. Necrotizing soft tissue infection. 4. Hidradenitis. 5. Diabetes mellitus. 6. Obesity. 7. Smoker. 8. s/p I&D of hidradenitis abscess. 9. Abdominal panniculus with panniculitis. Plan: Continue the VAC to be changed three times per week at 150 mmHg continuous suction. She finished her Augmentin and Doxycycline for operative culture that showed Prevotella bivia. Prealbumin from 02/22/20 was 10.8. Encourage nutritional supplementation with protein to help the healing process. Followup 2 weeks. [id number]: [id number] Global Visit - ICD-10 - Z48.89, L02.211, L02.214, L73.2, M79.89, M79.3, E66.5, E66.9, E11.9, F17.200
--- NOTE | 2020-03-16 09:35 | WC ---
Call received from Kim from [facility] regarding strong odor from wound and vac. No redness, warmth or fever noted. Wound is beefy red and has decreased by 2cm. Nurse is washing wound with dial soap and water. Patient is still going thru one canister per day. Patient is also still working daily. Nurse did say she feels continuing with vac would be a better option than daily dressings. Patient is scheduled on 03/20/20 with Dulce Maria. One option after discussing updates with Dulce Maria Rogers INSULATION ESTIMATOR, would be to incorporate dakins solution with the cleaning of the ulcer and/or order silver granufoam. She was okay with either option. We will followup with this on Friday's appt.
[2020-03-20 10:58] VITALS: BP 167/93; PULSE 78; RESP 18; TEMP 35.9; BMI 47.2
--- NOTE | 2020-03-20 16:07 | PCM.WC.PN ---
(1) Abdominal wall abscess Status: Acute Current Visit: Yes Code(s): L02.211 - Cutaneous abscess of abdominal wall (2) Abdominal panniculus, symptomatic Status: Chronic Current Visit: Yes Code(s): E65 - Localized adiposity (3) Smoker Status: Chronic Current Visit: Yes Code(s): F17.200 - Nicotine dependence, unspecified, uncomplicated (4) Obesity Status: Chronic Current Visit: Yes Code(s): E66.9 - Obesity, unspecified (5) Hidradenitis Status: Chronic Current Visit: Yes Code(s): L73.2 - Hidradenitis suppurativa (6) Type 2 diabetes mellitus Status: Chronic Current Visit: Yes Code(s): E11.9 - Type 2 diabetes mellitus without complications (7) Abscess of left groin Status: Acute Current Visit: Yes Code(s): L02.214 - Cutaneous abscess of groin (8) Necrotizing soft tissue infection Status: Acute Current Visit: Yes Code(s): M79.89 - Other specified soft tissue disorders Type of Wound Date of Service: 03/20/20 Chief Complaint: Open hidradenitis wound left lateral abdominal wall and left inguinal area. History of Wound: Surgery 02/21/20 - 1. Surgical preparation left abdominal wall skin crease with excisional debridement skin, subcutaneous tissue, and fascia for necrotizing soft tissue hidradenitis abscess infection. 2. Surgical preparation left inguinal area with excision necrotizing soft tissue hidradenitis abscess infection. Wound care - VAC. She is having issues large amount of drainage and VAC remaining sealed. She also is experiencing strong odor. Will have her start wiping with Dakin's solution after washing it with soap and water at VAC dressing changes. IF she loses suction on the VAC, she is to do Dakin's moistened gauze dressing changes twice a day until home health can restart her VAC. Obtained wound cultures today 03/20/20. Depending on the results of the culture, it may necessitate treatment with antibiotics. Operative culture - Prevotella bivia. She was treated with Augmentin and Doxycycline and has finished them. Prealbumin from 02/22/20 was 10.8. Encourage nutritional supplementation with protein to help the healing process. Today she denies fever. Her appetite is ok. Progress of Wound: Stable. Increased biofilm in the base of the wound. Not sure if the foam dressing is getting packed into the base of the wound properly. - Physical Exam Vital Signs Temp Pulse Resp BP 96.6 F L 78 18 167/93 H 03/20/20 10:58 03/20/20 10:58 03/20/20 10:58 03/20/20 10:58 General: Alert, Oriented x3, Cooperative HEENT: Atraumatic Oral: Moist Mucosa Lungs: Normal air movement Cardiovascular: Regular rate Abdomen: Obese Extremities: Capillary Refill Less than 3 Seconds Skin: Ulcer/ Wound - Left lower abdominal wound. Increased slough and biofilm, especially at the base. There is a strong odor coming from the wound. There was some fat necrosis present. Wound Measurements and Assessment WC - Nurse 1 - General Ulcer Measurement Start: 03/06/20 11:32 Freq: Status: Active Protocol: Activity Type Activity Date Activity User E-Sign Co-Sign Detail Recorded Client Recorded Date Recorded By Document 03/20/20 10:58 [facility] [id number] 03/20/20 11:12 [facility] 03/20/20 10:58 Wound Center Nurse 1 [Ulcer Assessment] #1 L LOWER ABD QUAD POST OP -Combined with other wound No -Current Size (cm) - Length 6.4 -Current Size (cm) - Width 30.1 -Current Size (cm) - Depth 3 -Total Square Cm 192.64 -Photo Taken No -Epithelialization None Present -Tunneling No -Undermining/Tunneling Yes -Undermining/Tunneling Starts (O' 11 clock) -Undermining/Tunneling Ends (O'clock) 12 -Maximum Distance (cm) 4.5 -Circular Undermining No -Exudate Amt Large -Exudate Type Yellow/Green -Wound Margin Distinct, Outline Attached -Granulation Amt Large (67-100%) -Granulation Quality Red -Slough/Fibrin Yes -Necrosis Amt Small (1-33%) -Necrotic Tissue Type Adherent Slough -Texture (Beatrice-wound Skin Appearance) Assessed, Scarring -Moisture (Beatrice-wound Skin Appearance Assessed ) -Color (Beatrice-wound Skin Appearance) Assessed, Erythema -Temperature (Beatrice-wound Skin No Abnormality Appearance) (Pt Warm) -Tenderness on Palpation (Beatrice-wound Yes Skin Appearance) -Ulcer Cleansing soapy water -Foul Odor after Cleansing No -Anesthetic Used 4% Lidocaine Solution WC - Nurse 2 - General Ulcer CM Notes Start: 03/06/20 11:32 Freq: Status: Active Protocol: Activity Type Activity Date Activity User E-Sign Co-Sign Detail Recorded Client Recorded Date Recorded By Document 03/20/20 11:21 [id number] 03/20/20 11:33 03/20/20 11:21 Wound Center Nurse 2 [Procedure/Treatment] -Time 11:25 -Correct Patient Yes -Correct Side, Site, Position Yes -Correct Procedure Yes -Procedure Performed Yes -Type of Procedure Debridement -Clinical Debridement Subcutaneous -Post Debridement Size (cm) - Length 7.5 -Post Debridement Size (cm) - Width 29.5 -Post Debridement Size (cm) - Depth 3.4 -Total Square Cm 221.25 -Wound/Ulcer Outcome Not Healed -Ulcer Cleansing Rinsed/ Irrigated with Saline -Foul Odor after Cleansing No -Bioengineered Tissue No -Bleeding Controlled with Pressure -Offloading No -Treatment Response Procedure Tolerated Well [See Physician Procedure note for Specifics] Pain Scale: 0-10 Numeric [Pain] -Is Patient Pain Free? Yes Musculoskeletal: No Tenderness to Palpation of Joints or Extremities Neurological: Neuro grossly intact Psych/Mental Status: Normal Affect, Appropriate Debridement Note Post-Debridement Measurements/Treatment WC - Nurse 2 - General Ulcer CM Notes Start: 03/06/20 11:32 Freq: Status: Active Protocol: Activity Type Activity Date Activity User E-Sign Co-Sign Detail Recorded Client Recorded Date Recorded By Document 03/06/20 12:28 [id number] 03/06/20 12:29 Document 03/20/20 11:21 [id number] 03/20/20 11:33 03/06/20 03/20/20 12:28 11:21 Wound Center Nurse 2 #1 L LOWER ABD QUAD POST OP -Time 11:25 -Correct Patient No Yes -Correct Side, Site, Position No Yes -Correct Procedure No Yes -Procedure Performed No Yes -Type of Procedure Debridement -Clinical Debridement Subcutaneous -Post Debridement Size (cm) - Length 7.5 -Post Debridement Size (cm) - Width 29.5 -Post Debridement Size (cm) - Depth 3.4 -Total Square Cm 221.25 -Wound/Ulcer Outcome Not Healed Not Healed -Ulcer Cleansing Rinsed/ Irrigated with Saline -Foul Odor after Cleansing No -Bioengineered Tissue No -Bleeding Controlled with Pressure -Offloading No -Treatment Response Procedure Tolerated Well Pain Scale: 0-10 Numeric Is Patient Pain Free? Yes Yes Wound debrided: Lower abdomen wound Laterality: Left Type of Debridement: Excisional debridement Anesthesia Used: 5% Lidocaine Gel Depth: Down to and including healthy tissue, in the subcutaneous layer Percentage of wound debrided: 100 Instrument Used: 7mm curette Tissue Removed: Subcutaneous tissue and slough, fat necrosis present and removed Severity: Fat Layer Exposed Amount of bleeding with debridement: Mild Bleeding Controlled with: Pressure, Compression and gauze Patient tolerated procedure well Assessment/Plan Active Problems Abscess of left groin (Acute) Panniculitis (Acute) Abdominal panniculus, symptomatic (Chronic) Smoker (Chronic) Obesity (Chronic) Necrotizing soft tissue infection (Acute) Abdominal wall abscess (Acute) Hidradenitis (Chronic) Type 2 diabetes mellitus (Chronic) Assessment: 1. Draining hidradenitis abscess left lateral abdominal wall skin crease. 2. Hidradenitis abscess left inguinal area. 3. Necrotizing soft tissue infection. 4. Hidradenitis. 5. Diabetes mellitus. 6. Obesity. 7. Smoker. 8. s/p I&D of hidradenitis abscess. 9. Abdominal panniculus with panniculitis. Plan: Continue the VAC to be changed three times per week at 150 mmHg continuous suction. She is having issues large amount of drainage and VAC remaining sealed. She also is experiencing strong odor. Will have her start wiping with Dakin's solution after washing it with soap and water at VAC dressing changes. IF she loses suction on the VAC, she is to do Dakin's moistened gauze dressing changes twice a day until home health can restart her VAC. Stressed importance of getting the foam into the base of the wound to help prevent further tunneling. Obtained wound cultures today 03/20/20. Depending on the results of the culture, it may necessitate treatment with antibiotics. She finished her Augmentin and Doxycycline for operative culture that showed Prevotella bivia. Prealbumin from 02/22/20 was 10.8. Encourage nutritional supplementation with protein to help the healing process. Followup 1 week. 111xxx-113xx: [id number] Global Visit
== END 2020-03-21 23:59 ==
LOC: WC 11:00
PROVIDERS: PCP Internal Medicine; Visit Provider Surgery
DX: L73.2 Hidradenitis suppurativa (principal); E11.52 Type 2 diabetes mellitus with diabetic peripheral angiopathy with gangrene; I96 Gangrene, not elsewhere classified; L02.214 Cutaneous abscess of groin; L02.211 Cutaneous abscess of abdominal wall; E65 Localized adiposity; M79.3 Panniculitis, unspecified; E66.9 Obesity, unspecified; F17.200 Nicotine dependence, unspecified, uncomplicated
CPT/HCPCS: 11042; 11045; 87070; 87075; 87077; 87186; 87205; 97606; 99213; G0463

== ENCOUNTER 2020-04-10 10:30 | Outpatient (RCR) | payer OTHER, SELFPAY ==
[2020-03-22 00:35] VITALS: BP 167/93; PULSE 78; RESP 18; TEMP 35.9
[2020-03-27 10:12] VITALS: BP 153/82; PULSE 75; RESP 18; TEMP 35.2; BMI 47.2
--- NOTE | 2020-03-27 12:21 | PCM.WC.PN ---
(1) Ulcer of abdomen wall Status: Chronic Qualifiers: Non-pressure ulcer stage: with fat layer exposed Qualified Code(s): L98.492 - Non-pressure chronic ulcer of skin of other sites with fat layer exposed Code(s): L98.499 - Non-pressure chronic ulcer of skin of other sites with unspecified severity Comment: Left lower abdomen (2) Ulcer of left groin Status: Chronic Qualifiers: Non-pressure ulcer stage: with fat layer exposed Qualified Code(s): L98.492 - Non-pressure chronic ulcer of skin of other sites with fat layer exposed Code(s): L98.499 - Non-pressure chronic ulcer of skin of other sites with unspecified severity (3) Abdominal panniculus, symptomatic Status: Chronic Code(s): E65 - Localized adiposity (4) Smoker Status: Chronic Code(s): F17.200 - Nicotine dependence, unspecified, uncomplicated (5) Obesity Status: Chronic Code(s): E66.9 - Obesity, unspecified (6) Necrotizing soft tissue infection Status: Acute Code(s): M79.89 - Other specified soft tissue disorders (7) Hidradenitis Status: Chronic Code(s): L73.2 - Hidradenitis suppurativa Type of Wound Date of Service: 03/27/20 Chief Complaint: Open hidradenitis wound left lateral abdominal wall and left inguinal area. History of Wound: Surgery 02/21/20 - 1. Surgical preparation left abdominal wall skin crease with excisional debridement skin, subcutaneous tissue, and fascia for necrotizing soft tissue hidradenitis abscess infection. 2. Surgical preparation left inguinal area with excision necrotizing soft tissue hidradenitis abscess infection. Wound care - Wound VAC 150 mmHg suction. She wiping with Dakin's solution after washing it with soap and water at VAC dressing changes which is helping with the odor. IF she loses suction on the VAC, she is to do Dakin's moistened gauze dressing changes twice a day until home health can restart her VAC. Obtained wound cultures on 03/20/20. which were positive for Staphylococcus aureas, Step aninosus, Provotella bivia and Clostridium group. She is being treated with Augmentin and probiotic. Operative culture - Prevotella bivia. She was treated with Augmentin and Doxycycline and has finished them. Prealbumin from 02/22/20 was 10.8. Encourage nutritional supplementation with protein to help the healing process. Today she denies fever. Her appetite is ok. Progress of Wound: Improved now that the foam is being placed in the base of the ulcer. - Physical Exam Vital Signs Temp Pulse Resp BP 95.4 F L 75 18 153/82 H 03/27/20 10:12 03/27/20 10:12 03/27/20 10:12 03/27/20 10:12 General: Alert, Oriented x3, Cooperative HEENT: Atraumatic Oral: Moist Mucosa Lungs: Normal air movement Cardiovascular: Regular rate Abdomen: Soft, Obese Extremities: Capillary Refill Less than 3 Seconds Skin: Ulcer/ Wound - Left lower abdomen and left groin/inguinal ulcer which is beefy pink and has much less biofilm this week and no odor. Wound Measurements and Assessment WC - Nurse 1 - General Ulcer Measurement Start: 03/27/20 10:11 Freq: Status: Active Protocol: Activity Type Activity Date Activity User E-Sign Co-Sign Detail Recorded Client Recorded Date Recorded By Document 03/27/20 10:12 MW [id number] 03/27/20 10:25 MW 03/27/20 10:12 Wound Center Nurse 1 [Ulcer Assessment] #1 L LOWER ABD QUAD POST OP -Combined with other wound No -Current Size (cm) - Length 5.0 -Current Size (cm) - Width 25.0 -Current Size (cm) - Depth 4.0 -Total Square Cm 125.00 -Photo Taken No -Epithelialization Small 1-33% -Tunneling No -Undermining/Tunneling No -Circular Undermining No -Exudate Amt Large -Exudate Type Serosanguineous -Wound Margin Distinct, Outline Attached -Granulation Amt Large (67-100%) -Granulation Quality Red -Slough/Fibrin Yes -Necrosis Amt Small (1-33%) -Necrotic Tissue Type Eschar -Structure Exposed N/A -Texture (Beatrice-wound Skin Appearance) Assessed, Scarring -Moisture (Beatrice-wound Skin Appearance No Abnormality, ) Assessed -Color (Beatrice-wound Skin Appearance) No Abnormality, Assessed -Temperature (Beatrice-wound Skin No Abnormality Appearance) (Pt Warm) -Tenderness on Palpation (Beatrice-wound Yes Skin Appearance) -Ulcer Cleansing soap and water -Foul Odor after Cleansing No -Anesthetic Used 5% Lidocaine Gel [Edema Assessment] -Lower Limb Edema Present No WC - Nurse 2 - General Ulcer CM Notes Start: 03/27/20 10:11 Freq: Status: Active Protocol: Activity Type Activity Date Activity User E-Sign Co-Sign Detail Recorded Client Recorded Date Recorded By Document 03/27/20 12:16 RANDI [id number] 03/27/20 12:17 PL 03/27/20 12:16 Wound Center Nurse 2 [Procedure/Treatment] #1 L LOWER ABD QUAD POST OP -Time 10:42 -Correct Patient Yes -Correct Side, Site, Position Yes -Correct Procedure Yes -Procedure Performed Yes -Type of Procedure Debridement -Clinical Debridement Muscle -Post Debridement Size (cm) - Length 6.5 -Post Debridement Size (cm) - Width 26.3 -Post Debridement Size (cm) - Depth 3.0 -Total Square Cm 170.95 -Wound/Ulcer Outcome Not Healed -Ulcer Cleansing Rinsed/ Irrigated with Saline -Foul Odor after Cleansing No -Bleeding Controlled with Pressure -Treatment Response Procedure Tolerated Well [See Physician Procedure note for Specifics] Pain Scale: 0-10 Numeric [Pain] -Is Patient Pain Free? Yes Musculoskeletal: No Tenderness to Palpation of Joints or Extremities Neurological: Cranial nerves II-XII grossly intact Psych/Mental Status: Normal Affect, Appropriate Debridement Note Post-Debridement Measurements/Treatment WC - Nurse 2 - General Ulcer CM Notes Start: 03/27/20 10:11 Freq: Status: Active Protocol: Activity Type Activity Date Activity User E-Sign Co-Sign Detail Recorded Client Recorded Date Recorded By Document 03/27/20 12:16 [email or web address] [id number] 03/27/20 12:17 03/27/20 12:16 Wound Center Nurse 2 #1 L LOWER ABD QUAD POST OP -Time 10:42 -Correct Patient Yes -Correct Side, Site, Position Yes -Correct Procedure Yes -Procedure Performed Yes -Type of Procedure Debridement -Clinical Debridement Muscle -Post Debridement Size (cm) - Length 6.5 -Post Debridement Size (cm) - Width 26.3 -Post Debridement Size (cm) - Depth 3.0 -Total Square Cm 170.95 -Wound/Ulcer Outcome Not Healed -Ulcer Cleansing Rinsed/ Irrigated with Saline -Foul Odor after Cleansing No -Bleeding Controlled with Pressure -Treatment Response Procedure Tolerated Well Pain Scale: 0-10 Numeric Is Patient Pain Free? Yes Wound debrided: lower abdomen, left groin/inguinal ulcer Laterality: Left Type of Debridement: Excisional debridement Anesthesia Used: 5% Lidocaine Gel Depth: Down to and including healthy tissue, in the subcutaneous layer, to muscle Percentage of wound debrided: 100 Instrument Used: 7mm curette Tissue Removed: Subcutaneous tissue and slough into the muscle Severity: Fat Layer Exposed Amount of bleeding with debridement: Mild Bleeding Controlled with: Pressure, Compression and gauze Patient tolerated procedure well Assessment/Plan Assessment: 1. Draining hidradenitis abscess left lateral abdominal wall skin crease. 2. Hidradenitis abscess left inguinal area. 3. Necrotizing soft tissue infection. 4. Hidradenitis. 5. Diabetes mellitus. 6. Obesity. 7. Smoker. 8. s/p I&D of hidradenitis abscess. 9. Abdominal panniculus with panniculitis. Plan: Continue the VAC to be changed three times per week at 150 mmHg continuous suction. She is wiping the ulcer with Dakin's solution after washing it with soap and water at VAC dressing changes. IF she loses suction on the VAC, she is to do Dakin's moistened gauze dressing changes twice a day until home health can restart her VAC. Stressed importance of getting the foam into the base of the wound to help prevent further tunneling. The ulcer is showing much improvement this week. Obtained wound cultures on 03/20/20 which were positive for Staphylococcus aureus, Strep anginosus, Provotella bivia and CLostridium group. She was started on Augmentin and probiotic. She finished her Augmentin and Doxycycline for operative culture that showed Prevotella bivia. Prealbumin from 02/22/20 was 10.8. Encourage nutritional supplementation with protein to help the healing process. Followup 2 weeks. 111xxx-113xx: [id number] Nicole musc/fascia 20 sq cm/< Add On Codes: [id number] Nicole musc/fascia add-on - x8
[2020-04-10 10:51] VITALS: BP 152/87; PULSE 74; RESP 18; TEMP 36.1; BMI 47.2
--- NOTE | 2020-04-10 16:30 | PN.PCM_ITS ---
Type of Wound Date of Service: 04/10/20 Chief Complaint: Nonhealing hidradenitis ulcer left lateral abdominal wall and left inguinal area. History of Wound: Surgery 02/21/20 - 1. Surgical preparation left abdominal wall skin crease with excisional debridement skin, subcutaneous tissue, and fascia for necrotizing soft tissue hidradenitis abscess infection. 2. Surgical preparation left inguinal area with excision necrotizing soft tissue hidradenitis abscess infection. Wound care - VAC. Operative culture - Prevotella bivia. She was treated with Augmentin and Doxycycline and has finished them. Another wound culture was done on 03/20/20. It was positive for Staphylococcus aureus, Streptococcus anginosus, Prevotella bivia, and Clostridium group. She was placed on Augmentin and will continue them until 05/01/20. Prealbumin from 02/22/20 was 10.8. Encourage nutritional supplementation with protein to help the healing process. Today she denies fever. Her appetite is ok. Progress of Wound: Improved. - Physical Exam Vital Signs Temp Pulse Resp BP 96.9 F L 74 18 152/87 H 04/10/20 10:51 04/10/20 10:51 04/10/20 10:51 04/10/20 10:51 Wound Measurements and Assessment WC - Nurse 1 - General Ulcer Measurement Start: 03/27/20 10:11 Freq: Status: Active Protocol: Activity Type Activity Date Activity User E-Sign Co-Sign Detail Recorded Client Recorded Date Recorded By Document 04/10/20 10:51 [facility] [id number] 04/10/20 10:57 BMF 04/10/20 10:51 Wound Center Nurse 1 [Ulcer Assessment] #1 L LOWER ABD QUAD POST OP -Combined with other wound No -Current Size (cm) - Length 4.9 -Current Size (cm) - Width 22.2 -Current Size (cm) - Depth 4.1 -Total Square Cm 108.78 -Photo Taken No -Epithelialization Small 1-33% -Tunneling No -Undermining/Tunneling No -Circular Undermining No -Exudate Amt Medium -Exudate Type Serosanguineous -Wound Margin Distinct, Outline Attached -Granulation Amt Large (67-100%) -Granulation Quality Pale,Red -Slough/Fibrin Yes -Necrosis Amt Small (1-33%) -Necrotic Tissue Type Adherent Slough -Texture (Beatrice-wound Skin Appearance) Assessed, Scarring -Moisture (Beatrice-wound Skin Appearance Assessed ) -Color (Beatrice-wound Skin Appearance) Assessed -Temperature (Beatrice-wound Skin No Abnormality Appearance) (Pt Warm) -Tenderness on Palpation (Beatrice-wound Yes Skin Appearance) -Ulcer Cleansing Rinsed/ Irrigated with Saline -Foul Odor after Cleansing No -Anesthetic Used 4% Lidocaine Solution - Nurse 2 - General Ulcer CM Notes Start: 03/27/20 10:11 Freq: Status: Active Protocol: Activity Type Activity Date Activity User E-Sign Co-Sign Detail Recorded Client Recorded Date Recorded By Document 04/10/20 11:19 GIOVANNI [id number] 04/10/20 11:20 04/10/20 11:19 Wound Center Nurse 2 [Procedure/Treatment] -Time 11:19 -Correct Patient Yes -Correct Side, Site, Position Yes -Correct Procedure Yes -Procedure Performed Yes -Type of Procedure Debridement -Clinical Debridement Subcutaneous -Post Debridement Size (cm) - Length 5 -Post Debridement Size (cm) - Width 22.2 -Post Debridement Size (cm) - Depth 4.2 -Total Square Cm 111.0 -Wound/Ulcer Outcome Not Healed -Ulcer Cleansing Rinsed/ Irrigated with Saline -Foul Odor after Cleansing No -Bioengineered Tissue No -Bleeding Controlled with Pressure -Offloading No -Treatment Response Procedure Tolerated Well [See Physician Procedure note for Specifics] Pain Scale: 0-10 Numeric [Pain] -Is Patient Pain Free? Yes Debridement Note Post-Debridement Measurements/Treatment - Nurse 2 - General Ulcer CM Notes Start: 03/27/20 10:11 Freq: Status: Active Protocol: Activity Type Activity Date Activity User E-Sign Co-Sign Detail Recorded Client Recorded Date Recorded By Document 03/27/20 12:16 RANDI [id number] 03/27/20 12:17 PL Document 04/10/20 11:19 GIOVANNI [id number] 04/10/20 11:20 03/27/20 04/10/20 12:16 11:19 Wound Center Nurse 2 #1 L LOWER ABD QUAD POST OP -Time 10:42 11:19 -Correct Patient Yes Yes -Correct Side, Site, Position Yes Yes -Correct Procedure Yes Yes -Procedure Performed Yes Yes -Type of Procedure Debridement Debridement -Clinical Debridement Muscle Subcutaneous -Post Debridement Size (cm) - Length 6.5 5 -Post Debridement Size (cm) - Width 26.3 22.2 -Post Debridement Size (cm) - Depth 3.0 4.2 -Total Square Cm 170.95 111.0 -Wound/Ulcer Outcome Not Healed Not Healed -Ulcer Cleansing Rinsed/ Rinsed/ Irrigated with Irrigated with Saline Saline -Foul Odor after Cleansing No No -Bioengineered Tissue No -Bleeding Controlled with Pressure Pressure -Offloading No -Treatment Response Procedure Procedure Tolerated Well Tolerated Well Pain Scale: 0-10 Numeric Is Patient Pain Free? Yes Yes Wound debrided: #1 Left lateral abdominal wall and left inguinal area. Laterality: Left Wound Grade/Stage: 2. Type of Debridement: Excisional debridement Anesthesia Used: 4% Lidocaine Solution Depth: Down to and including healthy tissue, in the subcutaneous layer Percentage of wound debrided: 90 Instrument Used: 7mm curette Tissue Removed: subcutaneous tissue. Severity: Fat Layer Exposed Amount of bleeding with debridement: Mild Bleeding Controlled with: Pressure Patient tolerated procedure well Assessment/Plan Assessment: 1. Draining hidradenitis abscess left lateral abdominal wall skin crease. 2. Hidradenitis abscess left inguinal area. 3. Necrotizing soft tissue infection. 4. Hidradenitis. 5. Diabetes mellitus. 6. Obesity. 7. Smoker. 8. s/p I&D of hidradenitis abscess. 9. Abdominal panniculus with panniculitis. 10. Nonhealing diabetes ulcer left lateral abdominal wall skin crease and left inguinal area. Plan: Continue the VAC to be changed three times per week at 150 mmHg continuous suction. She finished her Augmentin and Doxycycline for operative culture that showed Prevotella bivia. Repeat wound culture on 03/20/20 showed Staphylococcus aureus, Streptococcus anginosus, Prevotella bivia, and Clostridium group. She was placed on Augmentin until 05/01/20. Prealbumin from 02/22/20 was 10.8. Encourage nutritional supplementation with protein to help the healing process. Discussed further operative debridement and delayed closure with skin grafting. She will think about it and let me know. Right now she is leaning toward continuing the wound care. She is back to work and doing ok. Followup 2 weeks. Encouraged the patient to stop smoking as it may have deleterious effects on wound healing. [id number]: [id number] Global Visit - ICD-10 - Z48.89, L02.211, L02.214, L73.2, M79.89, M79.3, E66.5, E66.9, E11.9, F17.200, L98.492
== END 2020-04-21 23:59 ==
LOC: WC 10:30
PROVIDERS: PCP Internal Medicine; Visit Provider Surgery
DX: L73.2 Hidradenitis suppurativa (principal); L98.492 Non-pressure chronic ulcer of skin of other sites with fat layer exposed; L98.499 Non-pressure chronic ulcer of skin of other sites with unspecified severity; E65 Localized adiposity; F17.200 Nicotine dependence, unspecified, uncomplicated; E66.9 Obesity, unspecified; M79.89 Other specified soft tissue disorders; M79.3 Panniculitis, unspecified; L02.211 Cutaneous abscess of abdominal wall; E11.622 Type 2 diabetes mellitus with other skin ulcer; E11.52 Type 2 diabetes mellitus with diabetic peripheral angiopathy with gangrene
CPT/HCPCS: 11042; 11043; 11045; 11046; 97606

== ENCOUNTER 2020-05-22 09:45 | Outpatient (RCR) | payer OTHER, SELFPAY ==
[2020-04-22 00:33] VITALS: BP 152/87; PULSE 74; RESP 18; TEMP 36.1
[2020-04-24 10:56] VITALS: BP 135/94; PULSE 67; RESP 18; TEMP 36.9; BMI 47.2
--- NOTE | 2020-04-24 12:53 | PN.PCM_ITS ---
(1) Ulcer of left groin Status: Chronic Current Visit: Yes Qualifiers: Non-pressure ulcer stage: with fat layer exposed Qualified Code(s): L98.492 - Non-pressure chronic ulcer of skin of other sites with fat layer exposed Code(s): L98.499 - Non-pressure chronic ulcer of skin of other sites with unspecified severity (2) Ulcer of abdomen wall Status: Chronic Current Visit: Yes Qualifiers: Non-pressure ulcer stage: with fat layer exposed Qualified Code(s): L98.492 - Non-pressure chronic ulcer of skin of other sites with fat layer exposed Code(s): L98.499 - Non-pressure chronic ulcer of skin of other sites with unspecified severity Comment: Left lower abdomen (3) Hidradenitis Status: Chronic Current Visit: Yes Code(s): L73.2 - Hidradenitis suppurativa (4) Type 2 diabetes mellitus Status: Chronic Current Visit: Yes Code(s): E11.9 - Type 2 diabetes mellitus without complications (5) Obesity Status: Chronic Current Visit: Yes Code(s): E66.9 - Obesity, unspecified (6) Smoker Status: Chronic Current Visit: Yes Code(s): F17.200 - Nicotine dependence, unspecified, uncomplicated Type of Wound Date of Service: 04/24/20 Chief Complaint: Nonhealing hidradenitis ulcer left lateral abdominal wall and left inguinal area. History of Wound: Surgery 02/21/20 - 1. Surgical preparation left abdominal wall skin crease with excisional debridement skin, subcutaneous tissue, and fascia for necrotizing soft tissue hidradenitis abscess infection. 2. Surgical preparation left inguinal area with excision necrotizing soft tissue hidradenitis abscess infection. Wound care - VAC. Operative culture - Prevotella bivia. She was treated with Augmentin and Doxycycline and has finished them. Another wound culture was done on 03/20/20. It was positive for Staphylococcus aureus, Streptococcus anginosus, Prevotella bivia, and Clostridium group. She was placed on Augmentin and will continue them until 05/01/20. Prealbumin from 02/22/20 was 10.8. Encourage nutritional supplementat ion with protein to help the healing process. Today she denies fever. Her appetite is ok. Progress of Wound: Improved. - Physical Exam Vital Signs Temp Pulse Resp BP 98.5 F 67 18 135/94 H 04/24/20 10:56 04/24/20 10:56 04/24/20 10:56 04/24/20 10:56 General: Alert, Oriented x3, Cooperative HEENT: Atraumatic Oral: Moist Mucosa Lungs: Normal air movement Cardiovascular: Regular rate Abdomen: Soft, Obese Extremities: Capillary Refill Less than 3 Seconds Skin: Ulcer/ Wound - Left groin, lower abdominal ulcer, that is has good granulation and is pink. Wound Measurements and Assessment WC - Nurse 1 - General Ulcer Measurement Start: 04/24/20 10:55 Freq: Status: Active Protocol: Activity Type Activity Date Activity User E-Sign Co-Sign Detail Recorded Client Recorded Date Recorded By Document 04/24/20 10:56 DL [id number] 04/24/20 10:58 DL 04/24/20 10:56 Wound Center Nurse 1 [Ulcer Assessment] #1 L LOWER ABD QUAD POST OP -Current Size (cm) - Length 1.5 -Current Size (cm) - Width 19.5 -Current Size (cm) - Depth 2.3 -Total Square Cm 29.25 -Photo Taken No -Exudate Amt Medium -Exudate Type Serosanguineous -Wound Margin Distinct, Outline Attached -Granulation Amt Large (67-100%) -Granulation Quality Red -Necrosis Amt Small (1-33%) -Necrotic Tissue Type Adherent Slough -Structure Exposed N/A -Texture (Beatriec-wound Skin Appearance) Scarring -Moisture (Beatrice-wound Skin Appearance No Abnormality ) -Color (Beatrice-wound Skin Appearance) No Abnormality -Temperature (Beatrice-wound Skin No Abnormality Appearance) (Pt Warm) -Tenderness on Palpation (Beatrice-wound No Skin Appearance) -Ulcer Cleansing Wound Cleanser -Foul Odor after Cleansing No -Anesthetic Used 4% Lidocaine Solution WC - Nurse 2 - General Ulcer CM Notes Start: 04/24/20 10:55 Freq: Status: Active Protocol: Activity Type Activity Date Activity User E-Sign Co-Sign Detail Recorded Client Recorded Date Recorded By Document 04/24/20 11:42 GIOVANNI [id number] 04/24/20 11:45 GIOVANNI 04/24/20 11:42 Wound Center Nurse 2 [Procedure/Treatment] -Time 11:44 -Correct Patient Yes -Correct Side, Site, Position Yes -Correct Procedure Yes -Procedure Performed Yes -Type of Procedure Debridement -Clinical Debridement Subcutaneous -Post Debridement Size (cm) - Length 2.5 -Post Debridement Size (cm) - Width 18.5 -Post Debridement Size (cm) - Depth 2.8 -Total Square (cm) 46.25 -Wound/Ulcer Outcome Not Healed -Ulcer Cleansing Rinsed/ Irrigated with Saline -Foul Odor after Cleansing No -Bioengineered Tissue No -Bleeding Controlled with Pressure -Offloading No -Treatment Response Procedure Tolerated Well [See Physician Procedure note for Specifics] Pain Scale: 0-10 Numeric [Pain] -Is Patient Pain Free? Yes Musculoskeletal: No Tenderness to Palpation of Joints or Extremities Neurological: Cranial nerves II-XII grossly intact Psych/Mental Status: Normal Affect, Appropriate Debridement Note Post-Debridement Measurements/Treatment WC - Nurse 2 - General Ulcer CM Notes Start: 04/24/20 10:55 Freq: Status: Active Protocol: Activity Type Activity Date Activity User E-Sign Co-Sign Detail Recorded Client Recorded Date Recorded By Document 04/24/20 11:42 GIOVANNI [id number] 04/24/20 11:45 GIOVANNI 04/24/20 11:42 Wound Center Nurse 2 #1 L LOWER ABD QUAD POST OP -Time 11:44 -Correct Patient Yes -Correct Side, Site, Position Yes -Correct Procedure Yes -Procedure Performed Yes -Type of Procedure Debridement -Clinical Debridement Subcutaneous -Post Debridement Size (cm) - Length 2.5 -Post Debridement Size (cm) - Width 18.5 -Post Debridement Size (cm) - Depth 2.8 -Total Square (cm) 46.25 -Wound/Ulcer Outcome Not Healed -Ulcer Cleansing Rinsed/ Irrigated with Saline -Foul Odor after Cleansing No -Bioengineered Tissue No -Bleeding Controlled with Pressure -Offloading No -Treatment Response Procedure Tolerated Well Pain Scale: 0-10 Numeric Is Patient Pain Free? Yes Wound debrided: groin/lower abdomen ulcer Laterality: Left Type of Debridement: Excisional debridement Anesthesia Used: 5% Lidocaine Gel Depth: Down to and including healthy tissue, in the subcutaneous layer, to muscle Percentage of wound debrided: 100 Instrument Used: 7mm curette Tissue Removed: Subcutaneous tissue into the muscle Severity: Fat Layer Exposed Amount of bleeding with debridement: Mild Bleeding Controlled with: Pressure Patient tolerated procedure well Assessment/Plan Active Problems Ulcer of left groin (Chronic) Ulcer of abdomen wall (Chronic) Left lower abdomen Panniculitis (Chronic) Smoker (Chronic) Obesity (Chronic) Hidradenitis (Chronic) Type 2 diabetes mellitus (Chronic) Assessment: 1. Draining hidradenitis abscess left lateral abdominal wall skin crease. 2. Hidradenitis abscess left inguinal area. 3. Necrotizing soft tissue infection. 4. Hidradenitis. 5. Diabetes mellitus. 6. Obesity. 7. Smoker. 8. s/p I&D of hidradenitis abscess. 9. Abdominal panniculus with panniculitis. 10. Nonhealing diabetes ulcer left lateral abdominal wall skin crease and left inguinal area. Plan: Continue the VAC to be changed three times per week at 150 mmHg continuous suction. She finished her Augmentin and Doxycycline for operative culture that showed Prevotella bivia. Repeat wound culture on 03/20/20 showed Staphylococcus aureus, Streptococcus anginosus, Prevotella bivia, and Clostridium group. She was placed on Augmentin until 05/01/20. Prealbumin from 02/22/20 was 10.8. Encourage nutritional supplementation with protein to help the healing process. Discussed further operative debridement and delayed closure with skin grafting. She will think about it and let me know. Right now she is leaning toward continuing the wound care. She is back to work and doing ok. Followup 2 weeks. Encouraged the patient to stop smoking as it may have deleterious effects on wound healing. [id number]: [id number] Global Visit
[2020-05-08 10:51] VITALS: BP 142/66; PULSE 61; RESP 18; TEMP 36.3; BMI 47.2
--- NOTE | 2020-05-08 16:44 | PN.PCM_ITS ---
Type of Wound Date of Service: 05/08/20 Chief Complaint: Nonhealing diabetic hidradenitis ulcer left lateral abdominal wall and left inguinal area. History of Wound: Surgery 02/21/20 - 1. Surgical preparation left abdominal wall skin crease with excisional debridement skin, subcutaneous tissue, and fascia for necrotizing soft tissue hidradenitis abscess infection. 2. Surgical preparation left inguinal area with excision necrotizing soft tissue hidradenitis abscess infection. Wound care - VAC. Operative culture - Prevotella bivia. She was treated with Augmentin and Doxycycline and has finished them. Another wound culture was done on 03/20/20. It was positive for Staphylococcus aureus, Streptococcus anginosus, Prevotella bivia, and Clostridium group. She was placed on Augmentin and will continue them until 05/01/20. Prealbumin from 02/22/20 was 10.8. Encourage nutritional supplemen tation with protein to help the healing process. Today she denies fever. Her appetite is ok. Progress of Wound: Improved. - Physical Exam Vital Signs Temp Pulse Resp BP 97.3 F L 61 18 142/66 H 05/08/20 10:51 05/08/20 10:51 05/08/20 10:51 05/08/20 10:51 Wound Measurements and Assessment WC - Nurse 1 - General Ulcer Measurement Start: 04/24/20 10:55 Freq: Status: Active Protocol: Activity Type Activity Date Activity User E-Sign Co-Sign Detail Recorded Client Recorded Date Recorded By Document 05/08/20 10:51 [facility] [id number] 05/08/20 10:55 [facility] 05/08/20 10:51 Wound Center Nurse 1 [Ulcer Assessment] #1 L LOWER ABD QUAD POST OP -Combined with other wound No -Current Size (cm) - Length 1.5 -Current Size (cm) - Width 14 -Current Size (cm) - Depth 1.6 -Total Square Cm 21.0 -Photo Taken No -Epithelialization Small 1-33% -Tunneling No -Undermining/Tunneling No -Circular Undermining No -Exudate Amt Medium -Exudate Type Serosanguineous -Wound Margin Distinct, Outline Attached -Granulation Amt Large (67-100%) -Granulation Quality Pale,Red -Slough/Fibrin Yes -Necrosis Amt Small (1-33%) -Necrotic Tissue Type Adherent Slough -Texture (Beatrice-wound Skin Appearance) Assessed, Scarring -Moisture (Beatrice-wound Skin Appearance Assessed ) -Color (Beatrice-wound Skin Appearance) Assessed -Temperature (Beatrice-wound Skin No Abnormality Appearance) (Pt Warm) -Tenderness on Palpation (Beatrice-wound No Skin Appearance) -Ulcer Cleansing Rinsed/ Irrigated with Saline -Foul Odor after Cleansing No -Anesthetic Used 4% Lidocaine Solution - Nurse 2 - General Ulcer CM Notes Start: 05/08/20 10:27 Freq: Status: Active Protocol: Activity Type Activity Date Activity User E-Sign Co-Sign Detail Recorded Client Recorded Date Recorded By Document 05/08/20 11:07 GIOVANNI [id number] 05/08/20 11:10 GIOVANNI 05/08/20 11:07 Wound Center Nurse 2 [Procedure/Treatment] -Correct Patient Yes -Correct Side, Site, Position Yes -Correct Procedure Yes -Procedure Performed Yes -Type of Procedure Debridement -Clinical Debridement Subcutaneous -Tissue Removed Subcutaneous -Post Debridement (cm) - Length 2.2 -Post Debridement (cm) - Width 12.5 -Post Debridement (cm) - Depth 2.0 -Total Square (Post) (cm) 27.50 -Area of Debridement (cm) - Length 2.2 -Area of Debridement (cm) - Width 12.5 -Total Square (Area) (cm) 27.50 -Tunneling No -Undermining/Tunneling No -Circular Undermining No -Wound/Ulcer Outcome Not Healed -Ulcer Cleansing Rinsed/ Irrigated with Saline -Foul Odor after Cleansing No -Bioengineered Tissue No -Bleeding Controlled with Pressure -Offloading No -Treatment Response Procedure Tolerated Well -Debridement - Open, 1st 20sq cm Yes -Debridement - Subq, 1st 20sq cm Yes -Debridement, SubQ, ea addt'l 20sq cm 1 or part thereof [See Physician Procedure note for Specifics] Pain Scale: 0-10 Numeric [Pain] -Is Patient Pain Free? Yes Debridement Note Post-Debridement Measurements/Treatment - Nurse 2 - General Ulcer CM Notes Start: 05/08/20 10:27 Freq: Status: Active Protocol: Activity Type Activity Date Activity User E-Sign Co-Sign Detail Recorded Client Recorded Date Recorded By Document 05/08/20 11:07 GIOVANNI [id number] 05/08/20 11:10 08/17/20 11:07 Wound Center Nurse 2 #1 L LOWER ABD QUAD POST OP -Correct Patient Yes -Correct Side, Site, Position Yes -Correct Procedure Yes -Procedure Performed Yes -Type of Procedure Debridement -Clinical Debridement Subcutaneous -Tissue Removed Subcutaneous -Post Debridement (cm) - Length 2.2 -Post Debridement (cm) - Width 12.5 -Post Debridement (cm) - Depth 2.0 -Total Square (Post) (cm) 27.50 -Area of Debridement (cm) - Length 2.2 -Area of Debridement (cm) - Width 12.5 -Total Square (Area) (cm) 27.50 -Tunneling No -Undermining/Tunneling No -Circular Undermining No -Wound/Ulcer Outcome Not Healed -Ulcer Cleansing Rinsed/ Irrigated with Saline -Foul Odor after Cleansing No -Bioengineered Tissue No -Bleeding Controlled with Pressure -Offloading No -Treatment Response Procedure Tolerated Well -Debridement - Open, 1st 20sq cm Yes -Debridement - Subq, 1st 20sq cm Yes -Debridement, SubQ, ea addt'l 20sq cm 1 or part thereof Pain Scale: 0-10 Numeric Is Patient Pain Free? Yes Wound debrided: #1 Left lateral abdominal wall and left inguinal area. Laterality: Left Wound Grade/Stage: 2. Type of Debridement: Excisional debridement Anesthesia Used: 4% Lidocaine Solution Depth: Down to and including healthy tissue, in the subcutaneous layer Percentage of wound debrided: 100 Instrument Used: 7mm curette Tissue Removed: subcutaneous tissue. Severity: Fat Layer Exposed Amount of bleeding with debridement: Mild Bleeding Controlled with: Pressure Patient tolerated procedure well Assessment/Plan Assessment: 1. Nonhealing diabetes ulcer left lateral abdominal wall skin crease and left inguinal area. 2. Hidradenitis. 3. Diabetes mellitus. 4. Obesity. 5. Smoker. 6. Abdominal panniculus with panniculitis. Plan: Continue the VAC to be changed three times per week at 150 mmHg continuous suction. She finished her Augmentin and Doxycycline for operative culture that showed Prevotella bivia. Repeat wound culture on 03/20/20 showed Staphylococcus aureus, Streptococcus anginosus, Prevotella bivia, and Clostridium group. She was placed on Augmentin until 05/01/20 and has finished them. Prealbumin from 02/22/20 was 10.8. Encourage nutritional supplementation with protein to help the healing process. Discussed further operative debridement and delayed closure with skin grafting. She will think about it and let me know. Right now she is leaning toward continuing the wound care. She is back to work and doing ok. Followup 2 weeks. Encouraged the patient to stop smoking as it may have deleterious effects on wound healing. [id number]: [id number] Global Visit - ICD-10 - Z48.89, L98.492, L73.2, E11.9, M79.3, E65, E66.9, F17.200
[2020-05-22 10:02] VITALS: BP 139/80; PULSE 66; RESP 20; TEMP 36.2; BMI 47.2
--- NOTE | 2020-05-22 15:32 | PCM.WC.PN ---
(1) Ulcer of left groin Status: Chronic Qualifiers: Non-pressure ulcer stage: with fat layer exposed Qualified Code(s): L98.492 - Non-pressure chronic ulcer of skin of other sites with fat layer exposed Code(s): L98.499 - Non-pressure chronic ulcer of skin of other sites with unspecified severity (2) Ulcer of abdomen wall Status: Chronic Qualifiers: Non-pressure ulcer stage: with fat layer exposed Qualified Code(s): L98.492 - Non-pressure chronic ulcer of skin of other sites with fat layer exposed Code(s): L98.499 - Non-pressure chronic ulcer of skin of other sites with unspecified severity Comment: Left lower abdomen (3) Hidradenitis Status: Chronic Code(s): L73.2 - Hidradenitis suppurativa (4) Type 2 diabetes mellitus Status: Chronic Code(s): E11.9 - Type 2 diabetes mellitus without complications (5) Obesity Status: Chronic Code(s): E66.9 - Obesity, unspecified (6) Smoker Status: Chronic Code(s): F17.200 - Nicotine dependence, unspecified, uncomplicated Type of Wound Date of Service: 05/22/20 Chief Complaint: Nonhealing diabetic hidradenitis ulcer left lateral abdominal wall and left inguinal area. History of Wound: Surgery 02/21/20 - 1. Surgical preparation left abdominal wall skin crease with excisional debridement skin, subcutaneous tissue, and fascia for necrotizing soft tissue hidradenitis abscess infection. 2. Surgical preparation left inguinal area with excision necrotizing soft tissue hidradenitis abscess infection. Wound care - Stop theVAC and start daily Silver dressings. Operative culture - Prevotella bivia. She was treated with Augmentin and Doxycycline and has finished them. Another wound culture was done on 03/20/20. It was positive for Staphylococcus aureus, Streptococcus anginosus, Prevotella bivia, and Clostridium group. She was placed on Augmentin and will continue them until 05/01/20. Prealbumin from 02/22/20 was 10.8. Encourage nutritional supplementation with protein to help the healing process. Today she denies fever. Her appetite is ok. Progress of Wound: Improved. - Physical Exam Vital Signs Temp Pulse Resp BP 97.2 F L 66 20 H 139/80 H 05/22/20 10:02 05/22/20 10:02 05/22/20 10:02 05/22/20 10:02 General: Alert, Oriented x3, Cooperative HEENT: Atraumatic Oral: Moist Mucosa Lungs: Normal air movement Cardiovascular: Regular rate Abdomen: Soft Extremities: Capillary Refill Less than 3 Seconds Skin: Ulcer/ Wound - Left lower abdomen/groin ulcer which is beefy pink and decreasing in size. Wound Measurements and Assessment WC - Nurse 1 - General Ulcer Measurement Start: 04/24/20 10:55 Freq: Status: Active Protocol: Activity Type Activity Date Activity User E-Sign Co-Sign Detail Recorded Client Recorded Date Recorded By Document 05/22/20 10:02 DL [id number] 05/22/20 10:11 DL 05/22/20 10:02 Wound Center Nurse 1 [Ulcer Assessment] #1 L LOWER ABD QUAD POST OP -Current Size (cm) - Length 2.8 -Current Size (cm) - Width 10.8 -Current Size (cm) - Depth 1 -Total Square Cm 30.24 -Photo Taken No -Exudate Amt Small -Exudate Type Serosanguineous -Wound Margin Distinct, Outline Attached -Granulation Amt Large (67-100%) -Granulation Quality Red -Necrosis Amt None Present (0 %) -Structure Exposed N/A -Texture (Beatrice-wound Skin Appearance) Scarring -Moisture (Beatrice-wound Skin Appearance No Abnormality ) -Color (Beatrice-wound Skin Appearance) No Abnormality -Temperature (Beatrice-wound Skin No Abnormality Appearance) (Pt Warm) -Tenderness on Palpation (Beatrice-wound No Skin Appearance) -Ulcer Cleansing Rinsed/ Irrigated with Saline -Foul Odor after Cleansing No -Anesthetic Used 4% Lidocaine Solution WC - Nurse 2 - General Ulcer CM Notes Start: 05/08/20 10:27 Freq: Status: Active Protocol: Activity Type Activity Date Activity User E-Sign Co-Sign Detail Recorded Client Recorded Date Recorded By Document 05/22/20 10:48 GIOVANNI [id number] 05/22/20 10:50 GIOVANNI 05/22/20 10:48 Wound Center Nurse 2 [Procedure/Treatment] -Correct Patient Yes -Correct Side, Site, Position Yes -Correct Procedure Yes -Procedure Performed Yes -Type of Procedure Debridement -Clinical Debridement Subcutaneous -Tissue Removed Subcutaneous -Post Debridement (cm) - Length 3 -Post Debridement (cm) - Width 11.5 -Post Debridement (cm) - Depth 1.0 -Total Square (Post) (cm) 34.5 -Area of Debridement (cm) - Length 3 -Area of Debridement (cm) - Width 11.5 -Total Square (Area) (cm) 34.5 -Tunneling No -Undermining/Tunneling No -Circular Undermining No -Wound/Ulcer Outcome Not Healed -Ulcer Cleansing Rinsed/ Irrigated with Saline -Foul Odor after Cleansing No -Bioengineered Tissue No -Bleeding Controlled with Pressure -Offloading No -Treatment Response Procedure Tolerated Well -Debridement - Subq, 1st 20sq cm Yes -Debridement, SubQ, ea addt'l 20sq cm 1 or part thereof [See Physician Procedure note for Specifics] Pain Scale: 0-10 Numeric [Pain] -Is Patient Pain Free? Yes - Nurse 3 - General Ulcer D/C NN Start: 05/22/20 11:09 Freq: Status: Active Protocol: Activity Type Activity Date Activity User E-Sign Co-Sign Detail Recorded Client Recorded Date Recorded By Document 05/22/20 11:09 YONNY [id number] 05/22/20 11:10 05/22/20 11:09 Wound Care Nurse 3 [Wound Dressing] #1 L LOWER ABD QUAD POST OP -Ulcer Cleansing Rinsed/ Irrigated with Saline -Foul Odor after Cleansing No -Primary Dressing Applied Aquacel AG 4x4 -Primary Dressing Covered/Secured Dry Gauze, with Secured with Tape -Aquacel AG 4x4 1 [Post Procedure Tolerated] -Treatment Response Procedure Tolerated Well Pain Scale: 0-10 Numeric [Pain] -Is Patient Pain Free? Yes - Visit Discharge [Visit Discharge Information] -Discharge Condition Stable -Ambulatory Status Ambulatory -Transportation Private Auto -Notes: VAC DISCONTINUED. Musculoskeletal: No Tenderness to Palpation of Joints or Extremities Neurological: Cranial nerves II-XII grossly intact Psych/Mental Status: Normal Affect, Appropriate Debridement Note Post-Debridement Measurements/Treatment - Nurse 2 - General Ulcer CM Notes Start: 05/08/20 10:27 Freq: Status: Active Protocol: Activity Type Activity Date Activity User E-Sign Co-Sign Detail Recorded Client Recorded Date Recorded By Document 05/08/20 11:07 GIOVANNI [id number] 05/08/20 11:10 Document 05/22/20 10:48 [id number] 05/22/20 10:50 JF 05/08/20 05/22/20 11:07 10:48 Wound Center Nurse 2 #1 L LOWER ABD QUAD POST OP -Correct Patient Yes Yes -Correct Side, Site, Position Yes Yes -Correct Procedure Yes Yes -Procedure Performed Yes Yes -Type of Procedure Debridement Debridement -Clinical Debridement Subcutaneous Subcutaneous -Tissue Removed Subcutaneous Subcutaneous -Post Debridement (cm) - Length 2.2 3 -Post Debridement (cm) - Width 12.5 11.5 -Post Debridement (cm) - Depth 2.0 1.0 -Total Square (Post) (cm) 27.50 34.5 -Area of Debridement (cm) - Length 2.2 3 -Area of Debridement (cm) - Width 12.5 11.5 -Total Square (Area) (cm) 27.50 34.5 -Tunneling No No -Undermining/Tunneling No No -Circular Undermining No No -Wound/Ulcer Outcome Not Healed Not Healed -Ulcer Cleansing Rinsed/ Rinsed/ Irrigated with Irrigated with Saline Saline -Foul Odor after Cleansing No No -Bioengineered Tissue No No -Bleeding Controlled with Pressure Pressure -Offloading No No -Treatment Response Procedure Procedure Tolerated Well Tolerated Well -Debridement - Subq, 1st 20sq cm Yes Yes -Debridement, SubQ, ea addt'l 20sq cm 1 1 or part thereof Pain Scale: 0-10 Numeric Is Patient Pain Free? Yes Yes - Nurse 3 - General Ulcer D/C NN Start: 05/22/20 11:09 Freq: Status: Active Protocol: Activity Type Activity Date Activity User E-Sign Co-Sign Detail Recorded Client Recorded Date Recorded By Document 05/22/20 11:09 [id number] 05/22/20 11:10 05/22/20 11:09 Wound Care Nurse 3 #1 L LOWER ABD QUAD POST OP -Ulcer Cleansing Rinsed/ Irrigated with Saline -Foul Odor after Cleansing No -Primary Dressing Applied Aquacel AG 4x4 -Primary Dressing Covered/Secured with Dry Gauze, Secured with Tape -Aquacel AG 4x4 1 Treatment Response Procedure Tolerated Well Pain Scale: 0-10 Numeric Is Patient Pain Free? Yes WC - Visit Discharge Discharge Condition Stable Ambulatory Status Ambulatory Transportation Private Auto Notes: VAC DISCONTINUED. Wound debrided: groin/lower abdomen ulcer Laterality: Left Type of Debridement: Excisional debridement Anesthesia Used: 5% Lidocaine Gel Depth: Down to and including healthy tissue, in the subcutaneous layer Percentage of wound debrided: 100 Instrument Used: 7mm curette Tissue Removed: Subcutaneous tissue and slough Severity: Fat Layer Exposed Amount of bleeding with debridement: Mild Bleeding Controlled with: Pressure Patient tolerated procedure well Assessment/Plan Assessment: 1. Nonhealing diabetes ulcer left lateral abdominal wall skin crease and left inguinal area. 2. Hidradenitis. 3. Diabetes mellitus. 4. Obesity. 5. Smoker. 6. Abdominal panniculus with panniculitis. Plan: Wound care: Wash with soap and water daily. Discontinue the VAC and start Aquacel-Ag daily to the left left groin/lower abdomen ulcer. She finished her Augmentin and Doxycycline for operative culture that showed Prevotella bivia. Repeat wound culture on 03/20/20 showed Staphylococcus aureus, Streptococcus anginosus, Prevotella bivia, and Clostridium group. She was placed on Augmentin until 05/01/20 and has finished them. Prealbumin from 02/22/20 was 10.8. Encourage nutritional supplementation with protein to help the healing process. Discussed further operative debridement and delayed closure with skin grafting. She will think about it and let me know. Right now she is leaning toward continuing the wound care. She is back to work and doing ok. Followup 2 weeks. Encouraged the patient to stop smoking as it may have deleterious effects on wound healing. [id number]: [id number] Nicole subq tissue 20 sq cm/< Add On Codes: [id number] Nicole subq tissue add-on
== END 2020-05-22 23:59 ==
LOC: WC 09:45
PROVIDERS: PCP Internal Medicine; Visit Provider Surgery
DX: L98.492 Non-pressure chronic ulcer of skin of other sites with fat layer exposed (principal); L73.2 Hidradenitis suppurativa; E66.9 Obesity, unspecified; E11.52 Type 2 diabetes mellitus with diabetic peripheral angiopathy with gangrene; E11.622 Type 2 diabetes mellitus with other skin ulcer; M79.3 Panniculitis, unspecified; F17.200 Nicotine dependence, unspecified, uncomplicated; B95.4 Other streptococcus as the cause of diseases classified elsewhere
CPT/HCPCS: 11042; 11045; 97597; 97605

== ENCOUNTER 2020-06-12 09:06 | Outpatient (RCR) | payer OTHER, SELFPAY ==
[2020-05-23 00:36] VITALS: BP 139/80; PULSE 66; RESP 20; TEMP 36.2
[2020-06-12 09:07] VITALS: BP 142/84; PULSE 68; RESP 20; TEMP 36.6; BMI 47.2
--- NOTE | 2020-06-12 12:16 | PN.PCM_ITS ---
(1) Ulcer of left groin Status: Chronic Current Visit: Yes Qualifiers: Non-pressure ulcer stage: with fat layer exposed Code(s): L98.499 - Non-pressure chronic ulcer of skin of other sites with unspecified severity (2) Ulcer of abdomen wall Status: Chronic Current Visit: Yes Qualifiers: Non-pressure ulcer stage: with fat layer exposed Code(s): L98.499 - Non-pressure chronic ulcer of skin of other sites with unspecified severity Comment: Left lower abdomen (3) Hidradenitis Status: Chronic Current Visit: No Code(s): L73.2 - Hidradenitis suppurativa (4) Type 2 diabetes mellitus Status: Chronic Current Visit: No Code(s): E11.9 - Type 2 diabetes mellitus without complications (5) Obesity Status: Chronic Current Visit: No Code(s): E66.9 - Obesity, unspecified (6) Smoker Status: Chronic Current Visit: No Code(s): F17.200 - Nicotine dependence, unspecified, uncomplicated Type of Wound Date of Service: 06/12/20 Chief Complaint: Nonhealing diabetic hidradenitis ulcer left lateral abdominal wall and left inguinal area. History of Wound: Surgery 02/21/20 - 1. Surgical preparation left abdominal wall skin crease with excisional debridement skin, subcutaneous tissue, and fascia for necrotizing soft tissue hidradenitis abscess infection. 2. Surgical preparation left inguinal area with excision necrotizing soft tissue hidradenitis abscess infection. Wound care - Stop theVAC and start daily Silver dressings. Operative culture - Prevotella bivia. She was treated with Augmentin and Doxycycline and has finished them. Another wound culture was done on 03/20/20. It was positive for Staphylococcus aureus, Streptococcus anginosus, Prevotella bivia, and Clostridium group. She was placed on Augmentin and will continue them until 05/01/20. Prealbumin from 02/22/20 was 10.8. Encourage nutritional supplementation with protein to help the healing process. Today she denies fever. Her appetite is ok. Progress of Wound: The patient denies any fever, chills, nausea, vomiting, or diarrhea. Denies any signs of infection, including increasing pain, redness, swelling, or drainage from affected area. Her wound has improved in size and appearance. - Physical Exam Vital Signs Temp Pulse Resp BP 98 F 68 20 H 142/84 H 06/12/20 09:07 06/12/20 09:07 06/12/20 09:07 06/12/20 09:07 General: Alert, Oriented x3, Cooperative HEENT: Atraumatic, Normocephalic Oral: Moist Mucosa Lungs: Normal air movement Cardiovascular: Regular rate Abdomen: Soft Extremities: Capillary Refill Less than 3 Seconds Skin: Ulcer/ Wound - Left lower abdomen/groin ulcer with fat layer exposed. Granulation tissue is present. There is no tunneling, undermining, or probing to bone. Wound Measurements and Assessment WC - Nurse 1 - General Ulcer Measurement Start: 06/12/20 09:06 Freq: Status: Active Protocol: Activity Type Activity Date Activity User E-Sign Co-Sign Detail Recorded Client Recorded Date Recorded By Document 06/12/20 09:07 DL [id number] 06/12/20 09:16 DL 06/12/20 09:07 Wound Center Nurse 1 [Ulcer Assessment] #1 L LOWER ABD QUAD POST OP -Current Size (cm) - Length 1.8 -Current Size (cm) - Width 5 -Current Size (cm) - Depth 0.1 -Total Square Cm 9.0 -Photo Taken No -Exudate Amt Small -Exudate Type Serosanguineous -Wound Margin Distinct, Outline Attached -Granulation Amt Large (67-100%) -Granulation Quality Red -Necrosis Amt Small (1-33%) -Necrotic Tissue Type Adherent Slough -Structure Exposed N/A -Texture (Beatrice-wound Skin Appearance) Scarring -Moisture (Beatrice-wound Skin Appearance No Abnormality ) -Color (Beatrice-wound Skin Appearance) No Abnormality -Temperature (Beatrice-wound Skin No Abnormality Appearance) (Pt Warm) -Tenderness on Palpation (Beatrice-wound No Skin Appearance) -Ulcer Cleansing Rinsed/ Irrigated with Saline -Foul Odor after Cleansing No -Anesthetic Used 4% Lidocaine Solution WC - Nurse 2 - General Ulcer CM Notes Start: 06/12/20 09:06 Freq: Status: Active Protocol: Activity Type Activity Date Activity User E-Sign Co-Sign Detail Recorded Client Recorded Date Recorded By Document 06/12/20 09:27 GIOVANNI [id number] 06/12/20 09:29 GIOVANNI 06/12/20 09:27 Wound Center Nurse 2 [Procedure/Treatment] -Time 09:28 -Correct Patient Yes -Correct Side, Site, Position Yes -Correct Procedure Yes -Procedure Performed Yes -Type of Procedure Debridement -Clinical Debridement Subcutaneous -Tissue Removed Subcutaneous -Post Debridement (cm) - Length 2.5 -Post Debridement (cm) - Width 8.6 -Post Debridement (cm) - Depth 0.1 -Total Square (Post) (cm) 21.50 -Area of Debridement (cm) - Length 2.5 -Area of Debridement (cm) - Width 8.6 -Total Square (Area) (cm) 21.50 -Tunneling No -Undermining/Tunneling No -Circular Undermining No -Wound/Ulcer Outcome Not Healed -Ulcer Cleansing Rinsed/ Irrigated with Saline -Foul Odor after Cleansing No -Bioengineered Tissue No -Bleeding Controlled with Pressure -Offloading No -Debridement - Subq, 1st 20sq cm Yes -Debridement, SubQ, ea addt'l 20sq cm 1 or part thereof [See Physician Procedure note for Specifics] Pain Scale: 0-10 Numeric [Pain] -Is Patient Pain Free? Yes - Nurse 3 - General Ulcer D/C NN Start: 06/12/20 09:06 Freq: Status: Active Protocol: Activity Type Activity Date Activity User E-Sign Co-Sign Detail Recorded Client Recorded Date Recorded By Document 06/12/20 09:34 [facility] [id number] 06/12/20 09:35 [facility] 06/12/20 09:34 Wound Care Nurse 3 [Wound Dressing] #1 L LOWER ABD QUAD POST OP -Ulcer Cleansing Rinsed/ Irrigated with Saline -Foul Odor after Cleansing No -Primary Dressing Applied Aquacel AG 4x4 -Primary Dressing Covered/Secured Dry Gauze, with Secured with Tape -Aquacel AG 4x4 2 [Post Procedure Tolerated] -Treatment Response Procedure Tolerated Well Pain Scale: 0-10 Numeric [Pain] -Is Patient Pain Free? Yes - Visit Discharge [Visit Discharge Information] -Discharge Condition Stable -Ambulatory Status Ambulatory -Transportation Private Auto [Facility Notification] -Facility Type Home Health Psych/Mental Status: Normal Affect, Appropriate Debridement Note Post-Debridement Measurements/Treatment - Nurse 2 - General Ulcer CM Notes Start: 06/12/20 09:06 Freq: Status: Active Protocol: Activity Type Activity Date Activity User E-Sign Co-Sign Detail Recorded Client Recorded Date Recorded By Document 06/12/20 09:27 [id number] 06/12/20 09:29 06/12/20 09:27 Wound Center Nurse 2 #1 L LOWER ABD QUAD POST OP -Time 09:28 -Correct Patient Yes -Correct Side, Site, Position Yes -Correct Procedure Yes -Procedure Performed Yes -Type of Procedure Debridement -Clinical Debridement Subcutaneous -Tissue Removed Subcutaneous -Post Debridement (cm) - Length 2.5 -Post Debridement (cm) - Width 8.6 -Post Debridement (cm) - Depth 0.1 -Total Square (Post) (cm) 21.50 -Area of Debridement (cm) - Length 2.5 -Area of Debridement (cm) - Width 8.6 -Total Square (Area) (cm) 21.50 -Tunneling No -Undermining/Tunneling No -Circular Undermining No -Wound/Ulcer Outcome Not Healed -Ulcer Cleansing Rinsed/ Irrigated with Saline -Foul Odor after Cleansing No -Bioengineered Tissue No -Bleeding Controlled with Pressure -Offloading No -Debridement - Subq, 1st 20sq cm Yes -Debridement, SubQ, ea addt'l 20sq cm 1 or part thereof Pain Scale: 0-10 Numeric Is Patient Pain Free? Yes - Nurse 3 - General Ulcer D/C NN Start: 06/12/20 09:06 Freq: Status: Active Protocol: Activity Type Activity Date Activity User E-Sign Co-Sign Detail Recorded Client Recorded Date Recorded By Document 06/12/20 09:34 [facility] [id number] 06/12/20 09:35 [facility] 06/12/20 09:34 Wound Care Nurse 3 #1 L LOWER ABD QUAD POST OP -Ulcer Cleansing Rinsed/ Irrigated with Saline -Foul Odor after Cleansing No -Primary Dressing Applied Aquacel AG 4x4 -Primary Dressing Covered/Secured with Dry Gauze, Secured with Tape -Aquacel AG 4x4 2 Treatment Response Procedure Tolerated Well Pain Scale: 0-10 Numeric Is Patient Pain Free? Yes - Visit Discharge Discharge Condition Stable Ambulatory Status Ambulatory Transportation Private [facility] Facility Type Home Health Wound debrided: Groin/lower abdomen ulcer Laterality: Left Anesthesia Used: 5% Lidocaine Gel Depth: in the subcutaneous layer Percentage of wound debrided: 100 Instrument Used: 7mm curette Tissue Removed: Slough and devitalized tissue Severity: Fat Layer Exposed Amount of bleeding with debridement: Mild Bleeding Controlled with: Pressure Patient tolerated procedure well Assessment/Plan Active Problems Ulcer of left groin (Chronic) Ulcer of abdomen wall (Chronic) Left lower abdomen Assessment: 1. Nonhealing diabetes ulcer left lateral abdominal wall skin crease and left inguinal area. 2. Hidradenitis. 3. Diabetes mellitus. 4. Obesity. 5. Smoker. 6. Abdominal panniculus with panniculitis. Plan: Wound care: Wash with soap and water daily. Continue Aquacel-Ag daily to the left left groin/lower abdomen ulcer. She finished her Augmentin and Doxycycline for operative culture that showed Prevotella bivia. Repeat wound culture on 03/20/20 showed Staphylococcus aureus, Streptococcus anginosus, Prevotella bivia, and Clostridium group. She was placed on Augmentin until 05/01/20 and has finished them. Prealbumin from 02/22/20 was 10.8. Encouraged nutritional supplementation with protein to help the healing process. Follow-up 2 weeks. Encouraged the patient to stop smoking as it may have deleterious effects on wound healing. [id number]: [id number] Nicole subq tissue 20 sq cm/<
== END 2020-06-21 23:59 ==
LOC: WC 09:06
PROVIDERS: PCP Internal Medicine; Visit Provider Surgery
DX: L73.2 Hidradenitis suppurativa (principal); E66.9 Obesity, unspecified; F17.200 Nicotine dependence, unspecified, uncomplicated; L98.492 Non-pressure chronic ulcer of skin of other sites with fat layer exposed; M79.3 Panniculitis, unspecified; E11.622 Type 2 diabetes mellitus with other skin ulcer
CPT/HCPCS: 11042; 11045

== ENCOUNTER 2020-07-10 10:30 | Outpatient (RCR) | payer OTHER, SELFPAY ==
[2020-06-22 00:32] VITALS: BP 142/84; PULSE 68; RESP 20; TEMP 36.6
[2020-06-26 10:37] VITALS: BP 155/93; PULSE 101; RESP 18; TEMP 36.5; BMI 47.2
[2020-06-26 11:00] VITALS: BP 163/78; PULSE 62; TEMP 36.5
--- NOTE | 2020-06-27 15:12 | PN.PCM_ITS ---
(1) Ulcer of left groin Status: Chronic Current Visit: Yes Qualifiers: Code(s): L98.499 - Non-pressure chronic ulcer of skin of other sites with unspecified severity (2) Ulcer of abdomen wall Status: Chronic Current Visit: Yes Qualifiers: Code(s): L98.499 - Non-pressure chronic ulcer of skin of other sites with unspecified severity Comment: Left lower abdomen (3) Hidradenitis Status: Chronic Current Visit: Yes Code(s): L73.2 - Hidradenitis suppurativa (4) Obesity Status: Chronic Current Visit: No Code(s): E66.9 - Obesity, unspecified (5) Smoker Status: Chronic Current Visit: No Code(s): F17.200 - Nicotine dependence, unspecified, uncomplicated (6) Type 2 diabetes mellitus Status: Chronic Current Visit: No Code(s): E11.9 - Type 2 diabetes mellitus without complications Type of Wound Date of Service: 06/27/20 Chief Complaint: Nonhealing diabetic hidradenitis ulcer left lateral abdominal wall and left inguinal area. History of Wound: Surgery 02/21/20 - 1. Surgical preparation left abdominal wall skin crease with excisional debridement skin, subcutaneous tissue, and fascia fo r necrotizing soft tissue hidradenitis abscess infection. 2. Surgical preparation left inguinal area with excision necrotizing soft tissue hidradenitis abscess infection. Wound care - VAC. Operative culture - Prevotella bivia. She was treated with Augmentin and Doxycycline and has finished them. Another wound culture was done on 03/20/20. It was positive for Staphylococcus aureus, Streptococcus anginosus, Prevotella bivia, and Clostridium group. She was placed on Augmentin and will continue them until 05/01/20. Prealbumin from 02/22/20 was 10.8. Encourage nutritional supplementation with protein to help the healing process. Today she denies fever. Her appetite is ok. Progress of Wound: The patient denies any fever, chills, nausea, vomiting, or diarrhea. Denies any signs of infection, including increasing pain, redness, swelling, or drainage from affected area. Her wound has improved in size and appearance. - Physical Exam Vital Signs Temp Pulse Resp BP 97.7 F L 62 18 163/78 H 06/26/20 11:00 06/26/20 11:00 06/26/20 10:37 06/26/20 11:00 General: Alert, Oriented x3, No apparent distress HEENT: Atraumatic, Normocephalic Oral: Moist Mucosa Neck: Supple, Trachea Midline Lungs: Normal air movement Abdomen: Soft, Non Tender Skin: Ulcer/ Wound - Left lower abdomen/groin ulcer with fat layer exposed. Granulation tissue is present. There is no tunneling, undermining, or probe to bone. Wound Measurements and Assessment WC - Nurse 1 - General Ulcer Measurement Start: 06/26/20 10:37 Freq: Status: Active Protocol: Activity Type Activity Date Activity User E-Sign Co-Sign Detail Recorded Client Recorded Date Recorded By Document 06/26/20 10:37 DL [id number] 06/26/20 10:43 DL 06/26/20 10:37 Wound Center Nurse 1 [Ulcer Assessment] #1 L LOWER ABD QUAD POST OP -Current Size (cm) - Length 1.5 -Current Size (cm) - Width 3.8 -Current Size (cm) - Depth 0.1 -Total Square Cm 5.70 -Photo Taken No -Exudate Amt None Present -Wound Margin Distinct, Outline Attached -Granulation Amt Large (67-100%) -Slough/Fibrin No -Necrosis Amt None Present (0 %) -Structure Exposed N/A -Texture (Beatrice-wound Skin Appearance) Scarring -Moisture (Beatrice-wound Skin Appearance No Abnormality ) -Color (Beatrice-wound Skin Appearance) No Abnormality -Temperature (Beatrice-wound Skin No Abnormality Appearance) (Pt Warm) -Tenderness on Palpation (Beatrice-wound No Skin Appearance) -Ulcer Cleansing Rinsed/ Irrigated with Saline -Foul Odor after Cleansing No -Anesthetic Used 4% Lidocaine Solution - Nurse 2 - General Ulcer CM Notes Start: 06/26/20 10:37 Freq: Status: Active Protocol: Activity Type Activity Date Activity User E-Sign Co-Sign Detail Recorded Client Recorded Date Recorded By Document 06/26/20 10:50 GIOVANNI [id number] 06/26/20 10:53 GIOVANNI 06/26/20 10:50 Wound Center Nurse 2 [Procedure/Treatment] -Time 10:50 -Correct Patient Yes -Correct Side, Site, Position Yes -Correct Procedure Yes -Procedure Performed Yes -Type of Procedure Debridement -Clinical Debridement Subcutaneous -Tissue Removed Subcutaneous -Post Debridement (cm) - Length 2.0 -Post Debridement (cm) - Width 4.0 -Post Debridement (cm) - Depth 0.1 -Total Square (Post) (cm) 8.00 -Area of Debridement (cm) - Length 2.0 -Area of Debridement (cm) - Width 4.0 -Total Square (Area) (cm) 8.00 -Tunneling No -Undermining/Tunneling No -Circular Undermining No -Wound/Ulcer Outcome Not Healed -Ulcer Cleansing Rinsed/ Irrigated with Saline -Foul Odor after Cleansing No -Bioengineered Tissue No -Bleeding Controlled with Pressure -Offloading No -Treatment Response Procedure Tolerated Well -Debridement - Subq, 1st 20sq cm Yes [See Physician Procedure note for Specifics] Pain Scale: 0-10 Numeric [Pain] -Is Patient Pain Free? Yes - Nurse 3 - General Ulcer D/C NN Start: 06/26/20 10:37 Freq: Status: Active Protocol: Activity Type Activity Date Activity User E-Sign Co-Sign Detail Recorded Client Recorded Date Recorded By Document 06/26/20 11:00 DL [id number] 06/26/20 11:03 DL 06/26/20 11:00 Wound Care Nurse 3 [Wound Dressing] #1 L LOWER ABD QUAD POST OP -Ulcer Cleansing Rinsed/ Irrigated with Saline -Foul Odor after Cleansing No -Primary Dressing Applied Aquacel AG 4x4 -Primary Dressing Covered/Secured Dry Gauze, with Secured with Tape -Aquacel AG 4x4 1 [Post Procedure Tolerated] -Treatment Response Procedure Tolerated Well Vital Signs [Temperature Protocol: VS] -Temperature (97.8 F-99.1 F) 97.7 F L -Temperature Source Temporal [Pulse] -Pulse Rate (60-100) 62 -Pulse Location Monitor [Blood Pressure] -Blood Pressure (90/60-120/80) 163/78 H -Blood Pressure Mean (mm Hg) 106 -Source Monitor Pain Scale: 0-10 Numeric [Pain] -Is Patient Pain Free? Yes - Visit Discharge [Visit Discharge Information] -Discharge Condition Stable -Ambulatory Status Ambulatory -Transportation Private Auto Psych/Mental Status: Normal Affect, Appropriate Debridement Note Post-Debridement Measurements/Treatment WC - Nurse 2 - General Ulcer CM Notes Start: 06/26/20 10:37 Freq: Status: Active Protocol: Activity Type Activity Date Activity User E-Sign Co-Sign Detail Recorded Client Recorded Date Recorded By Document 06/26/20 10:50 [id number] 06/26/20 10:53 06/26/20 10:50 Wound Center Nurse 2 #1 L LOWER ABD QUAD POST OP -Time 10:50 -Correct Patient Yes -Correct Side, Site, Position Yes -Correct Procedure Yes -Procedure Performed Yes -Type of Procedure Debridement -Clinical Debridement Subcutaneous -Tissue Removed Subcutaneous -Post Debridement (cm) - Length 2.0 -Post Debridement (cm) - Width 4.0 -Post Debridement (cm) - Depth 0.1 -Total Square (Post) (cm) 8.00 -Area of Debridement (cm) - Length 2.0 -Area of Debridement (cm) - Width 4.0 -Total Square (Area) (cm) 8.00 -Tunneling No -Undermining/Tunneling No -Circular Undermining No -Wound/Ulcer Outcome Not Healed -Ulcer Cleansing Rinsed/ Irrigated with Saline -Foul Odor after Cleansing No -Bioengineered Tissue No -Bleeding Controlled with Pressure -Offloading No -Treatment Response Procedure Tolerated Well -Debridement - Subq, 1st 20sq cm Yes Pain Scale: 0-10 Numeric Is Patient Pain Free? Yes - Nurse 3 - General Ulcer D/C NN Start: 06/26/20 10:37 Freq: Status: Active Protocol: Activity Type Activity Date Activity User E-Sign Co-Sign Detail Recorded Client Recorded Date Recorded By Document 06/26/20 11:00 DL [id number] 06/26/20 11:03 DL 06/26/20 11:00 Wound Care Nurse 3 #1 L LOWER ABD QUAD POST OP -Ulcer Cleansing Rinsed/ Irrigated with Saline -Foul Odor after Cleansing No -Primary Dressing Applied Aquacel AG 4x4 -Primary Dressing Covered/Secured with Dry Gauze, Secured with Tape -Aquacel AG 4x4 1 Treatment Response Procedure Tolerated Well Vital Signs Temperature (97.8 F-99.1 F) 97.7 F L Temperature Source Temporal Pulse Rate (60-100) 62 Pulse Location Monitor Blood Pressure (90/60-120/80) 163/78 H Blood Pressure Mean (mm Hg) 106 Source Monitor Pain Scale: 0-10 Numeric Is Patient Pain Free? Yes WC - Visit Discharge Discharge Condition Stable Ambulatory Status Ambulatory Transportation Private Auto Wound debrided: Groin/lower abdomen ulcer Laterality: Left Type of Debridement: Excisional debridement Anesthesia Used: 5% Lidocaine Gel Depth: in the subcutaneous layer Percentage of wound debrided: 100 Instrument Used: 7mm curette Tissue Removed: Slough and devitalized tissue Severity: Fat Layer Exposed Amount of bleeding with debridement: Mild Bleeding Controlled with: Pressure Patient tolerated procedure well Assessment/Plan Active Problems Ulcer of left groin (Chronic) Ulcer of abdomen wall (Chronic) Left lower abdomen Hidradenitis (Chronic) Assessment: 1. Nonhealing diabetes ulcer left lateral abdominal wall skin crease and left inguinal area. 2. Hidradenitis. 3. Diabetes mellitus. 4. Obesity. 5. Smoker. 6. Abdominal panniculus with panniculitis. Plan: Wound care: Wash with soap and water daily. Continue Aquacel-Ag daily to the left left groin/lower abdomen ulcer. She finished her Augmentin and Doxycycline for operative culture that showed Prevotella bivia. Repeat wound culture on 03/20/20 showed Staphylococcus aureus, Streptococcus anginosus, Prevotella bivia, and Clostridium group. She was placed on Augmentin until 05/01/20 and has finished them. Prealbumin from 02/22/20 was 10.8. Encouraged nutritional supplementation with protein to help the healing process. Follow-up 2 weeks. Encouraged the patient to stop smoking as it may have deleterious effects on wound healing. Note: [employer] speech recognition oriental rug stretcher software was used to create portions of this document. Sound-alike and misspelled words, as well as other oriental rug stretcher errors may be contained in the documentation. [id number]: [id number] Nicole subq tissue 20 sq cm/<
[2020-07-10 11:23] VITALS: BP 115/58; PULSE 50
--- NOTE | 2020-07-10 12:13 | PCM.WC.PN ---
Type of Wound Date of Service: 07/10/20 Chief Complaint: Nonhealing diabetic hidradenitis ulcer left lateral abdominal wall and left inguinal area. History of Wound: Surgery 02/21/20 - 1. Surgical preparation left abdominal wall skin crease with excisional debridement skin, subcutaneous tissue, and fascia for necrotizing soft tissue hidradenitis abscess infection. 2. Surgical preparation left inguinal area with excision necrotizing soft tissue hidradenitis abscess infection. Wound care - Silver dressing. Operative culture - Prevotella bivia. She was treated with Augmentin and Doxycycline and has finished them. Another wound culture was done on 03/20/20. It was positive for Staphylococcus aureus, Streptococcus anginosus, Prevotella bivia, and Clostridium group. She was placed on Augmentin and has finished them. Prealbumin from 02/22/20 was 10.8. Encourage nutritional supplementation with protein to help the healing process. Her HgbA1c from 02/18/20 was 11.7. Today she denies fever. Her appetite is ok. Progress of Wound: Improved. - Physical Exam Vital Signs Temp Pulse Resp BP 97.4 F L 50 L 16 115/58 L 07/10/20 10:38 07/10/20 11:23 07/10/20 10:38 07/10/20 11:23 Wound Measurements and Assessment WC - Nurse 1 - General Ulcer Measurement Start: 06/26/20 10:37 Freq: Status: Active Protocol: Activity Type Activity Date Activity User E-Sign Co-Sign Detail Recorded Client Recorded Date Recorded By Document 07/10/20 10:38 [id number] 07/10/20 10:42 GIOVANNI 07/10/20 10:38 Wound Center Nurse 1 [Ulcer Assessment] #1 L LOWER ABD QUAD POST OP -Combined with other wound No -Current Size (cm) - Length 0.8 -Current Size (cm) - Width 2.0 -Current Size (cm) - Depth 0.2 -Total Square Cm 1.60 -Photo Taken No -Epithelialization Medium 34-66% -Tunneling No -Undermining/Tunneling No -Circular Undermining No -Exudate Amt Small -Exudate Type Sanguineous -Wound Margin Flat & Intact -Granulation Amt Medium (34-66%) -Granulation Quality Red -Slough/Fibrin Yes -Necrosis Amt Small (1-33%) -Necrotic Tissue Type Adherent Slough -Structure Exposed N/A -Texture (Beatrice-wound Skin Appearance) Assessed -Moisture (Beatrice-wound Skin Appearance Assessed,Dry/ ) Scaly -Color (Beatrice-wound Skin Appearance) Assessed -Temperature (Beatrice-wound Skin No Abnormality Appearance) (Pt Warm) -Tenderness on Palpation (Beatrice-wound No Skin Appearance) -Ulcer Cleansing Rinsed/ Irrigated with Saline -Foul Odor after Cleansing No -Anesthetic Used 4% Lidocaine Solution [Edema Assessment] -Lower Limb Edema Present NA WC - Nurse 2 - General Ulcer CM Notes Start: 06/26/20 10:37 Freq: Status: Active Protocol: Activity Type Activity Date Activity User E-Sign Co-Sign Detail Recorded Client Recorded Date Recorded By Document 07/10/20 11:11 [id number] 07/10/20 11:12 07/10/20 11:11 Wound Center Nurse 2 [Procedure/Treatment] #1 L LOWER ABD QUAD POST OP -Time 11:12 -Correct Patient Yes -Correct Side, Site, Position Yes -Correct Procedure Yes -Procedure Performed Yes -Type of Procedure Debridement -Clinical Debridement Subcutaneous -Tissue Removed Subcutaneous -Post Debridement (cm) - Length 0.8 -Post Debridement (cm) - Width 2.1 -Post Debridement (cm) - Depth 0.2 -Total Square (Post) (cm) 1.68 -Area of Debridement (cm) - Length 0.8 -Area of Debridement (cm) - Width 2.1 -Total Square (Area) (cm) 1.68 -Tunneling No -Undermining/Tunneling No -Circular Undermining No -Wound/Ulcer Outcome Not Healed -Ulcer Cleansing Rinsed/ Irrigated with Saline -Foul Odor after Cleansing No -Bioengineered Tissue No -Bleeding Controlled with Pressure -Offloading No -Type of Offloading Surgical Shoe -Treatment Response Procedure Tolerated Well -Debridement - Subq, 1st 20sq cm Yes [See Physician Procedure note for Specifics] Pain Scale: 0-10 Numeric [Pain] -Is Patient Pain Free? Yes - Nurse 3 - General Ulcer D/C NN Start: 06/26/20 10:37 Freq: Status: Active Protocol: Activity Type Activity Date Activity User E-Sign Co-Sign Detail Recorded Client Recorded Date Recorded By Document 07/10/20 11:23 MS [id number] 10/19/20 11:24 MS 07/10/20 11:23 Wound Care Nurse 3 [Wound Dressing] #1 L LOWER ABD QUAD POST OP -Ulcer Cleansing Rinsed/ Irrigated with Saline -Foul Odor after Cleansing No -Negative Pressure Wound Therapy N/A -Primary Dressing Applied Aquacel AG 4x4 -Primary Dressing Covered/Secured Dry Gauze, with Secured with Tape -Aquacel AG 4x4 1 Vital Signs [Pulse] -Pulse Rate (60-100) 50 L -Pulse Location Monitor [Blood Pressure] -Blood Pressure (90/60-120/80) 115/58 L -Blood Pressure Mean (mm Hg) 77 -Source Monitor WC - Visit Discharge [Visit Discharge Information] -Discharge Condition Stable -Ambulatory Status Ambulatory -Transportation Private Auto Debridement Note Post-Debridement Measurements/Treatment - Nurse 2 - General Ulcer CM Notes Start: 06/26/20 10:37 Freq: Status: Active Protocol: Activity Type Activity Date Activity User E-Sign Co-Sign Detail Recorded Client Recorded Date Recorded By Document 06/26/20 10:50 [id number] 06/26/20 10:53 Document 07/10/20 11:11 [id number] 07/10/20 11:12 06/26/20 07/10/20 10:50 11:11 Wound Center Nurse 2 #1 L LOWER ABD QUAD POST OP -Time 10:50 11:12 -Correct Patient Yes Yes -Correct Side, Site, Position Yes Yes -Correct Procedure Yes Yes -Procedure Performed Yes Yes -Type of Procedure Debridement Debridement -Clinical Debridement Subcutaneous Subcutaneous -Tissue Removed Subcutaneous Subcutaneous -Post Debridement (cm) - Length 2.0 0.8 -Post Debridement (cm) - Width 4.0 2.1 -Post Debridement (cm) - Depth 0.1 0.2 -Total Square (Post) (cm) 8.00 1.68 -Area of Debridement (cm) - Length 2.0 0.8 -Area of Debridement (cm) - Width 4.0 2.1 -Total Square (Area) (cm) 8.00 1.68 -Tunneling No No -Undermining/Tunneling No No -Circular Undermining No No -Wound/Ulcer Outcome Not Healed Not Healed -Ulcer Cleansing Rinsed/ Rinsed/ Irrigated with Irrigated with Saline Saline -Foul Odor after Cleansing No No -Bioengineered Tissue No No -Bleeding Controlled with Pressure Pressure -Offloading No No -Type of Offloading Surgical Shoe -Treatment Response Procedure Procedure Tolerated Well Tolerated Well -Debridement - Subq, 1st 20sq cm Yes Yes Pain Scale: 0-10 Numeric Is Patient Pain Free? Yes Yes - Nurse 3 - General Ulcer D/C NN Start: 06/26/20 10:37 Freq: Status: Active Protocol: Activity Type Activity Date Activity User E-Sign Co-Sign Detail Recorded Client Recorded Date Recorded By Document 06/26/20 11:00 DL [id number] 06/26/20 11:03 DL Document 07/10/20 11:23 MS [id number] 07/10/20 11:24 MS 06/26/20 07/10/20 11:00 11:23 Wound Care Nurse 3 #1 L LOWER ABD QUAD POST OP -Ulcer Cleansing Rinsed/ Rinsed/ Irrigated with Irrigated with Saline Saline -Foul Odor after Cleansing No No -Negative Pressure Wound Therapy N/A -Primary Dressing Applied Aquacel AG 4x4 Aquacel AG 4x4 -Primary Dressing Covered/Secured with Dry Gauze, Dry Gauze, Secured with Secured with Tape Tape -Aquacel AG 4x4 1 1 Treatment Response Procedure Tolerated Well Vital Signs Temperature (97.8 F-99.1 F) 97.7 F L Temperature Source Temporal Pulse Rate (60-100) 62 50 L Pulse Location Monitor Monitor Blood Pressure (90/60-120/80) 163/78 H 115/58 L Blood Pressure Mean (mm Hg) 106 77 Source Monitor Monitor Pain Scale: 0-10 Numeric Is Patient Pain Free? Yes - Visit Discharge Discharge Condition Stable Stable Ambulatory Status Ambulatory Ambulatory Transportation Private Auto Private Auto Wound debrided: #1 Left lateral abdominal wall and left inguinal area. Laterality: Left Wound Grade/Stage: 2. Type of Debridement: Excisional debridement Anesthesia Used: 4% Lidocaine Solution Depth: Down to and including healthy tissue, in the subcutaneous layer Percentage of wound debrided: 100 Instrument Used: 3mm curette Tissue Removed: subcutaneous tissue. Severity: Fat Layer Exposed Amount of bleeding with debridement: Mild Bleeding Controlled with: Pressure Patient tolerated procedure well Assessment/Plan Assessment: 1. Nonhealing diabetes ulcer left lateral abdominal wall skin crease and left inguinal area. 2. Hidradenitis. 3. Diabetes mellitus. 4. Obesity. 5. Smoker. 6. Abdominal panniculus with panniculitis. Plan: Continue Silver dressing changes daily. She finished her Augmentin and Doxycycline for operative culture that showed Prevotella bivia. Repeat wound culture on 03/20/20 showed Staphylococcus aureus, Streptococcus anginosus, Prevotella bivia, and Clostridium group. She was placed on Augmentin and has finished them. Prealbumin from 02/22/20 was 10.8. Encourage nutritional supplementation with protein to help the healing process. She is back to work and doing ok. After healing, she will followup in my office on an as needed basis to discuss her abdominal panniculus for a panniculectomy since the skin overhangs the scar leading to friction and moisture buildup that can lead to recurrent abrasion ulceration. Her last HgbA1c on 02/18/20 was 11.7. It will need to be less than 8 before proceeding with a panniculectomy. Followup 2 weeks. Encouraged the patient to stop smoking as it may have deleterious effects on wound healing. [id number]-[id number]: [id number] Nicole subq tissue 20 sq cm/< - ICD-10 - L98.492, L73.2, E11.9, M79.3, E65, E66.9, F17.200
== END 2020-07-22 23:59 ==
LOC: WC 10:30
PROVIDERS: PCP Internal Medicine; Visit Provider Surgery
DX: E11.622 Type 2 diabetes mellitus with other skin ulcer (principal); L98.492 Non-pressure chronic ulcer of skin of other sites with fat layer exposed; L73.2 Hidradenitis suppurativa; M79.3 Panniculitis, unspecified; E66.9 Obesity, unspecified; F17.200 Nicotine dependence, unspecified, uncomplicated; E11.9 Type 2 diabetes mellitus without complications; E65 Localized adiposity
CPT/HCPCS: 11042

== ENCOUNTER 2020-08-07 08:30 | Outpatient (RCR) | payer OTHER, SELFPAY ==
[2020-07-10 10:38] VITALS: BMI 47.2
[2020-07-23 00:20] VITALS: BP 115/58; PULSE 50; RESP 16; TEMP 36.3
[2020-07-24 09:45] VITALS: BP 122/70; PULSE 57; RESP 17; TEMP 36.3; BMI 47.2
[2020-07-24 10:16] VITALS: BP 158/54; PULSE 54; RESP 16
--- NOTE | 2020-07-24 12:37 | PCM.WC.PN ---
(1) Ulcer of left groin Status: Chronic Qualifiers: Code(s): L98.499 - Non-pressure chronic ulcer of skin of other sites with unspecified severity (2) Ulcer of abdomen wall Status: Chronic Qualifiers: Code(s): L98.499 - Non-pressure chronic ulcer of skin of other sites with unspecified severity Comment: Left lower abdomen (3) Panniculitis Status: Chronic Code(s): M79.3 - Panniculitis, unspecified (4) Obesity Status: Chronic Code(s): E66.9 - Obesity, unspecified (5) Type 2 diabetes mellitus Status: Chronic Code(s): E11.9 - Type 2 diabetes mellitus without complications (6) Smoker Status: Chronic Code(s): F17.200 - Nicotine dependence, unspecified, uncomplicated Type of Wound Date of Service: 07/24/20 Chief Complaint: Nonhealing diabetic hidradenitis ulcer left lateral abdominal wall and left inguinal area. History of Wound: Surgery 02/21/20 - 1. Surgical preparation left abdominal wall skin crease with excisional debridement skin, subcutaneous tissue, and fascia for necrotizing soft tissue hidradenitis abscess infection. 2. Surgical preparation left inguinal area with excision necrotizing soft tissue hidradenitis abscess infection. Wound care - Silver dressing. Operative culture - Prevotella bivia. She was treated with Augmentin and Doxycycline and has finished them. Another wound culture was done on 03/20/20. It was positive for Staphylococcus aureus, Streptococcus anginosus, Prevotella bivia, and Clostridium group. She was placed on Augmentin and has finished them. Prealbumin from 02/22/20 was 10.8. Encourage nutritional supplementation with protein to help the healing process. Her HgbA1c from 02/18/20 was 11.7. Today she denies fever. Her appetite is ok. Progress of Wound: Improved. - Physical Exam Vital Signs Temp Pulse Resp BP 97.3 F L 54 L 16 158/54 H 07/24/20 09:45 07/24/20 10:16 07/24/20 10:16 07/24/20 10:16 General: Alert, Oriented x3, Cooperative HEENT: Atraumatic, PERRLA Oral: Moist Mucosa Lungs: Normal air movement Cardiovascular: Regular rate Abdomen: Soft, Obese Extremities: Capillary Refill Less than 3 Seconds Skin: Ulcer/ Wound - Left groin ulcer that continues to be opened but has shown much improvement with granulaton tissue and is healing well. Wound Measurements and Assessment - Nurse 1 - General Ulcer Measurement Start: 07/24/20 09:45 Freq: Status: Active Protocol: Activity Type Activity Date Activity User E-Sign Co-Sign Detail Recorded Client Recorded Date Recorded By Document 07/24/20 09:45 MS [id number] 07/24/20 09:51 MS 07/24/20 09:45 Wound Center Nurse 1 [Ulcer Assessment] #1 L LOWER ABD QUAD POST OP -Current Size (cm) - Length 2.5 -Current Size (cm) - Width 0.5 -Current Size (cm) - Depth 0.3 -Total Square Cm 1.25 -Exudate Amt Small -Exudate Type Serosanguineous -Wound Margin Distinct, Outline Attached -Granulation Amt Medium (34-66%) -Granulation Quality [place] -Slough/Fibrin Yes -Necrosis Amt Small (1-33%) -Structure Exposed N/A -Texture (Beatrice-wound Skin Appearance) No Abnormality, Assessed -Moisture (Beatrice-wound Skin Appearance No Abnormality, ) Assessed -Color (Beatrice-wound Skin Appearance) No Abnormality, Assessed -Tenderness on Palpation (Beatrice-wound No Skin Appearance) -Ulcer Cleansing Rinsed/ Irrigated with Saline -Foul Odor after Cleansing No -Anesthetic Used 4% Lidocaine Solution - Nurse 2 - General Ulcer CM Notes Start: 07/24/20 09:45 Freq: Status: Active Protocol: Activity Type Activity Date Activity User E-Sign Co-Sign Detail Recorded Client Recorded Date Recorded By Document 07/24/20 10:04 [id number] 07/24/20 10:06 07/24/20 10:04 Wound Center Nurse 2 [Procedure/Treatment] -Time 10:05 -Correct Patient Yes -Correct Side, Site, Position Yes -Correct Procedure Yes -Procedure Performed Yes -Type of Procedure Debridement -Clinical Debridement Subcutaneous -Tissue Removed Subcutaneous -Post Debridement (cm) - Length 0.5 -Post Debridement (cm) - Width 3.0 -Post Debridement (cm) - Depth 0.2 -Total Square (Post) (cm) 1.50 -Area of Debridement (cm) - Length 0.5 -Area of Debridement (cm) - Width 3.0 -Total Square (Area) (cm) 1.50 -Tunneling No -Undermining/Tunneling No -Circular Undermining No -Wound/Ulcer Outcome Not Healed -Ulcer Cleansing Rinsed/ Irrigated with Saline -Foul Odor after Cleansing No -Bioengineered Tissue No -Bleeding Controlled with Pressure -Offloading No -Treatment Response Procedure Tolerated Well -Debridement - Subq, 1st 20sq cm Yes [See Physician Procedure note for Specifics] Pain Scale: 0-10 Numeric [Pain] -Is Patient Pain Free? Yes - Nurse 3 - General Ulcer D/C NN Start: 07/24/20 09:45 Freq: Status: Active Protocol: Activity Type Activity Date Activity User E-Sign Co-Sign Detail Recorded Client Recorded Date Recorded By Document 07/24/20 10:16 [facility] [id number] 07/24/20 10:18 [facility] 07/24/20 10:16 Wound Care Nurse 3 [Wound Dressing] #1 L LOWER ABD QUAD POST OP -Ulcer Cleansing Rinsed/ Irrigated with Saline -Foul Odor after Cleansing No -Primary Dressing Applied C Hydrogel ($), NonAdherent Contact Layer -Primary Dressing Covered/Secured Dry Gauze, with Secured with Tape [Post Procedure Tolerated] -Treatment Response Procedure Tolerated Well Vital Signs [Pulse] -Pulse Rate (60-100) 54 L -Pulse Location Monitor [Respirations] -Respiratory Rate (12-18) 16 -Respiratory rate source Observation [Blood Pressure] -Blood Pressure (90/60-120/80) 158/54 H -Blood Pressure Mean (mm Hg) 88 -Source Monitor -Position Sitting -Blood Pressure Location Left Forearm Pain Scale: 0-10 Numeric [Pain] -Is Patient Pain Free? Yes - Visit Discharge [Visit Discharge Information] -Discharge Condition Stable -Ambulatory Status Ambulatory -Transportation Private Auto Musculoskeletal: No Tenderness to Palpation of Joints or Extremities Neurological: Cranial nerves II-XII grossly intact Psych/Mental Status: Normal Affect, Appropriate Debridement Note Post-Debridement Measurements/Treatment - Nurse 2 - General Ulcer CM Notes Start: 07/24/20 09:45 Freq: Status: Active Protocol: Activity Type Activity Date Activity User E-Sign Co-Sign Detail Recorded Client Recorded Date Recorded By Document 07/24/20 10:04 [id number] 07/24/20 10:06 07/24/20 10:04 Wound Center Nurse 2 #1 L LOWER ABD QUAD POST OP -Time 10:05 -Correct Patient Yes -Correct Side, Site, Position Yes -Correct Procedure Yes -Procedure Performed Yes -Type of Procedure Debridement -Clinical Debridement Subcutaneous -Tissue Removed Subcutaneous -Post Debridement (cm) - Length 0.5 -Post Debridement (cm) - Width 3.0 -Post Debridement (cm) - Depth 0.2 -Total Square (Post) (cm) 1.50 -Area of Debridement (cm) - Length 0.5 -Area of Debridement (cm) - Width 3.0 -Total Square (Area) (cm) 1.50 -Tunneling No -Undermining/Tunneling No -Circular Undermining No -Wound/Ulcer Outcome Not Healed -Ulcer Cleansing Rinsed/ Irrigated with Saline -Foul Odor after Cleansing No -Bioengineered Tissue No -Bleeding Controlled with Pressure -Offloading No -Treatment Response Procedure Tolerated Well -Debridement - Subq, 1st 20sq cm Yes Pain Scale: 0-10 Numeric Is Patient Pain Free? Yes - Nurse 3 - General Ulcer D/C NN Start: 07/24/20 09:45 Freq: Status: Active Protocol: Activity Type Activity Date Activity User E-Sign Co-Sign Detail Recorded Client Recorded Date Recorded By Document 07/24/20 10:16 [facility] [id number] 07/24/20 10:18 [facility] 07/24/20 10:16 Wound Care Nurse 3 #1 L LOWER ABD QUAD POST OP -Ulcer Cleansing Rinsed/ Irrigated with Saline -Foul Odor after Cleansing No -Primary Dressing Applied C Hydrogel ($), NonAdherent Contact Layer -Primary Dressing Covered/Secured with Dry Gauze, Secured with Tape Treatment Response Procedure Tolerated Well Vital Signs Pulse Rate (60-100) 54 L Pulse Location Monitor Respiratory Rate (12-18) 16 Respiratory rate source Observation Blood Pressure (90/60-120/80) 158/54 H Blood Pressure Mean (mm Hg) 88 Source Monitor Position Sitting Blood Pressure Location Left Forearm Pain Scale: 0-10 Numeric Is Patient Pain Free? Yes - Visit Discharge Discharge Condition Stable Ambulatory Status Ambulatory Transportation Private Auto Wound debrided: Groin ulcer Laterality: Left Type of Debridement: Excisional debridement Anesthesia Used: 5% Lidocaine Gel Depth: Down to and including healthy tissue, in the subcutaneous layer Percentage of wound debrided: 100 Instrument Used: 3mm curette Tissue Removed: Subcutaneous tissue and slough Severity: Fat Layer Exposed Amount of bleeding with debridement: Mild Bleeding Controlled with: Pressure Patient tolerated procedure well Assessment/Plan Assessment: 1. Nonhealing diabetes ulcer left lateral abdominal wall skin crease and left inguinal area. 2. Hidradenitis. 3. Diabetes mellitus. 4. Obesity. 5. Smoker. 6. Abdominal panniculus with panniculitis. Plan: Stop Silver dressing changes and start collagen hydrogel with adaptic covered by gauze daily. She finished her Augmentin and Doxycycline for operative culture that showed Prevotella bivia. Repeat wound culture on 03/20/20 showed Staphylococcus aureus, Streptococcus anginosus, Prevotella bivia, and Clostridium group. She was placed on Augmentin and has finished them. Prealbumin from 02/22/20 was 10.8. Encourage nutritional supplementation with protein to help the healing process. She is back to work and doing ok. After healing, she will followup in my office on an as needed basis to discuss her abdominal panniculus for a panniculectomy since the skin overhangs the scar leading to friction and moisture buildup that can lead to recurrent abrasion ulceration. Her last HgbA1c on 02/18/20 was 11.7. It will need to be less than 8 before proceeding with a panniculectomy. Followup 2 weeks. Encouraged the patient to stop smoking as it may have deleterious effects on wound healing. [id number]: [id number] Nicole subq tissue 20 sq cm/<
[2020-08-07 08:43] VITALS: BP 136/75; PULSE 54; RESP 18; TEMP 36.4; BMI 47.2
--- NOTE | 2020-08-07 15:57 | PN.PCM_ITS ---
Type of Wound Date of Service: 08/07/20 Chief Complaint: Nonhealing diabetic hidradenitis ulcer left lateral abdominal wall and left inguinal area. History of Wound: Surgery 02/21/20 - 1. Surgical preparation left abdominal wall skin crease with excisional debridement skin, subcutaneous tissue, and fascia for necrotizing soft tissue hidradenitis abscess infection. 2. Surgical preparation left inguinal area with excision necrotizing soft tissue hidradenitis abscess infection. Wound care - Collagen Hydrogel. Operative culture - Prevotella bivia. She was treated with Augmentin and Doxycycline and has finished them. Another wound culture was done on 03/20/20. It was positive for Staphylococcus aureus, Streptococcus anginosus, Prevotella bivia, and Clostridium group. She was placed on Augmentin and has finished them. Prealbumin from 02/22/20 was 10.8. Encourage nutritional supplementation with protein to help the healing process. Her HgbA1c from 02/18/20 was 11.7. Today she denies fever. Her appetite is ok. Progress of Wound: Improved. - Physical Exam Vital Signs Temp Pulse Resp BP 97.6 F L 54 L 18 136/75 H 08/07/20 08:43 08/07/20 08:43 08/07/20 08:43 08/07/20 08:43 General: Alert, Oriented x3 HEENT: PERRLA, EOMI Oral: Moist Mucosa Neck: Supple Lungs: Clear to auscultation Cardiovascular: Regular rate, Regular Rhythm Abdomen: Soft, Non-Distended Skin: Ulcer/ Wound - some epithelialization noted. Wound Measurements and Assessment WC - Nurse 1 - General Ulcer Measurement Start: 07/24/20 09:45 Freq: Status: Active Protocol: Activity Type Activity Date Activity User E-Sign Co-Sign Detail Recorded Client Recorded Date Recorded By Document 08/07/20 08:43 DL [id number] 08/07/20 08:47 DL 08/07/20 08:43 Wound Center Nurse 1 [Ulcer Assessment] #1 L LOWER ABD QUAD POST OP -Current Size (cm) - Length 0 -Current Size (cm) - Width 0 -Current Size (cm) - Depth 0 -Total Square Cm 0 -Photo Taken Yes -Exudate Amt None Present -Wound Margin Flat & Intact -Granulation Amt Large (67-100%) -Granulation Quality [place] -Necrosis Amt None Present (0 %) -Structure Exposed N/A -Texture (Beatrice-wound Skin Appearance) Scarring -Moisture (Beatrice-wound Skin Appearance No Abnormality ) -Color (Beatrice-wound Skin Appearance) No Abnormality -Temperature (Beatrice-wound Skin No Abnormality Appearance) (Pt Warm) -Tenderness on Palpation (Beatrice-wound No Skin Appearance) -Ulcer Cleansing Wound Cleanser -Foul Odor after Cleansing No WC - Nurse 2 - General Ulcer CM Notes Start: 07/24/20 09:45 Freq: Status: Active Protocol: Activity Type Activity Date Activity User E-Sign Co-Sign Detail Recorded Client Recorded Date Recorded By Document 08/07/20 09:02 [id number] 08/07/20 09:04 08/07/20 09:02 Wound Center Nurse 2 [Procedure/Treatment] -Time 09:02 -Correct Patient No -Correct Side, Site, Position No -Correct Procedure No -Procedure Performed No -Tunneling No -Undermining/Tunneling No -Circular Undermining No -Wound/Ulcer Outcome Not Healed -Debridement - Subq, 1st 20sq cm No [See Physician Procedure note for Specifics] Pain Scale: 0-10 Numeric [Pain] -Is Patient Pain Free? Yes - Nurse 3 - General Ulcer D/C NN Start: 07/24/20 09:45 Freq: Status: Active Protocol: Activity Type Activity Date Activity User E-Sign Co-Sign Detail Recorded Client Recorded Date Recorded By Document 08/07/20 09:12 [facility] [id number] 08/07/20 09:12 [facility] 08/07/20 09:12 Wound Care Nurse 3 [Wound Dressing] #1 L LOWER ABD QUAD POST OP -Ulcer Cleansing Rinsed/ Irrigated with Saline -Foul Odor after Cleansing No -Primary Dressing Applied C Hydrogel ($) -Primary Dressing Covered/Secured Dry Gauze, with Secured with Tape [Post Procedure Tolerated] -Treatment Response Procedure Tolerated Well Vital Signs [Comments] -Comment no debridement Pain Scale: 0-10 Numeric [Pain] -Is Patient Pain Free? Yes - Visit Discharge [Visit Discharge Information] -Discharge Condition Stable -Ambulatory Status Ambulatory -Transportation Private Auto Neurological: Cranial nerves II-XII grossly intact Psych/Mental Status: Normal Affect, Appropriate Debridement Note Post-Debridement Measurements/Treatment WC - Nurse 2 - General Ulcer CM Notes Start: 07/24/20 09:45 Freq: Status: Active Protocol: Activity Type Activity Date Activity User E-Sign Co-Sign Detail Recorded Client Recorded Date Recorded By Document 07/24/20 10:04 [id number] 07/24/20 10:06 Document 08/07/20 09:02 [id number] 08/07/20 09:04 07/24/20 08/07/20 10:04 09:02 Wound Center Nurse 2 #1 L LOWER ABD QUAD POST OP -Time 10:05 09:02 -Correct Patient Yes No -Correct Side, Site, Position Yes No -Correct Procedure Yes No -Procedure Performed Yes No -Type of Procedure Debridement -Clinical Debridement Subcutaneous -Tissue Removed Subcutaneous -Post Debridement (cm) - Length 0.5 -Post Debridement (cm) - Width 3.0 -Post Debridement (cm) - Depth 0.2 -Total Square (Post) (cm) 1.50 -Area of Debridement (cm) - Length 0.5 -Area of Debridement (cm) - Width 3.0 -Total Square (Area) (cm) 1.50 -Tunneling No No -Undermining/Tunneling No No -Circular Undermining No No -Wound/Ulcer Outcome Not Healed Not Healed -Ulcer Cleansing Rinsed/ Irrigated with Saline -Foul Odor after Cleansing No -Bioengineered Tissue No -Bleeding Controlled with Pressure -Offloading No -Treatment Response Procedure Tolerated Well -Debridement - Subq, 1st 20sq cm Yes No Pain Scale: 0-10 Numeric Is Patient Pain Free? Yes Yes WC - Nurse 3 - General Ulcer D/C NN Start: 07/24/20 09:45 Freq: Status: Active Protocol: Activity Type Activity Date Activity User E-Sign Co-Sign Detail Recorded Client Recorded Date Recorded By Document 07/24/20 10:16 [facility] [id number] 07/24/20 10:18 [facility] Document 08/07/20 09:12 [facility] [id number] 08/07/20 09:12 [facility] 07/24/20 08/07/20 10:16 09:12 Wound Care Nurse 3 #1 L LOWER ABD QUAD POST OP -Ulcer Cleansing Rinsed/ Rinsed/ Irrigated with Irrigated with Saline Saline -Foul Odor after Cleansing No No -Primary Dressing Applied C Hydrogel ($), C Hydrogel ($) NonAdherent Contact Layer -Primary Dressing Covered/Secured with Dry Gauze, Dry Gauze, Secured with Secured with Tape Tape Treatment Response Procedure Procedure Tolerated Well Tolerated Well Vital Signs Pulse Rate (60-100) 54 L Pulse Location Monitor Respiratory Rate (12-18) 16 Respiratory rate source Observation Blood Pressure (90/60-120/80) 158/54 H Blood Pressure Mean (mm Hg) 88 Source Monitor Position Sitting Blood Pressure Location Left Forearm Comment no debridement Pain Scale: 0-10 Numeric Is Patient Pain Free? Yes Yes WC - Visit Discharge Discharge Condition Stable Stable Ambulatory Status Ambulatory Ambulatory Transportation Private Auto Private Auto Wound debrided: #1 Left lower abdominal wall and left inguinal area. Laterality: Left Wound Grade/Stage: 2. No debridement was completed today - Some evidence of epithelialization noted. Assessment/Plan Active Problems Ulcer of left groin (Chronic) Ulcer of abdomen wall (Chronic) Left lower abdomen Panniculitis (Chronic) Smoker (Chronic) Obesity (Chronic) Type 2 diabetes mellitus (Chronic) Assessment: 1. Nonhealing diabetes ulcer left lateral abdominal wall skin crease and left inguinal area. 2. Hidradenitis. 3. Diabetes mellitus. 4. Obesity. 5. Smoker. 6. Abdominal panniculus with panniculitis. Plan: Continue Collagen Hydrogel dressing changes daily. Place dry gauze over the Hydrogel to minimize moisture buildup from her panniculus and to minimize skin friction from her panniculus which can hamper the healing process. Stop the adaptic. She finished her Augmentin and Doxycycline for operative culture that showed Prevotella bivia. Repeat wound culture on 03/20/20 showed Staphylococcus aureus, Streptococcus anginosus, Prevotella bivia, and Clostridium group. She was placed on Augmentin and has finished them. Prealbumin from 02/22/20 was 10.8. Encourage nutritional supplementation with protein to help the healing process. She is back to work and doing ok. After healing, she will followup in my office on an as needed basis to discuss her abdominal panniculus for a panniculectomy since the skin overhangs the scar leading to friction and moisture buildup that can lead to recurrent abrasion ulceration. Her last HgbA1c on 02/18/20 was 11.7. It will need to be less than 8 before proceeding with a panniculectomy. Followup 2 weeks. Encouraged the patient to stop smoking as it may have deleterious effects on wound healing. Office Visits / Consults: [id number] OV L3 Est - ICD-10 - L98.492, L73.2, E11.9, M79.3, E65, E66.9, F17.200
== END 2020-08-21 23:59 ==
LOC: WC 08:30
PROVIDERS: PCP Internal Medicine; Visit Provider Surgery
DX: E11.622 Type 2 diabetes mellitus with other skin ulcer (principal); L98.492 Non-pressure chronic ulcer of skin of other sites with fat layer exposed; M79.3 Panniculitis, unspecified; L73.2 Hidradenitis suppurativa; E66.9 Obesity, unspecified; F17.200 Nicotine dependence, unspecified, uncomplicated
CPT/HCPCS: 11042; 99212; G0463